=== PATIENT | female | born 1965 | race Caucasian/White ===

== ENCOUNTER 2021-09-28 08:48 | Outpatient (CLI) | payer OTHER, SELFPAY ==
[2021-09-28 10:28] LABS: Chloride* 104 mmol/L (96-114); Potassium* 4.6 mmol/L (3.6-5.1); Sodium* 140 mmol/L (135-149)
[2021-09-28 10:30] LABS: Alkaline Phosphatase* 70 U/L (40-150); Amylase* 58 U/L (18-89); Aspartate Amino Transferase* 24 U/L (12-35); Blood Urea Nitrogen* 14 mg/dL (7-30); Carbon Dioxide* 31 mmol/L (20-32); Creatinine* 0.7 mg/dL (0.5-1.5); Estimated Glomerular Filt Rate 102.71; Glucose* 90 mg/dL (60-115); Total Protein* 6.4 g/dL (6.0-8.3)
[2021-09-28 10:31] LABS: Alanine Aminotransferase* 19 U/L (4-35); Calcium* 8.7 mg/dL (8.4-10.6); Lipase* 67 U/L (23-300)
== END 2021-09-28 08:49 | disposition home or self-care (01) ==
PROVIDERS: PCP Family Medicine; Visit Provider Family Medicine
DX: R74.8 Abnormal levels of other serum enzymes; K80.20 Calculus of gallbladder without cholecystitis without obstruction
CPT/HCPCS: 80053; 82150; 83690

== ENCOUNTER 2021-10-04 07:10 | Outpatient (CLI) | payer OTHER, SELFPAY ==
--- NOTE | 2021-10-04 07:15 | CRLHL7_ITS ---
For Patients: As a result of the Cures Act, medical imaging exams and procedure reports are released immediately into your electronic medical record. You may view this report before your referring provider. If you have questions, please contact your health care provider. INDICATION: ABNORMAL LEVELS OF OTHER SERUM ENZYMES, KNOWN GALLSTONES COMPARISON: Ultrasound and CT 08/12/2021 TECHNIQUE: Real time layne scale imaging and color Doppler analysis was performed of the abdomen. FINDINGS: The patient`s liver is of normal size and has uniform echogenicity. There is a normal appearance of the hepatic IVC and proximal abdominal aorta. There is no evidence of ascites. Small layering gallstones are again noted within the gallbladder lumen. The gallbladder wall measures 2 mm in thickness. The common bile duct is of normal size and measures 4 mm in diameter at the level of the chelo hepatis. The pancreas appears normal. There is no evidence of a stone or hydronephrosis within the right and left kidney. The right kidney measures 11.8 cm in length. The left kidney measures 12.2 cm in length. Multiple splenic lesions again noted including a subtly hyperechoic mass measuring 2.4 x 2.4 cm. Incidental splenule noted measuring 1.1 cm. Mildly prominent right upper quadrant lymph node is present measuring 2 cm. IMPRESSION: Stable cholelithiasis with multiple small mobile layering gallstones. No evidence of cholecystitis. Similar appearance of the spleen with multiple indeterminate hypoechoic/hyperechoic lesions. No ascites. No splenomegaly. Dictated by Myron Shukla MD @ 10/04/2021 9:12:24 AM (Electronically Signed)
== END 2021-10-04 07:11 | disposition home or self-care (01) ==
PROVIDERS: PCP Family Medicine; Visit Provider Family Medicine
DX: R74.8 Abnormal levels of other serum enzymes (principal); K80.20 Calculus of gallbladder without cholecystitis without obstruction; R10.9 Unspecified abdominal pain
CPT/HCPCS: 76700

== ENCOUNTER 2021-12-12 06:14 | Day surgery (SDC) | payer OTHER, SELFPAY ==
[2021-12-12] VITALS (19 sets, daily range): BP systolic 98–137; BP diastolic 59–81; PULSE 46–89; RESP 15–18; TEMP 36.2–36.8; O2SAT 87–99; BMI 26.2
[2021-12-12] MEDS: LACTATED RINGERS 1000 ML 1,000 ML 100 ML IV ×2 (07:00→07:46)
[2021-12-12] MEDS: SODIUM CHLORIDE 0.9 % (FLUSH) 10 ML SYRINGE IVF (07:00)
[2021-12-12] MEDS: CEFAZOLIN 2 GM INJ IVP (07:45)
[2021-12-12] MEDS: BUPIVACAINE 0.25% 30 ML INJECTION (08:24)
--- NOTE | 2021-12-12 08:48 | W.ANESCHARGE ---
Anesthesia Charges Start Date/Time Anesthesia Start Date: 12/12/21 Anesthesia Start Time: 07:27 Stop Date/Time Anesthesia Stop Date: 12/12/21 Anesthesia Stop Time: 08:44 Summary Emergency: No
[2021-12-12] MEDS: fentaNYL 100 MCG/2 ML inj 50 MCG IVP ×2 (08:58→09:22)
--- NOTE | 2021-12-12 09:03 | W.ANESCHARGE ---
Anesthesia Charges Start Date/Time Anesthesia Start Date: 12/12/21 Anesthesia Start Time: 07:27 Stop Date/Time Anesthesia Stop Date: 12/12/21 Anesthesia Stop Time: 08:44 Summary Emergency: No
--- NOTE | 2021-12-12 09:03 | PC.NURSE ---
reinforced dressing on patient's left abdomen. Steri strips secure and placed 2x2.
[2021-12-12] MEDS: ONDANSETRON 2 MG/ML inj 4 MG IVP (09:09)
[2021-12-12] MEDS: METOCLOPRAMIDE HCL 5 MG/ML INJ 10 MG IVP (09:55)
--- NOTE | 2021-12-12 10:14 | P.GSOP_ITS ---
Operative Note Date of procedure: 12/12/21 Type of Procedure: 1. Laparoscopic cholecystectomy. Procedure Description: After discussing the risks and benefits of the procedure, the patient signed informed consent.? The operative site was marked and the patient was brought to the operating room and placed on the operating table in supine position.? Care was taken to pad the patient's pressure points.?? The patient was then intubated by anesthesia.?? The operative site was then prepped and draped in the usual sterile fashion.? A time-out was then performed. ? A 5-mm laparoscopy port was placed in the left upper quadrant guided by a 5-mm laparoscope placed into a translucent trochar.~ Passage through the layers of the abdominal wall was visualized with the laparoscope.~ A pneumoperitoneum was established. A 0-degree 5-mm laparoscope was advanced into the abdomen. The abdomen was briefly surveyed, and no adhesions were noted. A 10-mm port were placed infraumbilically and two more 5 mm ports were placed on the right under direct visualization by laparoscope. The camera was then changed to 10 mm 30- degree scope and placed into the abdomen through the 10 mm port. The left upper quadrant port entrance was examined and no injury to intra-abdominal organs was identified. The gallbladder was identified, the fundus grasped and retracted cephalad. Omentum was adherent to the anterior surface of the gallbladder, and those adhesions were taken down with hook cautery. The infundibulum was grasped and retracted laterally, exposing the peritoneum overlying the triangle of Calot. This was then divided and exposed in a blunt fashion and with hook cautery. Common bile duct was not identified but care was taken not to injure it. The cystic duct was clearly identified and bluntly dissected circumferentially. Cystic artery was identified and was was very small. The tissues around it were dissected off. The cystic artery and the cystic duct were clearly going into the gallbladder. The cystic artery was divided with hook cautery. The proximal end of the cystic artery was clipped with 5 mm clip. The cystic duct was then doubly ligated with surgical clips on the patient's side and singly clipped on the gallbladder side and divided. The gallbladder was dissected from the liver bed in retrograde fashion using hookcautery. The gallbladder was placed into an Endo-Catch bag and removed through the infraumbilical incision. Surgical site was examined for bleeding. Minimal bleeding was noted from the gallbladder fossa. This was controlled with a 5 mm clip and hook cautery. No further bleeding was seen in the surgical field. The fascia of the infraumbilical incision was then closed with 0-0 vicryl using Hamilton Karol needle under direct visualization. Pneumoperitoneum was completely reduced after viewing removal of the trocars under direct vision. The skin was then closed with 4-0 monocryl and steristrips were applied. Instrument, sponge, and needle counts were correct at closure and at the conclusion of the case. The patient was transferred to PACU in stable condition. Findings: Cholelithiasis. No evidence of enlarged lymph nodes near the gallbladder or visualized portion of the right upper quadrant. No acute inflammation. Anesthesia: GETA Surgeon: Suyapa Gandhi MD Estimated blood loss (mL): 5 Condition: stable Disposition: PACU
[2021-12-12] MEDS: HYDROCODONE-ACETAMIN 5-325 MG 1 TAB PO (10:38)
== END 2021-12-12 11:37 | disposition home or self-care (01) ==
PROVIDERS: PCP Family Medicine; Visit Provider Surgery
PROC: 0FT44ZZ Resection of Gallbladder, Percutaneous Endoscopic Approach (ICD-10-PCS; CPT 47562; principal; 2021-12-12 07:30)
DX: K80.10 Calculus of gallbladder with chronic cholecystitis without obstruction (principal)
CPT/HCPCS: 47562; 00790; 88304; A9270; J0330; J0690; J1100; J2250; J2405; J2704; J2710; J2765; J3010; J3490; J7120

== ENCOUNTER 2022-01-05 13:11 | Outpatient (CLI) | payer OTHER, SELFPAY ==
--- OUTSIDE RECORDS SUMMARY | 2022-01-05 13:29 | XMS_ITS | Clinical Summary ---
:1965 Author Organization [employer] [facility] [employer] [facility] [place] [address] Care Team Providers Name Role Phone Unavailable Primary Care Provider Unavailable Allergies No known active allergies Medications Medication Sig Dispensed Refills Start Date End Date Status multivitamin (MVI) Take 1 tablet by 0 05/14/2015 Active tablet mouth once daily. Calcium-Cholecalciferol Take 1 tablet by 0 6 Active , D3, (CALCIUM 500+D) mouth 2 times 500 mg(1,250mg) -400 daily. unit chewable tablet cetirizine (ZYRTEC) 10 Take 1 tablet by 30 tablet 6 05/14/2015 Active mg tabletIndications: mouth once daily. Persistent cough ferrous sulfate, 65 mg Take 1 tablet by 60 tablet 3 12/15/2016 Active elemental, (IRON, mouth 2 times FERROUS SULFATE,) daily with meals. tabletIndications: S/P gastric bypass, Low ferritin Hospital, Clinic, or Ordered Dose Route Frequency Start Date End D ate Status Other Facility Administered Medication cyanocobalamin 1,000 1000 mcg IM Q 4 WEEKS (28 12/16/2016 Active mcg injection (VITAMIN DAYS) B12)Indications: S/P gastric bypass, Vitamin B 12 deficiency Active Problems Problem Noted Date Presbyopia 02/22/2017 Alcohol addiction 12/11/2014 Iron deficiency anemia 06/17/2013 Leukopenia 06/17/2013 Rectal bleeding 06/17/2013 Gallstones 02/20/2013 Vitamin D deficiency 02/07/2013 S/P gastric bypass 07/07/2011 Other chronic allergic conjunctivitis 09/15/2008 Myopia 09/15/2008 Impaired fasting glucose 07/21/2008 Other and unspecified hyperlipidemia 04/19/2007 Adjustment disorder with depressed mood 07/13/2006 Undiagnosed cardiac murmurs 07/13/2006 Overview: Aortic sclerosis without stenosis echoca rdiogram 02/25/14. Closed fracture of triquetral (cuneiform) bone of wris t 05/22/2006 Overview: 2002 Resolved Problems Problem Noted Date Resolved Date Vitamin D deficiency 06/17/2013 05/14/2015 Elevated liver enzymes 02/06/2013 06/17/2013 Normocytic anemia 02/06/2013 05/14/2015 Morbid obesity 12/28/2008 02/07/2011 Regular astigmatism 09/15/2008 02/24/2011 Encounters Date Type Specialty Care Team Description 12/12/2021 Lab Requisition Suyapa Gandhi MD from Last 3 Months Immunizations Name Administration Dates Next Due Influenza, IIV3 (Age >=3 years) 01/05/2011 Influenza, IIV4 12/27/2015 MMR 06/30/2008 Td (Age >=7 Years) 03/31/2002, 01/14/1991 Tdap 06/16/2008 Varicella Vaccine 12/15/1999 Family History Medical History Relation Name Comments Unknown Brother 2 brothers Diabetes Father Heart Disease Father at 67 from heart disease Stroke Father Hypertension Mother Hypertension Sister 2 sisters douglas high BP,Lyssa Cancer-breast No Family History Relation Name Status Comments Brother Father Mother Sister Social History Tobacco Use Types Packs/Day Years Used Date Former Smoker 5 Quit: 09/05/19 07 Smokeless Tobacco: Never Used Tobacco Cessation: Counseling Given: Yes Alcohol Use Standard Drinks/Week Comments No 0 (1 standard drink = 0.6 oz pure heavy drinker in the past - quit alcohol) drinking 12/11/14 Alcohol Habits Answer Date Recorded How often do you have a drink Not asked containing alcohol? How many drinks containing alcohol do Not asked you have on a typical day when you are drinking? How often do you have six or more Not asked drinks on one occasion? Comment: heavy drinker in the past - quit 016 drinking 12/11/14 Sex Assigned at Date Recorded Not on file Obstetrics History Para Term AB IAB SAB Ectopic Multiple Living Live Births 5 4 3 0 1 1 0 0 0 3 Date Outcome GA Total Labor/2nd/3rd Weight Sex Delivery Anes PTL Romana A 1 A5 Name Clin Labor IAB Term Term Term Para Last Filed Vital Signs Vital Sign Reading Time Taken Comments Blood Pressure 115/75 02/22/2017 5:29 PM LICENSED SOCIAL WORKER Pulse 55 02/22/2017 5:29 PM LICENSED SOCIAL WORKER Temperature 36.3 ??C (97.4 ??F) 12/16/2014 8:20 AM CDT Respiratory Rate 16 12/16/2014 8:20 AM CDT Oxygen Saturation 100% 05/14/2015 7:06 AM LICENSED SOCIAL WORKER Inhaled Oxygen Concentration - - Weight 68.9 kg (151 lb 12.8 oz) 12/15/2016 7:07 AM CDT Height 162.6 cm (5' 4) 12/15/2016 7:07 AM CDT Body Mass Index 26.06 12/15/2016 7:07 AM CDT Plan of Treatment Health Maintenance Due Date Last Done Comments COVID-19 vaccine series (#1) 1965 Colonoscopy through age 75 2012 Zoster (shingles) series for age 0104/09/2017 50+ (1 of 2) BMI (ht and wt on same day) for 12/15/2017 12/15/2016, 01/17, age 18+ 05/14/2015 Depression screening for age 12+ 12/15/2017 12/15/2016, Mammogram for age 45-75 02/07/2018 02/07/2017, 01/30/2017, 01/06/2014, Additional history exists Tetanus booster 06/16/2018 06/16/2008, 03/31/2002, 01/14/1991 Influenza for age 50-64 11/17/2021 12/27/2015, 01/05/2011 Lipids for age 45-75 12/15/2021 12/15/2016, 06/16/2013, 07/07/2011, Additional history exists Pap test for age 21-65 12/17/2021 12/17/2018, 12/17/2018, 12/15/2016, Additional history exists Tdap Completed 06/16/2008 Hepatitis C screening for age Completed 06/16/2013 18-79 Medical Devices Implanted Type Area Gas Plant Operator Device Shelf Model / Identifier Expiration Serial / Date Lot Jayant Flores [id number] - [id number] N/A: Everardo Cuenca And 09/17/2011 [id number] / Implanted: Qty: 1 on 01/14/2009 at [facility] / [id number] Procedures Procedure Name Priority Date/Time Associated Diagnosis Comme nts LAB TRACKING EVENT Routine 12/12/2021 8:33 AM CDT PATH TISSUE EXAM Routine 12/12/2021 8:15 AM Resul ts for this CDT procedure are i n the results section. from Last 3 Months Results LAB TRACKING EVENT (12/12/2021 8:33 AM CDT) Specimen Anatomical Collection Method Collection Time Receive d Time (Source) Location / / Volume Laterality Other (Other) Client Collect / 12/12/2021 8:33 AM 11/18 5:46 Unknown CDT PM CDT Suyapa Gandhi MD LAB BILL ONLY Performing Organization Address City/State/ZIP Code Phon e Number [employer] [id number] [place] [address] LABORATORY-CENTRAL 2000 LABORATORY PATH TISSUE EXAM (12/12/2021 8:15 AM CDT) Component Value Ref Test Analysis Performed At [facility] gist Range Method Time Signature Case Report Pathology Report ?Case: [id number] ? 12/14/2021 [place] Authorizing Provider: ??Suyapa Shannon MD ?Collected: ? 12/12/2021 0815 ? 9:18 AM HEALTH Ordering Location: ? [facility] CENTRAL LAB ?Received: ?12/12/2021 1815 ? CDT ASHLEY BROOKEC Pathologist: ? Daisy, Mckinley Wander ? ENTRAL ? MD [facility] ? LABORATORY Specimen: ?Gallbladder ? Final A) GALLBLADDER, CHOLECYSTECTOMY: 022 [facility] Electronically Diagnosis 1. Chronic cholecystitis 9:18 AM HEALT H signed by 2. Cholelithiasis CDT LABORATORY-C Nicola, 3. Negative for dysplasia and malignancy ENTRAL Mckinley HIGH IV, MD on 12/14/2021 at 9:18 AM Clinical Ms. Kessler is 12/14/2021 [facility] Information a 56 y.o. who 9:18 AM HEALTH presents with CDT LABORATORY-C biliary colic and ENTRAL now undergoes LABORATORY cholecystectomy. Gross A) Received in formalin, lab eled with the patient's name and gallbladder, is a 8.6 x 3.6 x 2.8 cm intact gallbladder. ??There are multiple black gallstones identified. There are no mucosal lesions kelvin 12/14/2021 [facility] Description ntified. The average wall th ickness is 0.1 cm. There is no abnormal wall thickening identified. No cystic duct lymph node is identified. Coordinator Of Online Programs sections are submitted in one cassette. 9:18 AM HEALTH CDT LABORATORY-C SSS 12/12/2021 ENTRAL LABORATORY Microscopic The final 12/14/2021 [facility] Description diagnosis is 9:18 AM HEALTH based on CDT LABORATORY-C microscopic ENTRAL examination of LABORATORY appropriate sections of all specimens. Additional 12/14/2021 [place] Information Interpreted at [facility], Central Laboratory - [address], [place] [address] 9:18 AM HEALTH CDT LABORATORY-C ENTRAL LABORATORY Specimen Anatomical Location Collection Method Collection Time Received Time (Source) / Laterality / Volume Other SPECIMEN FROM 12/12/2021 8:15 12/12/2021 6:15 GALLBLADDER / AM CDT PM CDT Unknown Suyapa Gandhi MD PATHOLOGY/CYTOLOGY Performing Organization Address City/State/ZIP Code Phon e Number [employer] [id number] [place] [address] LABORATORY-CENTRAL 2000 LABORATORY from Last 3 Months Insurance Payer Benefit Plan / Subscriber ID Effective Dates Phone Addre ss Type Group PREFERRED ONE PREFERRED ONE [id number] 2016-Present [address] [place] [address] [facility] Contract 03/19/2006 [address] CONTRACT,[employer]IT[employer] (Work) [address] [place] [address] Advance Directives Latest Code Status on File Code Status Date Activated Date Inactivated Comments Full Code 12/11/2014 8:42 PM 12/16/2014 12:40 PM Code Status Discussion: Not Discussed Full Code 01/14/2009 10:14 AM 01/15/2009 6:19 PM Full Code 01/14/2009 5:39 AM 01/14/2009 10:14 AM
== END 2022-01-05 13:12 | disposition home or self-care (01) ==
LOC: NFLDREF 13:15
PROVIDERS: PCP Family Medicine; Visit Provider Family Medicine
DX: R30.9 Painful micturition, unspecified (principal); R30.0 Dysuria
CPT/HCPCS: 87086

== ENCOUNTER 2022-02-22 07:09 | Outpatient (CLI) | payer OTHER, SELFPAY ==
--- NOTE | 2022-02-22 07:15 | CRLHL7_ITS ---
For Patients: As a result of the Century Cures Act, medical imaging exams and procedure reports are released immediately into your electronic medical record. You may view this report before your referring provider. If you have questions, please contact your health care provider. INDICATION: Lymphadenopathy TECHNIQUE: Ultrasound abdomen complete. Sonographic images of the entire abdomen were obtained using layne-scale and color Doppler. COMPARISON: FINDINGS: Liver: Normal in size and echotexture. No masses. No intrahepatic biliary dilatation. Gallbladder: No stones or sludge. Normal wall thickness. No pericholecystic fluid. Common bile duct: 4 mm. Pancreas: Normal. Spleen: Normal in size and appearance. Right kidney: 10.1 cm. Normal echotexture and cortex. No masses, stones, or hydronephrosis. Left kidney: 10.3. Normal echotexture and cortex. No masses, stones, or hydronephrosis. Vasculature: Proximal abdominal aorta and IVC are normal in caliber. IMPRESSION: Unremarkable abdomen ultrasound. Previously noted splenic cyst and require lymph node not identified on current study. Dictated by Myron Salas MD @ 02/22/2022 9:14:03 AM (Electronically Signed)
== END 2022-02-22 07:10 | disposition home or self-care (01) ==
PROVIDERS: PCP Family Medicine; Visit Provider Surgery
DX: R59.1 Generalized enlarged lymph nodes (principal)
CPT/HCPCS: 76705

== ENCOUNTER 2022-02-22 14:47 | Outpatient (CLI) | payer OTHER, SELFPAY ==
--- OUTSIDE RECORDS SUMMARY | 2022-02-22 07:08 | XMS_ITS | Clinical Summary ---
:1965 Author Organization [employer] [facility] Address [place] [address] Care Team Providers Name Role Phone Unavailable [...] Comments Blood Pressure 115/75 02/22/2017 5:29 PM RESIDUE FURNACE OPERATOR Pulse 55 02/22/2017 5:29 PM RESIDUE FURNACE OPERATOR Temperature 36.3 ??C (97.4 ??F) 12/16/2014 8:20 AM CDT Respiratory Rate 16 12/16/2014 8:20 AM CDT Oxygen Saturation 100% 05/14/2015 7:06 AM RESIDUE FURNACE OPERATOR Inhaled Oxygen Concentration - - Weight 68.9 kg (151 lb 12.8 oz) 12/15/2016 7:07 AM CDT Height 162.6 cm (5' 4) 12/15/2016 7:07 AM CDT Body Mass Index 26.06 12/15/2016 7:07 AM CDT Plan of Treatment Upcoming Encounters Date Type Specialty Care Team Description 02/22/2022 Orders Only Health Maintenance Due Date Last Done Comments COVID-19 vaccine series (#1) 1965 HIV for age 15-65 1982 Colonoscopy through age 75 2012 Zoster (shingles) [...] 06/16/2013 18-79 Medical Devices Implanted Type Area Jointer Operator Device Shelf Model / Identifier Expiration Serial / Date Lot Jayant Flores [id number] - [id number] N/A: Everardo Cuenca And 09/17/2011 [id number] / Implanted: Qty: 1 on 01/14/2009 at [facility] / [id number] Procedures Procedure Name Priority Date/Time Associated Diagnosis [...] Organization Address City/State/ZIP Code Phon e Number [facility] [address] [place] [address] LABORATORY-CENTRAL 2000 LABORATORY PATH TISSUE EXAM (12/12/2021 8:15 AM CDT) Component Value Ref Test Analysis Performed At [facility] gist Range Method Time Signature Case Report Pathology Report ?Case: [id number] ? 12/14/2021 [place] Authorizing Provider: ??Suyapa Shannon MD ?Collected: ? 12/12/2021 0815 ? 9:18 AM HEALTH Ordering Location: ? [facility] CENTRAL LAB ?Received: ?12/12/2021 1815 ? CDT [facility]-C Pathologist: ? Mckinley Petersen ? ENTRAL ? MD [facility] ? LABORATORY Specimen: ?Gallbladder ? Final A) GALLBLADDER, CHOLECYSTECTOMY: 022 [facility] Electronically Diagnosis 1. Chronic cholecystitis 9:18 AM HEALT signed by 2. Cholelithiasis CDT LABORATORY-Viktor Petersen, 3. Negative for dysplasia and malignancy ENTRAL Mckinley HIGH IV, MD on 12/14/2021 at 9:18 AM Clinical Ms. Kessler is 12/14/2021 [facility] Information a 56 y.o. who 9:18 AM [facility] presents with CDT LABORATORY-C biliary colic and [...] No cystic duct lymph node is identified. Intelligence Officer sections are submitted in one cassette. 9:18 AM [facility] CDT LABORATORY-C SSS 12/12/2021 ENTRAL LABORATORY Microscopic The final 12/14/2021 [facility] Description diagnosis is 9:18 AM HEALTH based on CDT LABORATORY-C microscopic ENTRAL examination of LABORATORY appropriate sections of all specimens. Additional 12/14/2021 [place] Information Interpreted at [facility], Central Laboratory - [address], [place] [address] 9:18 AM HEALTH CDT LABORATORY-C ENTRAL LABORATORY Specimen Anatomical Location Collection Method Collection Time Received Time (Source) / Laterality / Volume Other SPECIMEN FROM 12/12/2021 8:15 12/12/2021 6:15 GALLBLADDER / AM CDT PM CDT Unknown Suyapa Gandhi MD PATHOLOGY/CYTOLOGY Performing Organization Address City/State/ZIP Code Phon e Number [facility] [address] [place] [address] LABORATORY-CENTRAL 2000 LABORATORY from Last 3 Months Insurance Payer Benefit Plan / Subscriber ID Effective Dates Phone Addre ss Type Group PREFERRED ONE PREFERRED ONE [id number] 2016-Present [address] [place] [address] [facility] Contract 03/19/2006 [facility] [address] CONTRACT,DIMITRIOS (Work) [address] [place] [address] Advance Directives Latest Code Status on File Code Status Date Activated Date Inactivated Comments Full Code 12/11/2014 8:42 PM 12/16/2014 12:40 PM Code Status Discussion: Not Discussed Full Code 01/14/2009 10:14 AM 01/15/2009 6:19 PM Full Code 01/14/2009 5:39 AM 01/14/2009 10:14 AM
--- OUTSIDE RECORDS SUMMARY | 2022-02-22 14:48 | XMS_ITS | Clinical Summary ---
:1965 Author Organization [employer] [facility] [place] [address] Care Team Providers Name Role Phone Unavailable [...] Comments Blood Pressure 115/75 02/22/2017 5:29 PM CABLE WORKER HELPER Pulse 55 02/22/2017 5:29 PM CABLE WORKER HELPER Temperature 36.3 ??C (97.4 ??F) 12/16/2014 8:20 AM CDT Respiratory Rate 16 12/16/2014 8:20 AM CDT Oxygen Saturation 100% 05/14/2015 7:06 AM CABLE WORKER HELPER Inhaled Oxygen Concentration - - Weight 68.9 [...] 06/16/2013 18-79 Medical Devices Implanted Type Area Pet Walker Device Shelf Model / Identifier Expiration Serial / Date Lot Jayant Flores [id number] - [id number] N/A: Everardo Cuenca And 09/17/2011 [id number] / Implanted: Qty: 1 on 01/14/2009 at [facility] / [id number] Procedures Procedure Name Priority Date/Time Associated Diagnosis [...] Organization Address City/State/ZIP Code Phon e Number [facility] [address] [place] [address] LABORATORY-CENTRAL 2000 LABORATORY PATH TISSUE EXAM (12/12/2021 8:15 AM CDT) Component Value Ref Test Analysis Performed At [facility] gist Range Method Time Signature Case Report Pathology Report ?Case: [id number] ? 12/14/2021 [place] Authorizing Provider: ??Suyapa Shannon MD ?Collected: ? 12/12/2021 0815 ? 9:18 AM HEALTH Ordering Location: ? [facility] CENTRAL LAB ?Received: ?12/12/2021 1815 ? [...] Information a 56 y.o. who 9:18 AM [facility] presents with CDT LABORATORY-C biliary colic [...] No cystic duct lymph node is identified. Quality Process Auditor sections are submitted in one cassette. 9:18 AM [facility] CDT LABORATORY-C SSS 12/12/2021 ENTRAL LABORATORY Microscopic The final 12/14/2021 [facility] Description diagnosis is 9:18 AM HEALTH based on CDT LABORATORY-C microscopic ENTRAL examination of LABORATORY appropriate sections of all specimens. Additional 12/14/2021 [place] Information Interpreted at [facility], Central Laboratory - [address], [place] [address] 9:18 AM HEALTH CDT LABORATORY-C ENTRAL LABORATORY Specimen Anatomical Location Collection Method Collection Time Received Time (Source) / Laterality / Volume Other SPECIMEN FROM 12/12/2021 8:15 12/12/2021 6:15 GALLBLADDER / AM CDT PM CDT Unknown Suyapa Gandhi MD PATHOLOGY/CYTOLOGY Performing Organization Address City/State/ZIP Code Phon e Number [facility] [address] [place] [address] LABORATORY-CENTRAL 2000 LABORATORY from Last 3 Months Insurance Payer Benefit Plan / Subscriber ID Effective Dates Phone Addre ss Type Group PREFERRED ONE PREFERRED ONE [id number] 2016-Present [address] [place] [address] [facility] Contract 03/19/2006 [facility] [address] CONTRACT,DIMITRIOS (Work) [address] [place] [address] Advance Directives Latest Code Status on File Code Status Date Activated Date Inactivated Comments Full Code 12/11/2014 8:42 PM 12/16/2014 12:40 PM Code Status Discussion: Not Discussed Full Code 01/14/2009 10:14 AM 01/15/2009 6:19 PM Full Code 01/14/2009 5:39 AM 01/14/2009 10:14 AM
== END 2022-02-22 14:48 | disposition home or self-care (01) ==
LOC: RAD 14:47
PROVIDERS: PCP Family Medicine; Visit Provider Family Medicine
DX: R01.1 Cardiac murmur, unspecified (principal)
CPT/HCPCS: 93306

== ENCOUNTER 2022-12-06 07:48 | Outpatient (CLI) | payer OTHER, SELFPAY | END 2022-12-06 07:49 | disposition home or self-care (01) | LOC: NFLDREF 12-08 09:05 | PROVIDERS: PCP Family Medicine; Referring Provider Family Medicine; Visit Provider Family Medicine | DX: Z00.00 Encounter for general adult medical examination without abnormal findings (principal); D50.9 Iron deficiency anemia, unspecified; E55.9 Vitamin D deficiency, unspecified; R74.8 Abnormal levels of other serum enzymes; R79.89 Other specified abnormal findings of blood chemistry | CPT/HCPCS: 80053; 80061; 82306; 82607; 82728; 83540; 83550 ==

== ENCOUNTER 2022-12-19 07:01 | Outpatient (CLI) | payer OTHER, SELFPAY ==
--- NOTE | 2022-12-19 07:15 | MR_ITS ---
[address] [address] Phone:?[phone] Fax:?[phone] Referring Physician Information: Rachelle Urbano [address] [facility] [address] Phone:?[phone] Fax:?[phone] Patient:Evy Kessler D.O.B:?1965 Sex:?Female Phone:?[phone] [facility] MRN:?[id number] Exam Date:?12/19/2022 EXAM: MRI of the LEFT SHOULDER, without contrast CLINICAL HISTORY: Adhesive capsulitis of left shoulder. Evaluate for internal derangement. COMPARISONS: None available. TECHNICAL: MRI sequences of the left shoulder: Axials: PD, T2 Coronals: PD, STIR, T2 Sagittals: PD, T2 SEDATION: None CONTRAST: None FINDINGS: Bones: No fracture or suspicious bone marrow signal abnormality. Coracoacromial arch: Acromion: No os acromiale. Type I-II acromion. Acromiohumeral space: The bony distance is unremarkable. Acromioclavicular joint: Mild degenerative changes. Coracoclavicular ligament: The coracoclavicular ligament is intact. Rotator cuff muscles/tendons: Supraspinatus: Slight tendinopathy. No muscular atrophy. Infraspinatus: The infraspinatus tendon and muscle are intact. Teres minor: The teres minor tendon and muscle are intact. Subscapularis: The subscapularis tendon and muscle are intact. Labrum and glenohumeral joint: There is a type II SLAP tear from the 12 o'clock position through 10 o'clock position posterosuperiorly best seen on coronal images 13 through 16. Physiologic amount of joint fluid. No discrete chondral defect or subchondral bone marrow edema/cystic change is seen. There is edema-like signal within and thickening of the inferior glenohumeral ligament. Proximal biceps tendon, long head and short heads: The long and short heads of the proximal biceps tendon are intact. Bursae: Subacromial/subdeltoid: Slight bursitis. Subcoracoid: No convincing subcoracoid bursal thickening/bursitis. IMPRESSION: 1. Findings associated with adhesive capsulitis. 2. Type II SLAP tear from the 12 o'clock position through 10 o'clock position posterosuperiorly. 3. Slight supraspinatus tendinopathy. 4. No rotator cuff tendon tear or rotator cuff muscular atrophy. 5. Slight subacromial/subdeltoid bursitis. 6. Intact biceps tendon. RCB Electronically signed on 12/20/2022 1:10:00 PM by Bismark Benitez M.D.
== END 2022-12-19 07:02 | disposition home or self-care (01) ==
LOC: MRI 07:02
PROVIDERS: PCP Family Medicine; Visit Provider Physician Assistant Surgical
DX: M25.512 Pain in left shoulder (principal); M75.02 Adhesive capsulitis of left shoulder; S43.432A Superior glenoid labrum lesion of left shoulder, initial encounter
CPT/HCPCS: 73221

== ENCOUNTER 2022-12-27 07:36 | Outpatient (CLI) | payer OTHER, SELFPAY ==
--- NOTE | 2022-12-27 07:45 | CRLHL7_ITS ---
For Patients: As a result of the Century Cures Act, medical imaging exams and procedure reports are released immediately into your electronic medical record. You may view this report before your referring provider. If you have questions, please contact your health care provider. BILATERAL SCREENING MAMMOGRAM WITH COMPUTER-AIDED DETECTION AND TOMOSYNTHESIS TECHNIQUE: CC and MLO views were obtained. These mammographic images have been obtained using full-field digital technique. These mammographic images were interpreted with the benefit of computer-aided detection. Breast tomosynthesis was used in this interpretation. COMPARISON FILM: 08/02/21, 01/30/19, 01/30/17. FINDINGS: There are scattered areas of fibroglandular density. IMPRESSION: There is no radiographic evidence for malignancy. ASSESSMENT: BI-RADS Category 1: Negative RECOMMENDATION: Routine screening mammogram in 1 year. A lay language report of this examination will be provided to the patient. MYRON PAT M.D. Diagnostic Radiologist [email or web address] [place]OL[place]/kee Transcribed: 12/28/2022, 6:[address]/Dictated by: Myron Pat MD @ 12/28/2022 1:26:00 PM (Electronically Signed)
== END 2022-12-27 07:37 | disposition home or self-care (01) ==
LOC: MAMMO 07:37
PROVIDERS: PCP Family Medicine; Visit Provider Family Medicine
DX: Z12.31 Encounter for screening mammogram for malignant neoplasm of breast (principal)
CPT/HCPCS: 77063; 77067

== ENCOUNTER 2023-02-05 08:30 | Outpatient (RCR) | payer OTHER, SELFPAY | END 2023-04-20 10:57 | disposition home or self-care (01) | PROVIDERS: PCP Family Medicine; Visit Provider Physician Assistant Surgical | DX: M75.02 Adhesive capsulitis of left shoulder (principal); M25.512 Pain in left shoulder; R29.898 Other symptoms and signs involving the musculoskeletal system; Z74.09 Other reduced mobility; G47.9 Sleep disorder, unspecified; Z51.89 Encounter for other specified aftercare | CPT/HCPCS: 97035; 97110; 97140; 97162 ==

== ENCOUNTER 2023-02-15 15:32 | Outpatient (CLI) | payer OTHER, SELFPAY ==
[2023-02-15 19:39] LABS: Chlamydia DNA Amplified* NOT DETECTED (No Detected); GC DNA Amplified* NOT DETECTED (No Detected)
== END 2023-02-15 15:33 | disposition home or self-care (01) ==
LOC: NFLDREF 15:34
PROVIDERS: PCP Family Medicine; Visit Provider Family Medicine
DX: N89.8 Other specified noninflammatory disorders of vagina (principal)
CPT/HCPCS: 87491; 87591

== ENCOUNTER 2023-03-30 13:45 | Outpatient (CLI) | payer OTHER, SELFPAY ==
--- OUTSIDE RECORDS SUMMARY | 2023-03-30 13:48 | XMS_ITS | Clinical Summary ---
Author Name Unknown Organization [facility] Address [place], [place] [address] Care Team Providers Care Reporter Name Role Phone Lucero Garibay MD Primary Care Provider + Allergies No known active allergies Medications Medication Sig Dispensed Refills Start Date End Date Status multivitamin (MVI) tablet Take 1 tablet by mouth once daily. 0 05/14/2015 Active Calcium-Cholecalcifer ol, D3, (CALCIUM 500+D) 500 mg(1,250mg) -400 unit chewable tablet Take 1 tablet by mouth 2 times daily. 0 05/14/2015 Active cetirizine (ZYRTEC) 10 mg tabletIndications:Per sistent cough Take 1 tablet by mouth once daily. 30 tablet 6 05/14/2015 Active ferrous sulfate, 65 mg elemental, (IRON, FERROUS SULFATE,) tabletIndications:S/P gastric bypass,Low ferritin Take 1 tablet by mouth 2 times daily with meals. 60 tablet 3 12/15/2016 Active Hospital, Clinic, or Other Facility Administered Medication Ordered Dose Route Frequency Start Date End Date Status cyanocobalamin 1,000 mcg injection (VITAMIN B12)Indications:S/P gastric bypass,Vitamin B 12 deficiency 1000 mcg IM Q 4 WEEKS (28 DAYS) 12/16/2016 Active Active Problems Problem Noted Date Diagnosed Date Presbyopia 02/22/2017 Alcohol addiction 12/11/2014 Iron deficiency anemia 06/17/2013 Leukopenia 06/17/2013 Rectal bleeding 06/17/2013 Gallstones 02/20/2013 Vitamin D deficiency 02/07/2013 S/P gastric bypass 07/07/2011 Other chronic allergic conjunctivitis 09/15/2008 Myopia 09/15/2008 Impaired fasting glucose 07/21/2008 Other and unspecified hyperlipidemia 04/19/2007 Adjustment disorder with depressed mood 07/14/19 07 Undiagnosed cardiac murmurs 07/13/2006 Overview: Aortic sclerosis without stenosis echocardiogram 02/25/14. Closed fracture of triquetral (cuneiform) bone o f wrist 05/22/2006 Overview: 2002 Resolved Problems Problem Noted Date Diagnosed Date Resolved Date Vitamin D deficiency 06/17/2013 016 Elevated liver enzymes 02/06/201306/17 Normocytic anemia 02/06/2013 05/14/2015 Morbid obesity 12/28/2008 02/07/2011 Regular astigmatism 09/15/2008 02/25/20 11 Encounters Date Type Department Care Team Description 02/16/2023 Lab Requisition [facility] [phone] Lucero Garibay MD from Last 3 Months Immunizations Name Administration Dates Next Due Influenza, IIV3 (Age >=3 years) 01/05/2011 Influenza, IIV4 12/27/2015 MMR 06/30/2008 Td (Age >=7 Years) 03/31/2002,01/14/1991 Tdap 06/16/2008 Varicella Vaccine 12/15/1999 Family History Medical History Relation Name Comments Unknown Brother 2 brothers Diabetes Father Heart Disease Father at 67 fro m heart disease Stroke Father Hypertension Mother Hypertension Sister 2 sisters douglas high BP,Lyssa Cancer-breast No Family History Relation Name Status Comments Brother Father Mother Sister Social History Tobacco Use Types Packs/Day Years Used Date Smoking Tobacco: Former Cigarettes 5 0 09/04/2001 - 09/04/2006 Smokeless Tobacco: Never Tobacco Cessation:Counseling Given: Yes Alcohol Use Standard Drinks/Week Comments No 0 (1 standard drink = 0.6 oz pure alcohol) heavy drinker in the past - quit drinking 12/11/14 Social Connections Answer Date Recorded Frequency of Communication with Friends and Fami ly Not on file 04/14/2022 Sex and Gender Information Value Date Recorded Sex Assigned at Not on file Gender Identity Not on file Sexual Orientation Not on file Obstetrics History Para Term AB IAB SAB Ectopic Multiple Livin g Live Births 5 4 3 0 1 1 0 0 0 3 Date Outcome GA Total Labor Labor/2nd/3rd Weight Sex Delivery Anes PTL Romana A1 A5 Name Cl in IAB Term Term Term Para Last Filed Vital Signs Vital Sign Reading Time Taken Comments Blood Pressure 115/75 02/22/2017 5:29 PM DIRECTOR OF EMPLOYER SERVICES Pulse 55 02/22/2017 5:29 PM DIRECTOR OF EMPLOYER SERVICES Temperature 36.3 ??C (97.4 ??F) 12/16/2014 8:20 AM CD T Respiratory Rate 16 12/16/2014 8:20 AM CDT Oxygen Saturation 100% 05/14/2015 7:06 AM DIRECTOR OF EMPLOYER SERVICES Inhaled Oxygen Concentration - - Weight 68.9 kg (151 lb 12.8 oz) 12/15/2016 7:07 AM CDT Height 162.6 cm (5' 4) 12/15/2016 7:07 AM CDT Body Mass Index 26.06 12/15/2016 7:07 AM CDT Plan of Treatment Upcoming Encounters Date Type Department Care Team (Late st Contact Info) Description 03/30/2023 2:00 PM DIRECTOR OF EMPLOYER SERVICES Orders Only [facility] [facility] [place] [facility] [address] [place] [address] Health Maintenance Due Date Last Done Comments Pneumococcal series for age 6-64 (1 of 2 - PCV) 1973 HIV for age 15-65 1982 Colonoscopy through age 75 2012 Zoster (shingles) series for age 50+ (1 of 2) 2017 BMI (ht and wt on same day) for age 18+ 12/15/2017 12/15/2016, 01/27/2016, 05/14/2015 Depression screening for age 12+ 12/15/2017 12/16/19 17, 05/14/2015 Mammogram for age 45-75 02/07/2018 02/08/20 17, 01/30/2017, 01/06/2014, Additional history exists Tetanus booster 06/16/2018 06/16/2008, 03/19, 01/14/1991 Lipids for age 45-75 12/15/2021 12/15/2016, 06/16/2013, 07/07/2011, Additional history exists COVID-19 vaccine series ( - 2022- season) 2022 03/01/2021 Influenza for age 50-64 11/17/2022 12/27/2015, 01/05 Pap test for age 21-65 02/15/2026 , 02/15/2023, 12/17/2018, Additional history exists Tdap Completed 06/16/2008 Hepatitis C screening for ag e 18-79 Completed 06/16/2013 Medical Devices Implanted Type Area Dowel Sticker Operator Device Identifier Shelf Expiration Date Model / Serial / Lot Seamguard Reinforcement [id number] - [id number] Implanted:Qty: 2 on 01/14/2009 at [facility] N/A: Abdomen [employer] 09/17/2011 [id number] # / / [id number] Seamguard Reinforcement [id number] - [id number] Implanted:Qty: 1 on 01/14/2009 at [facility] N/A: Abdomen [employer] 09/17/2011 [id number] # / / [id number] Procedures Procedure Name Priority Date/Time Associated Diagnosis Comments LAB TRACKING EVENT Routine 02/15/2023 3: 25 PM DIRECTOR OF EMPLOYER SERVICES MDS NURSE THIN PREP PAP SCREEN IMAGED Routine 02/15/2023 3:25 PM DIRECTOR OF EMPLOYER SERVICES HPV THIN PREP Routine 02/15/2023 3:25 PM DIRECTOR OF EMPLOYER SERVICES from Last 3 Months Results * LAB TRACKING EVENT (02/15/2023 3:25 PM DIRECTOR OF EMPLOYER SERVICES) Other (Other) Client Collect / Unknown 02/15/2023 3:25 PM DIRECTOR OF EMPLOYER SERVICES 02/16/2023 7:19 PM DIRECTOR OF EMPLOYER SERVICES Lucero Garibay MD LAB BILL ONLY [facility] LABORATORY [address] [place] [id number], * MDS NURSE THIN PREP PAP SCREEN IMAGED (02/15/2023 3:25 PM DIRECTOR OF EMPLOYER SERVICES) Case Report Gynecologic Cytology Report ? Case: [id number] ? Authorizing Provider: ??Lucero Garibay MD ??Collected: ? 02/15/2023 1525 ? Ordering Location: ? [facility] ?Received: ?02/19/2023 1205 ? First Screen: ?Abbie, Xon Cristian ? Rescreen: ?Rocio Ritter ? Specimen: ?MDS NURSE ThinPrep Vial Screening, Cervical/Vaginal ? 03/01/2023 6:22 AM [facility] [employer] LABORATORY-C ENTRAL LABORATORY INTERPRETATION/ RESULT NEGATIVE FOR INTRAEPITHELIAL LESION OR MALIGNANCY (NIL) (none) 03/01/2023 6:22 AM [facility] [employer] LABORATORY-C ENTRAL LABORATORY IMEN ADEQUACY Satisfactory for evaluation Endocervical cells cannot be evaluated due to severe atrophy 03/01/2023 6:22 AM [facility] [employer] LABORATORY-C ENTRAL LABORATORY HPV REQUEST HPV and PAP 03/01/2023 6:22 AM [facility] [employer] LABORATORY-C ENTRAL LABORATORY Date of LMP 03/01/2023 6:22 AM [facility] [employer] LABORATORY-C ENTRAL LABORATORY Comment:unknown Last Pap Date 12/17/2018 03/01/2023 6:22 AM DIRECTOR OF EMPLOYER SERVICES [facility] [employer] [facility] ENTRAK LABORATORY Last Pap Result NIL 6:22 AM DIRECTOR OF EMPLOYER SERVICES [facility] ENTRAK LABORATORY Abnormal Pap or Alba Bx in last 5 years No 03/01/2023 6:22 AM DIRECTOR OF EMPLOYER SERVICES [facility] LABORATORY Menstrual Status Postmenopausal 03/01/2023 6:22 AM DIRECTOR OF EMPLOYER SERVICES [facility] LAB[facility] Alba Bx Done Today No 03/01/2023 6:22 AM DIRECTOR OF EMPLOYER SERVICES [facility]AK LABORATORY Additional Information 03/01/2023 6:22 AM DIRECTOR OF EMPLOYER SERVICES [facility] LABORATORY Comment: Interpreted at [facility] - [address] [facility] [address], [place] [address] Automated Review Successful 03/01/2023 6:22 AM [facility] ENTRAK LABORATORY Comment:Specimen processed s uccessfully by automated reimbursement specialist device, ThinPrep Imaging System, [employer] ANCILLARY TESTING MDS NURSE HPV Ordered, Please see separate report 03/01/2023 6:22 AM [facility] Note The pap test is a screening technique, not a diagnostic procedure. It is used primarily to screen for squamous cancers and precursor lesions. Published studies have shown that it is subject to both false negative and false positive results. The pap test should not be used as the sole means to diagnose or exclude pre-malignant and malignant lesions. 03/01/2023 6:22 AM [facility] Other (Cervical/Vagina l) 02/15/2023 3:25 PM DIRECTOR OF EMPLOYER SERVICES 02/19/2023 12:05 PM DIRECTOR OF EMPLOYER SERVICES Lucero Garibay MD PATHOLOGY/CYTOLO GY [facility]ORY [address] [place] [address], * HPV HIGH RISK (02/15/2023 3:25 PM DIRECTOR OF EMPLOYER SERVICES) TYPE 16 Negative Negative 02/21/2023 3:22 PM DIRECTOR OF EMPLOYER SERVICES [facility] [employer] [facility] TRAL LABORATORY TYPE 18 Negative Negative 02/21/2023 3:22 PM DIRECTOR OF EMPLOYER SERVICES [facility] TRAL LABORATORY OTHER HIGH RISK TYPES Negative Negative 02/21/2023 3:22 PM DIRECTOR OF EMPLOYER SERVICES [facility] LAB[facility] Other (Cervical/Vagina l) 02/15/2023 3:25 PM DIRECTOR OF EMPLOYER SERVICES 02/19/2023 12:05 PM DIRECTOR OF EMPLOYER SERVICES Narrative [facility] - 02/21/2023 3:22 PM DIRECTOR OF EMPLOYER SERVICES HPV types 16, 18, 31, 33, 35, 39, 45, 51, 52, 56, 58, 59, 66 and 68 DNA were undetectable or below the pre-set threshold. Methodology: Jd Salima 4800 HPV Test Lucero Garibay MD MICROBIOLOGY [facility] [address] [place] [id number], from Last 3 Months Advance Directives Latest Code Status on File Code Status Date Activated Date Inactivated Comments Full Code 12/11/2014 8:42 PM 12/16/2014 12:40 PM Question Answer Comments Code Status Discussion: Not Discussed Code Status History Code Status Date Activated Date Inactivated Comments Full Code 01/14/2009 10:14 AM 01/15/2009 6:19 PM Full Code 01/14/2009 5:39 AM 01/14/2009 10:14 AM Care Teams Reporter Relationship Specialty Start Date End Date Lucero Garibay MD [address] [place] [id number] PCP - General Family Practice 02/22/22
== END 2023-03-30 13:46 | disposition home or self-care (01) ==
LOC: RAD 13:46
PROVIDERS: PCP Family Medicine; Visit Provider Internal Medicine
DX: I35.0 Nonrheumatic aortic (valve) stenosis (principal); I34.0 Nonrheumatic mitral (valve) insufficiency; I07.1 Rheumatic tricuspid insufficiency
CPT/HCPCS: 93306

== ENCOUNTER 2023-10-10 11:19 | Outpatient (CLI) | payer OTHER, SELFPAY ==
--- OUTSIDE RECORDS SUMMARY | 2023-10-11 11:08 | XMS_ITS | Clinical Summary ---
Author Organization [facility] Address [place], [place] [address] Care Team Providers Care Textile Knitter Name Role Phone Lucero Garibay MD Primary [...] 1000 mcg IM Q 4 WEEKS (28 days) 12/16/2016 Active Active Problems Problem Noted Date Diagnosed Date Moderate to severe aortic stenosis 05/03/2023 Bicuspid aortic valve 05/03/2023 Tricuspid valve insufficiency 05/03/2023 Presbyopia 02/22/2017 Alcohol addiction 12/11/2014 Iron deficiency [...] 12/28/2008 02/07/2011 Regular astigmatism 09/15/2008 02/25/20 11 Immunizations Name Administration Dates Next Due Influenza, [...] Years Used Date Smoking Tobacco: Former Cigarettes 0 09/04/2001 - 09/04/2006 Smokeless Tobacco: Never [...] Outcome GA Total Labor Labor/2nd/3rd Weight Sex Type Anes PTL Romana A1 A5 Name Clin IAB Term Term Term Para Last Filed Vital Signs Vital Sign Reading Time Taken Comments Blood Pressure 115/75 02/22/2017 5:29 PM PLANER OPERATOR / GRADER Pulse 55 02/22/2017 5:29 PM PLANER OPERATOR / GRADER Temperature 36.3 ??C (97.4 ??F) 12/16/2014 8:20 AM CD T Respiratory Rate 16 12/16/2014 8:20 AM CDT Oxygen Saturation 100% 05/14/2015 7:06 AM PLANER OPERATOR / GRADER Inhaled Oxygen Concentration - - Weight 68.9 [...] 07/07/2011, Additional history exists COVID-19 vaccine series (2022- season) 2022 03/01/2021 Influenza for age 50-64 11/18/2023 12/27/2015, 01/05 Pap test for age 21-65 02/15/2026 , 02/15/2023, 12/17/2018, Additional history exists Tdap Completed 06/16/2008 Hepatitis C screening for ag e 18-79 Completed 06/16/2013 Medical Devices Implanted Type Area Wash Oil Pump Operator Helper Device Identifier Shelf Expiration Date Model / Serial / Lot Seamguard Reinforcement [id number] - [id number] Implanted:Qty: 2 on 01/14/2009 at [facility] N/A: Abdomen [employer] 09/17/2011 [id number] # / / [id number] Seamguard Reinforcement [id number] - [id number] Implanted:Qty: 1 on 01/14/2009 at [facility] N/A: Abdomen [employer] 09/17/2011 [id number] # / / [id number] Procedures Procedure Name Priority Date/Time Associated Diagnosis Comments HPV THIN PREP Routine 02/15/2023 3:25 PM PLANER OPERATOR / GRADER XR MAMMO JASWANT UNI ADDL VIEWS RIGHT Routine 02/07/2017 2:44 PM PLANER OPERATOR / GRADER Abnormal mammogram LIPID PANEL W REFLEX MEASURED LDL Routine 12/15/2016 7:46 AM CDT Overweight ANTI HCV Routine 06/16/2013 8:33 AM CDT Elevated liver enzymes from Last 3 Months or Most Recently Relevant to Health Maintenance Results * HPV HIGH RISK (02/15/2023 3:25 PM PLANER OPERATOR / GRADER) TYPE 16 Negative Negative 02/21/2023 3:22 PM PLANER OPERATOR / GRADER [facility] TRAL LABORATORY TYPE 18 Negative Negative 02/21/2023 3:22 PM PLANER OPERATOR / GRADER [facility] TRAL LABORATORY OTHER HIGH RISK TYPES Negative Negative 02/21/2023 3:22 PM PLANER OPERATOR / GRADER [facility] TRAL LABORATORY Other (Cervical/Vagina l) 02/15/2023 3:25 PM PLANER OPERATOR / GRADER 02/19/2023 12:05 PM PLANER OPERATOR / GRADER [facility] LABORATORY-CENTRAL LABORATORY - 02/21/2023 3:22 PM PLANER OPERATOR / GRADER HPV types 16, 18, 31, 33, 35, 39, 45, 51, 52, 56, 58, 59, 66 and 68 DNA were undetectable or below the pre-set threshold. Methodology: Jd Salima 4800 HPV Test Lucero Garibay MD MICROBIOLOGY [facility] LABORATORY-CENTRAL LABORATORY [address] [place] [address], * XR MAMMO JASWANT UNI ADDL VIEWS RIGHT (02/07/2017 2:44 PM PLANER OPERATOR / GRADER) Anatomical Region Laterality Modality BREASTS, Breast Right Mammograph y 02/07/2017 2:44 PM PLANER OPERATOR / GRADER Narrative 02/07/2017 5:21 PM PLANER OPERATOR / GRADER XR MAMMO JASWANT UNI ADDL VIEWS RIGHT 02/07/2017 2:44 PM INDICATION: Abnormal mammogram. COMPARISON: 01/30/2017, 01/06/2014, 06/30/2008. MAMMOGRAPHIC FINDINGS: Right full-field digital diagnostic mammogram performed. The breast tissue is composed of scattered fibroglandular densities. The asymmetry in the superior right breast on the MLO view at the posterior depth decreases on the additional views compatible with superposition of breast tissue, summation artifact. There is no evidence of suspicious mass or microcalcifications. No mammographic evidence of malignancy. Breast tomosynthesis was used in interpretation. IMPRESSION: ACR BI-RADS Category 2: Benign. Results given to the patient who should resume annual screening mammography. ?? Procedure Note Renée Pavon MD - 02/07/2017 XR MAMMO JASWANT UNI ADDL VIEWS RIGHT 02/07/2017 2:44 PM INDICATION: Abnormal mammogram. COMPARISON: 01/30/2017, 01/06/2014, 06/30/2008. MAMMOGRAPHIC FINDINGS: Right full-field digital diagnostic mammogramperformed. The breast tissue is composed of scattered fibroglandulardensities. The asymmetry in the superior right breast on the MLO view atthe posterior depth decreases on the additional views compatible withsuperposition of breast tissue, summation artifact. There is no evidenceof suspicious mass or microcalcifications. No mammographic evidence ofmalignancy. Breast tomosynthesis was used in interpretation. IMPRESSION: ACR BI-RADS Category 2: Benign. Results given to the patient who should resume annual screeningmammography. Livier Melendez DO MAMMO * LIPID PANEL W REFLEX MEASURED LDL (12/15/2016 7:46 AM CDT) CHOLESTEROL,TOTAL 194 100 - 199 mg/dL 12/15/2016 7:01 PM CDT [facility] TRAL LABORATORY TRIGLYCERIDES 40 <150 mg/dL 12/15/2016 7:01 PM CDT [facility] TRAL LABORATORY HDL CHOLESTEROL 76 >40 mg/dL 7 7:01 PM CDT [facility] TRAL LABORATORY NON-HDL CHOLESTEROL 118 <145 mg/dl 12/15/2016 7:01 PM CDT [facility] TRAL LABORATORY CHOL/HDL RATIO 2.55 <4.50 12/15/2016 7:01 PM CDT [facility] TRAL LABORATORY LDL CHOLESTEROL 110 <=130 mg/dL 12/15/2016 7:01 PM CDT [facility] TRAL LABORATORY PROVIDER ORDERED STATUS RANDOM 12/15/2016 7:01 PM CDT [facility] TRAL LABORATORY Blood BLOOD SPECIMEN / Unknown Venipuncture / Unknown 12/15/2016 7:46 AM CDT 12/15/2016 7:46 AM CDT Livier Melendez DO [facility] [address] [place] [address], * ANTI HCV (06/16/2013 8:33 AM CDT) ANTI HCV Non-reacti ve [facility] Blood specimen (specimen) BLOOD SPECIMEN / Unknown 06/16/2013 8:33 AM CDT 06/16/2013 8:20 AM CDT Livier Melendez DO SEND OUTS [facility] LABORATORY INTERNAL ZIP [id number] [place], [place] [id number] from Last 3 Months or Most Recently Relevant to Health Maintenance Advance Directives * Full Code (Latest Code Status on File) Date Activated Date Inactivated Comments 12/11/2014 8:42 PM 12/16/2014 12:40 PM Question Answer Comments Code Status Discussion: Not Discussed * Full Code Date Activated Date Inactivated Comments 01/14/2009 10:14 AM 01/15/2009 6:19 PM * Full Code Date Activated Date Inactivated Comments 01/14/2009 5:39 AM 01/14/2009 10:14 AM Care Teams Textile Knitter Relationship Specialty Start Date End Date Lucero Garibay MD [address] [place] [address] PCP - General Family Practice 02/22/22
== END 2023-10-10 11:20 | disposition home or self-care (01) ==
LOC: NFLDREF 10-11 11:07
PROVIDERS: PCP Family Medicine; Referring Provider Family Medicine; Visit Provider Registered Nurse
DX: R30.0 Dysuria (principal); N39.0 Urinary tract infection, site not specified
CPT/HCPCS: 87086

== ENCOUNTER 2023-12-25 07:45 | Outpatient (CLI) | payer OTHER, SELFPAY ==
--- OUTSIDE RECORDS SUMMARY | 2023-12-25 20:41 | XMS_ITS | Clinical Summary ---
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 Closed fracture of triquetral (cuneiform) bone o f wrist 05/22/2006 Overview (05/22/2006): 2002 Resolved Problems Problem Noted Date Diagnosed [...] Comments Blood Pressure 115/75 02/22/2017 5:29 PM SKIDWAY MAN Pulse 55 02/22/2017 5:29 PM SKIDWAY MAN Temperature 36.3 ??C (97.4 ??F) 12/16/2014 8:20 AM CD T Respiratory Rate 16 12/16/2014 8:20 AM CDT Oxygen Saturation 100% 05/14/2015 7:06 AM SKIDWAY MAN Inhaled Oxygen Concentration - - Weight 68.9 [...] Additional history exists COVID-19 vaccine series ( season) 2023 03/01/2021 Influenza for age 50-64 11/18/2023 12/27/2015, 01/05 Pap test for age 21-65 02/15/2026 , 02/15/2023, 12/17/2018, Additional history exists Tdap Completed 06/16/2008 Hepatitis C screening for ag e 18-79 Completed 06/16/2013 Medical Devices Implanted Type Area Emergency Management Consultant Device Identifier Shelf Expiration Date Model / Serial / Lot Seamguard Reinforcement [id number] - [id number] Implanted:Qty: 2 on 01/14/2009 at [facility] N/A: Abdomen [employer] 09/17/2011 [id number] # / / [id number] Seamguard Reinforcement [id number] - [id number] Implanted:Qty: 1 on 01/14/2009 at [facility] N/A: Abdomen [employer] 09/17/2011 [id number] # / / [id number] Procedures Procedure Name Priority Date/Time Associated Diagnosis Comments HPV HIGH RISK Routine 02/15/2023 3:25 PM SKIDWAY MAN XR MAMMO JASWANT UNI ADDL VIEWS RIGHT Routine 02/07/2017 2:44 PM SKIDWAY MAN Abnormal mammogram LIPID PANEL W REFLEX MEASURED LDL Routine 12/15/2016 7:46 AM CDT Overweight ANTI HCV Routine 06/16/2013 8:33 AM CDT Elevated liver enzymes from Last 3 Months or Most Recently Relevant to Health Maintenance Results * HPV HIGH RISK (02/15/2023 3:25 PM SKIDWAY MAN) TYPE 16 Negative Negative 02/21/2023 3:22 PM SKIDWAY MAN [facility] TRAL LABORATORY TYPE 18 Negative Negative 02/21/2023 3:22 PM SKIDWAY MAN [facility] TRAL LABORATORY OTHER HIGH RISK TYPES Negative Negative 02/21/2023 3:22 PM SKIDWAY MAN [facility] TRAL LABORATORY Other (Cervical/Vagina l) 02/15/2023 3:25 PM SKIDWAY MAN 02/19/2023 12:05 PM SKIDWAY MAN [facility]-CENTRAL LABORATORY - 02/21/2023 3:22 PM SKIDWAY MAN HPV types 16, 18, 31, 33, 35, 39, 45, 51, 52, 56, 58, 59, 66 and 68 DNA were undetectable or below the pre-set threshold. Methodology: Jd Salima 4800 HPV Test Lucero Garibay MD MICROBIOLOGY [facility] LABORATORY-CENTRAL LABORATORY [address] [place] [address], [place] * XR MAMMO JASWANT UNI ADDL VIEWS RIGHT (02/07/2017 2:44 PM SKIDWAY MAN) Anatomical Region Laterality Modality BREASTS, Breast Right Mammograph y 02/07/2017 2:44 PM SKIDWAY MAN Narrative 02/07/2017 5:21 PM SKIDWAY MAN XR MAMMO JASWANT UNI ADDL VIEWS RIGHT [...] - 199 mg/dL 12/15/2016 7:01 PM CDT [facility] TRAL LABORATORY TRIGLYCERIDES 40 <150 mg/dL 12/15/2016 7:01 PM CDT [facility] TRAL LABORATORY HDL CHOLESTEROL 76 >40 mg/dL 7 7:01 PM CDT [facility] TRAL LABORATORY NON-HDL CHOLESTEROL 118 <145 mg/dl 12/15/2016 7:01 PM CDT [facility] TRAL LABORATORY CHOL/HDL RATIO 2.55 <4.50 12/15/2016 7:01 PM CDT [facility] TRAL LABORATORY LDL CHOLESTEROL 110 <=130 mg/dL 12/15/2016 7:01 PM CDT [facility] TRAL LABORATORY PROVIDER ORDERED STATUS RANDOM 12/15/2016 7:01 PM CDT [facility] TRAL LABORATORY Blood BLOOD SPECIMEN / Unknown Venipuncture / Unknown 12/15/2016 7:46 AM CDT 12/15/2016 7:46 AM CDT Livier Melendez DO [facility] [address] [place] [address], * ANTI HCV (06/16/2013 8:33 AM CDT) ANTI HCV Non-reacti ve [facility] Blood specimen (specimen) BLOOD SPECIMEN / Unknown 06/16/2013 8:33 AM CDT 06/16/2013 8:20 AM CDT Livier Melendez DO SEND OUTS [facility] LABOR[facility]ORY INTERNAL ZIP [phone] [place] [address] from Last 3 Months or Most Recently [...] 5:39 AM 01/14/2009 10:14 AM Care Teams Automatic Line Set Up Mechanic Relationship Specialty Start Date End Date Lucero Garibay MD [address] [place] [id number] PCP - General Family Practice 02/22/22
== END 2023-12-25 07:46 | disposition home or self-care (01) ==
LOC: NFLDREF 20:39
PROVIDERS: PCP Family Medicine; Referring Provider Family Medicine; Visit Provider Family Medicine
DX: D50.9 Iron deficiency anemia, unspecified (principal); R79.89 Other specified abnormal findings of blood chemistry; E78.5 Hyperlipidemia, unspecified; E55.9 Vitamin D deficiency, unspecified; Z98.84 Bariatric surgery status
CPT/HCPCS: 80053; 80061; 82306; 82607; 82728

== ENCOUNTER 2024-01-01 15:22 | Outpatient (CLI) | payer OTHER, SELFPAY ==
--- NOTE | 2024-01-01 15:40 | CRLHL7_ITS ---
For Patients: As a result of the Cures Act, medical imaging exams and procedure reports are released immediately into your electronic medical record. You may view this report before your referring provider. If you have questions, please contact your health care provider. BILATERAL SCREENING MAMMOGRAM WITH COMPUTER-AIDED DETECTION AND TOMOSYNTHESIS TECHNIQUE: CC and MLO views were obtained. These mammographic images have been obtained using full-field digital technique. These mammographic images were interpreted with the benefit of computer-aided detection. Breast Tomosynthesis was used in this interpretation. COMPARISON FILM: 12/27/22, 08/02/21, 01/30/19. FINDINGS: There are scattered areas of fibroglandular density IMPRESSION: There is no radiographic evidence for malignancy. ASSESSMENT: BI-RADS Category 1: Negative RECOMMENDATION: Routine screening mammogram in 1 year. A lay language report of this examination will be provided to the patient. Myron Shukla M.D. Diagnostic Radiologist [email or web address] BOLIVAR/marcy Transcribed: 2:58 p.mMary Ellen vidal/Dictated by: Myron Shukla MD @ 01/07/2024 11:43:00 AM (Electronically Signed)
== END 2024-01-01 15:23 | disposition home or self-care (01) ==
LOC: MAMMO 15:22
PROVIDERS: PCP Family Medicine; Visit Provider Family Medicine
DX: Z12.31 Encounter for screening mammogram for malignant neoplasm of breast (principal)
CPT/HCPCS: 77063; 77067

== ENCOUNTER 2024-01-23 07:57 | Outpatient (CLI) | payer OTHER, SELFPAY ==
--- OUTSIDE RECORDS SUMMARY | 2024-01-23 07:59 | XMS_ITS | Clinical Summary ---
Author Organization [employer] [facility] s & [facility] Aff[facility]ates Address [place], [place] [address] Care Team Providers Care Manager Of Tax Name Role Phone Lucero Garibay MD Primary [...] Comments Blood Pressure 115/75 02/22/2017 5:29 PM STUMMEL SELECTOR Pulse 55 02/22/2017 5:29 PM STUMMEL SELECTOR Temperature 36.3 ??C (97.4 ??F) 12/16/2014 8:20 AM CD T Respiratory Rate 16 12/16/2014 8:20 AM CDT Oxygen Saturation 100% 05/14/2015 7:06 AM STUMMEL SELECTOR Inhaled Oxygen Concentration - - Weight 68.9 kg (151 lb 12.8 oz) 12/15/2016 7:07 AM CDT Height 162.6 cm (5' 4) 12/15/2016 7:07 AM CDT Body Mass Index 26.06 12/15/2016 7:07 AM CDT Plan of Treatment Upcoming Encounters Date Type Department Care Team (Late st Contact Info) Description 01/23/2024 8:00 AM STUMMEL SELECTOR Ancillary Procedure [facility] [place] [facility] [address] [place] [address] Health Maintenance Due Date Last Done Comments [...] Completed 06/16/2013 Medical Devices Implanted Type Area Industrial Economics Teacher Device Identifier Shelf Expiration Date Model / Serial / Lot Seamguard Reinforcement [id number] - [id number] Implanted:Qty: 2 on 01/14/2009 at [facility] N/A: Abdomen [employer] 09/17/2011 [id number] # / / [id number] Seamguard Reinforcement [id number] - [id number] Implanted:Qty: 1 on 01/14/2009 at [facility] N/A: Abdomen [employer] 09/17/2011 [id number] # / / [id number] Procedures Procedure Name Priority Date/Time Associated Diagnosis Comments HPV HIGH RISK Routine 02/15/2023 3:25 PM STUMMEL SELECTOR XR MAMMO JASWANT UNI ADDL VIEWS RIGHT Routine 02/07/2017 2:44 PM STUMMEL SELECTOR Abnormal mammogram LIPID PANEL W REFLEX MEASURED LDL Routine 12/15/2016 7:46 AM CDT Overweight ANTI HCV Routine 06/16/2013 8:33 AM CDT Elevated liver enzymes from Last 3 Months or Most Recently Relevant to Health Maintenance Results * HPV HIGH RISK (02/15/2023 3:25 PM STUMMEL SELECTOR) TYPE 16 Negative Negative 02/21/2023 3:22 PM STUMMEL SELECTOR [facility] TR[facility] LAB[facility]ATORY TYPE 18 Negative Negative 02/21/2023 3:22 PM STUMMEL SELECTOR [facility] TR[facility] LAB[facility]ORY OTHER HIGH RISK TYPES Negative Negative 02/21/2023 3:22 PM STUMMEL SELECTOR [facility] TRAL LABORATORY Other (Cervical/Vagina l) 02/15/2023 3:25 PM STUMMEL SELECTOR 02/19/2023 12:05 PM STUMMEL SELECTOR Narrative [facility]-CENTRAL LABORATORY - 02/21/2023 3:22 PM STUMMEL SELECTOR HPV types 16, 18, 31, 33, 35, 39, 45, 51, 52, 56, 58, 59, 66 and 68 DNA were undetectable or below the pre-set threshold. Methodology: Jd Salima 4800 HPV Test Lucero Garibay MD [facility] [address] [place] [address], [place] * XR MAMMO JASWANT UNI ADDL VIEWS RIGHT (02/07/2017 2:44 PM STUMMEL SELECTOR) Anatomical Region Laterality Modality BREASTS, Breast Right Mammograph y 02/07/2017 2:44 PM STUMMEL SELECTOR Narrative 02/07/2017 5:21 PM STUMMEL SELECTOR XR MAMMO JASWANT UNI ADDL VIEWS RIGHT [...] 199 mg/dL 12/15/2016 7:01 PM CDT [facility] LABORATORY-[facility] TRAL LABORATORY TRIGLYCERIDES 40 <150 mg/dL 12/15/2016 7:01 PM CDT [facility] TRAL LABORATORY HDL CHOLESTEROL 76 >40 mg/dL 7 7:01 PM CDT [facility] TRAL LABORATORY NON-HDL CHOLESTEROL 118 <145 mg/dl 12/15/2016 7:01 PM CDT [facility] TRAL LABORATORY CHOL/HDL RATIO 2.55 <4.50 12/15/2016 7:01 PM CDT [facility] TRAL LABORATORY LDL CHOLESTEROL 110 <=130 mg/dL 12/15/2016 7:01 PM CDT [facility] TRAL LABORATORY PROVIDER ORDERED STATUS RANDOM 12/15/2016 7:01 PM CDT [facility] TRAL LABORATORY Blood BLOOD SPECIMEN / Unknown Venipuncture / Unknown 12/15/2016 7:46 AM CDT 12/15/2016 7:46 AM CDT Livier Melendez DO CHEMISTRY [facility]ORY[facility]AL LABORATORY [address] [place] [address], * ANTI HCV (06/16/2013 8:33 AM CDT) ANTI HCV Non-reacti ve [facility] Blood specimen (specimen) BLOOD SPECIMEN / Unknown 06/16/2013 8:33 AM CDT 06/16/2013 8:20 AM CDT Livier Melendez DO SEND OUTS [facility] LABORATORY INTERNAL ZIP [address] [place] [address] from Last 3 Months or Most Recently [...] 5:39 AM 01/14/2009 10:14 AM Care Teams Manager Of Tax Relationship Specialty Start Date End Date Lucero Garibay MD [address] [place] [address] PCP - General Family Practice 02/22/22
== END 2024-01-23 07:58 | disposition home or self-care (01) ==
LOC: RAD 07:58
PROVIDERS: PCP Family Medicine; Visit Provider Internal Medicine Cardiovascular Disease
DX: I35.0 Nonrheumatic aortic (valve) stenosis (principal); I35.1 Nonrheumatic aortic (valve) insufficiency
CPT/HCPCS: 93306

== ENCOUNTER 2024-02-12 07:18 | Outpatient (CLI) | payer OTHER, SELFPAY ==
--- OUTSIDE RECORDS SUMMARY | 2024-02-12 07:20 | XMS_ITS | Clinical Summary ---
Author Organization [facility] Address [place], [place] [address] Care Team Providers Care Chargeback Analyst Name Role Phone Lucero Garibay MD Primary [...] Encounters Date Type Department Care Team Description 01/23/2024 8:00 AM FISCAL ACCOUNTING CLERK Ancillary Procedure [facility] [place] [facility] [address] [place] [address] 01/23/2024 Telephone [id number] [address] [address] [place] [address] Gabi Santoyo MD Results (01/22 Echo) from Last 3 Months Immunizations Name Administration [...] Comments Blood Pressure 115/75 02/22/2017 5:29 PM FISCAL ACCOUNTING CLERK Pulse 55 02/22/2017 5:29 PM FISCAL ACCOUNTING CLERK Temperature 36.3 C (97.4 F) 12/16/2014 8:20 AM CDT Respiratory Rate 16 12/16/2014 8:20 AM CDT Oxygen Saturation 100% 05/14/2015 7:06 AM FISCAL ACCOUNTING CLERK Inhaled Oxygen Concentration - - Weight 68.9 [...] Completed 06/16/2013 Medical Devices Implanted Type Area Hose Cementer Device Identifier Shelf Expiration Date Model / Serial / Lot Seamguard Reinforcement [id number] - [id number] Implanted:Qty: 2 on 01/14/2009 at [facility] N/A: Abdomen [employer] 09/17/2011 [id number] # / / [id number] Seamguard Reinforcement [id number] - [id number] Implanted:Qty: 1 on 01/14/2009 at [facility] N/A: Abdomen [employer] 09/17/2011 [id number] # / / [id number] Procedures Procedure Name Priority Date/Time Associated Diagnosis Comments ECHO TTE COMPLETE WO CONTRAST Routine 01/23/2024 8:30 AM FISCAL ACCOUNTING CLERK Nonrheumatic aortic (valve) stenosis HPV HIGH RISK Routine 02/15/2023 3:25 PM FISCAL ACCOUNTING CLERK XR MAMMO JASWANT UNI ADDL VIEWS RIGHT Routine 02/07/2017 2:44 PM FISCAL ACCOUNTING CLERK Abnormal mammogram LIPID PANEL W REFLEX MEASURED LDL Routine 12/15/2016 7:46 AM CDT Overweight ANTI HCV Routine 06/16/2013 8:33 AM CDT Elevated liver enzymes from Last 3 Months or Most Recently Relevant to Health Maintenance Results * ECHO TTE COMPLETE WO CONTRAST (01/23/2024 8:30 AM FISCAL ACCOUNTING CLERK) AORTIC VALVE MEAN PG 30 mmHg EJECTION FRACTION 64 % PEAK TR VELOCITY 2.6 m/s LVEDD 4.0 cm Anatomical Region Laterality Modality Ultrasound 01/23/2024 8:15 AM FISCAL ACCOUNTING CLERK Narrative 01/23/2024 8:39 AM FISCAL ACCOUNTING CLERK ECHOCARDIOGRAM CAROLE KESSLER : 1965 58 years Study Date: 01/23/2024 8:15:20 AM Gender: F BP: 118/72 mmHg Height: 163.00 cm BSA: 1.74 m Weight: 69.00 kg Tech: NWA Referring MD: GABI SANTOYO Site: [facility] Reading Location: Mobile-OP Patient Location: Outpatient. Procedure: 2D, Color Doppler and Spectral Doppler. Indication for study: Ao Stenosis Cardiac Rhythm: Regular.Study quality: Good. Final Impressions: 1. Normal left ventricular size, mildly increased wall thickness, normal global systolic function, calculated EF of 64 %. 2. The aortic valve is calcified, probably bicuspid and sclerotic, moderate stenosis(mean gradient 30 mm Hg) and trivial regurgitation. 3. The ascending aorta is normal sized with a maximal diameter of 2.8 cm. 4. Compared to the prior study of 03/30/23, there may be a slight increase in the degree of aortic valve stenosis, but this is also within the margin of error for the test. Chamber Sizes and Function Normal left ventricular size, mildly increased wall thickness, normal global systolic function, calculated EF of 64 %. No resting regional wall motion abnormality visualized. Left atrial size is normal. Left atrial pressure is normal. Right ventricular cavity size is normal, global systolic RV function is normal. RV wall thickness is normal. The right atrium is normal. Right atrial volume index is 24 ml/m . Right atrial area is 15 cm . The pulmonary artery is of normal size and origin. The sinus of Valsalva is normal sized. The ascending aorta is normal sized. Valves, RV Pressures and Diastolic Function The aortic valve is calcified, probably bicuspid and sclerotic, moderate stenosis and trivial regurgitation. The mitral valve is normal in structure, trace mitral regurgitation. Normal diastolic function. The tricuspid valve is normal in structure. Tricuspid regurgitation is mild regurgitation. The tricuspid regurgitant velocity is 2.6 m/s, the estimated right ventricular systolic pressure is 27 mmHg plus right atrial pressure. There is normal estimated pulmonary pressure by tricuspid regurgitation velocity and right atrial pressure. The pulmonic valve is normal. No pulmonary regurgitation. Masses, Effusion, Shunts There is no pericardial effusion. The inferior vena cava is normal sized, respiratory size variation greater than 50%. No left to right shunting was detected by limited color flow Doppler interrogation of the interatrial septum. MEASUREMENTS AND CALCULATIONS 2-D Measurements and LV Function: LVID (d) 4.0 cm Planimetered EF 64 % LVID (s) 2.9 cm LV FS% (2D) 26 % IVS (d) 1.1 cm LVOT diameter 2.1 cm LVPW (d) 1.1 cm HR 59 bpm Ao Sinus 3.0 cm LA Vol index 26 ml/m2 Asc Ao 2.8 cm RA Vol index 24 ml/m2 LA 3.1 cm RA area 15 cm Diastology: Mitral Tissue Doppler Pulmonary veins E Peak 0.9 m/s e', Septum 0.09 m/s Pulm s 70.4 cm/s A Peak 0.9 m/s e', Lateral 0.10 m/s Pulm d 42.4 cm/s E/A 1.1 E/e' Average 9.73 Pulm s/d ratio 1.66 DT 274 msec Aortic Valve: Vmax 3.7 m/s SHANIA (V) 1.18 cm VTI 0.92 m SHANIA (I) 1.09 cm LVOT V max 1.3 m/s Max PG 54 mmHg LVOT VTI 0.30 m Mean PG 30 mmHg SV 100 ml Dim Index 0.32 SV index 58 ml/m CO 5.9 l/min CI 3.4 l/min/m Mitral Valve: MVA 2.8 cm MV P 1/2 79 msec Tricuspid Valve and estimated PA pressures: TR Vmax 2.6 m/s TAPSE 2.5 cm TR maxG 27 mmHg Pulmonic Valve: PV Vmax 1.1 m/s . This study was interpreted by an [facility] accredited facility. CC: [facility] ([facility]) [facility]. Final Procedure Note Myron Tirado MD - 01/23/2024 ECHOCARDIOGRAM CAROEL KESSLER : 1965 58 years Study Date: 01/23/2024 8:15:20 AM Gender: F BP: 118/72 mmHg Height: 163.00 cm BSA: 1.74 m Weight: 69.00 kg Tech: TREV Referring MD: GABI SANTOYO Site: [facility] Reading Location: Mobile-OP Patient Location: Outpatient. Procedure: 2D, Color Doppler and Spectral Doppler. Indication for study: Ao Stenosis Cardiac Rhythm: Regular.Study quality: Good. Final Impressions: 1. Normal left ventricular size, mildly increased wall thickness, normalglobal systolic function, calculated EF of 64 %. 2. The aortic valve is calcified, probably bicuspid and sclerotic,moderate stenosis(mean gradient 30 mm Hg) and trivial regurgitation. 3. The ascending aorta is normal sized with a maximal diameter of 2.8cm. 4. Compared to the prior study of 03/30/23, there may be a slight increasein the degree of aortic valve stenosis, but this is also within the marginof error for the test. Chamber Sizes and Function Normal left ventricular size, mildly increased wall thickness, normalglobal systolic function, calculated EF of 64 %. No resting regional wallmotion abnormality visualized. Left atrial size is normal. Left atrialpressure is normal. Right ventricular cavity size is normal, globalsystolic RV function is normal. RV wall thickness is normal. The rightatrium is normal. Right atrial volume index is 24 ml/m . Right atrialarea is 15 cm . The pulmonary artery is of normal size and origin. Thesinus of Valsalva is normal sized. The ascending aorta is normal sized. Valves, RV Pressures and Diastolic Function The aortic valve is calcified, probably bicuspid and sclerotic, moderatestenosis and trivial regurgitation. The mitral valve is normal instructure, trace mitral regurgitation. Normal diastolic function. Thetricuspid valve is normal in structure. Tricuspid regurgitation is mildregurgitation. The tricuspid regurgitant velocity is 2.6 m/s, theestimated right ventricular systolic pressure is 27 mmHg plus right atrialpressure. There is normal estimated pulmonary pressure by tricuspidregurgitation velocity and right atrial pressure. The pulmonic valve isnormal. No pulmonary regurgitation. Masses, Effusion, Shunts There is no pericardial effusion. The inferior vena cava is normal sized,respiratory size variation greater than 50%. No left to right shunting wasdetected by limited color flow Doppler interrogation of the interatrialseptum. MEASUREMENTS AND CALCULATIONS 2-D Measurements and LV Function: LVID (d) 4.0 cm Planimetered EF 64 % LVID (s) 2.9 cm LV FS% (2D) 26 % IVS (d) 1.1 cm LVOT diameter 2.1 cm LVPW (d) 1.1 cm HR 59 bpm Ao Sinus 3.0 cm LA Vol index 26 ml/m2 Asc Ao 2.8 cm RA Vol index 24 ml/m2 LA 3.1 cm RA area 15 cm Diastology: Mitral Tissue Doppler Pulmonary veins E Peak 0.9 m/s e', Septum 0.09 m/s Pulm s 70.4 cm/s A Peak 0.9 m/s e', Lateral 0.10 m/s Pulm d 42.4 cm/s E/A 1.1 E/e' Average 9.73 Pulm s/d ratio 1.66 DT 274 msec Aortic Valve: Vmax 3.7 m/s SHANIA (V) 1.18 cm VTI 0.92 m SHANIA (I) 1.09 cm LVOT V max 1.3 m/s Max PG 54 mmHg LVOT VTI 0.30 m Mean PG 30 mmHg SV 100 ml Dim Index 0.32 SV index 58 ml/m CO 5.9 l/min CI 3.4 l/min/m Mitral Valve: MVA 2.8 cm MV P 1/2 79 msec Tricuspid Valve and estimated PA pressures: TR Vmax 2.6 m/s TAPSE 2.5 cm TR maxG 27 mmHg Pulmonic Valve: PV Vmax 1.1 m/s . This study was interpreted by an [facility] accredited facility. CC: [facility] ([facility]) [facility]. Final Gabi Santoyo MD ECHO ORD * HPV HIGH RISK (02/15/2023 3:25 PM FISCAL ACCOUNTING CLERK) TYPE 16 Negative Negative 02/21/2023 3:22 PM FISCAL ACCOUNTING CLERK [facility] TRAL LABORATORY TYPE 18 Negative Negative 02/21/2023 3:22 PM FISCAL ACCOUNTING CLERK [facility] LABORAT[facility] TRAL LABORATORY OTHER HIGH RISK TYPES Negative Negative 02/21/2023 3:22 PM FISCAL ACCOUNTING CLERK [facility] LABORATORY-[facility] TRAL LABORATORY Other (Cervical/Vagina l) 02/15/2023 3:25 PM FISCAL ACCOUNTING CLERK 02/19/2023 12:05 PM FISCAL ACCOUNTING CLERK Narrative [facility]-CENTRAL LABORATORY - 02/21/2023 3:22 PM FISCAL ACCOUNTING CLERK HPV types 16, 18, 31, 33, 35, 39, 45, 51, 52, 56, 58, 59, 66 and 68 DNA were undetectable or below the pre-set threshold. Methodology: iSSimple Salima 4800 HPV Test Lucero Garibay MD MICROBIOLOGY [facility] LABORATORY [address] [place] [address], [place] * XR MAMMO JASWANT UNI ADDL VIEWS RIGHT (02/07/2017 2:44 PM FISCAL ACCOUNTING CLERK) Anatomical Region Laterality Modality BREASTS, Breast Right Mammograph y 02/07/2017 2:44 PM FISCAL ACCOUNTING CLERK Narrative 02/07/2017 5:21 PM FISCAL ACCOUNTING CLERK XR MAMMO JASWANT UNI ADDL VIEWS RIGHT [...] patient who should resume annual screening mammography. Procedure Note Renée Pavon MD - 02/07/2017 [...] - 199 mg/dL 12/15/2016 7:01 PM CDT [facility] LABORATORY-[facility] TRAL LABORATORY TRIGLYCERIDES 40 <150 mg/dL 12/15/2016 7:01 PM CDT [facility] TRAL LABORATORY HDL CHOLESTEROL 76 >40 mg/dL 7 7:01 PM CDT [facility] TRAL LABORATORY NON-HDL CHOLESTEROL 118 <145 mg/dl 12/15/2016 7:01 PM CDT [facility] TRAL LABORATORY CHOL/HDL RATIO 2.55 <4.50 12/15/2016 7:01 PM CDT [facility] TRAL LABORATORY LDL CHOLESTEROL 110 <=130 mg/dL 12/15/2016 7:01 PM CDT [facility] TRAL LABORATORY PROVIDER ORDERED STATUS RANDOM 12/15/2016 7:01 PM CDT [facility] TRAL LABORATORY Blood BLOOD SPECIMEN / Unknown Venipuncture / Unknown 12/15/2016 7:46 AM CDT 12/15/2016 7:46 AM CDT Livier Melendez DO CHEMISTRY [facility] LAB[facility]ORY[facility] LABORATORY [address] [place] [address], * ANTI HCV (06/16/2013 8:33 AM CDT) ANTI HCV Non-reacti ve [facility] Blood specimen (specimen) BLOOD SPECIMEN / Unknown 06/16/2013 8:33 AM CDT 06/16/2013 8:20 AM CDT Livier Green Al DO SEND OUTS [facility] LABORATORY INTERNAL ZIP [address] [place] [address] from Last 3 Months or Most Recently [...] 5:39 AM 01/14/2009 10:14 AM Care Teams Chargeback Analyst Relationship Specialty Start Date End Date Lucero Garibay MD [address] [place] [address] PCP - General Family Practice 02/22/22
--- NOTE | 2024-02-12 09:11 | W.ANESCHARGE ---
Anesthesia Charges Start Date/Time Anesthesia Start Date: 02/12/24 Anesthesia Start Time: 08:05 Stop Date/Time Anesthesia Stop Date: 02/12/24 Anesthesia Stop Time: 09:10
--- NOTE | 2024-02-12 09:20 | W.ANESCHARGE ---
Anesthesia Charges Start Date/Time Anesthesia Start Date: 02/12/24 Anesthesia Start Time: 08:05 Stop Date/Time Anesthesia Stop Date: 02/12/24 Anesthesia Stop Time: 09:10
== END 2024-02-12 07:19 | disposition home or self-care (01) ==
LOC: OP CLINIC 07:18
PROVIDERS: PCP Family Medicine; Visit Provider Surgery
DX: K63.5 Polyp of colon (principal); K62.89 Other specified diseases of anus and rectum; K63.89 Other specified diseases of intestine; D12.2 Benign neoplasm of ascending colon; D12.8 Benign neoplasm of rectum
CPT/HCPCS: 00811; 45380; 45385; 45388; 88305; 88341; 88342; J2704

== ENCOUNTER 2024-02-19 16:06 | Outpatient (CLI) | payer OTHER, SELFPAY ==
--- OUTSIDE RECORDS SUMMARY | 2024-02-22 13:30 | XMS_ITS | Clinical Summary ---
Author Organization [facility] [facility] [facility] Address [address] Care Team Providers Care Etl Database Developer Name Role Phone Lucero Garibay MD Primary [...] Encounters Date Type Department Care Team Description 02/21/2024 9:30 AM SMALL ELECTRIC ENGINE TECHNICIAN Office Visit [facility] [address] [place] [address] Priscila Schneider MD Arrived 02/12/2024 Lab Requisition [facility] [phone] Suyapa Gandhi MD 01/23/2024 8:00 AM SMALL ELECTRIC ENGINE TECHNICIAN Ancillary Procedure [facility] [address] [place] [address] 01/23/2024 [facility]phone [facility] [address] [facility] [address] [place] [address] Gabi Santoyo MD Results (01/22 [...] Comments Blood Pressure 115/75 02/22/2017 5:29 PM SMALL ELECTRIC ENGINE TECHNICIAN Pulse 55 02/22/2017 5:29 PM SMALL ELECTRIC ENGINE TECHNICIAN Temperature 36.3 C (97.4 F) 12/16/2014 8:20 AM CDT Respiratory Rate 16 12/16/2014 8:20 AM CDT Oxygen Saturation 100% 05/14/2015 7:06 AM SMALL ELECTRIC ENGINE TECHNICIAN Inhaled Oxygen Concentration - - Weight 68.9 [...] Completed 06/16/2013 Medical Devices Implanted Type Area Printer Technician Device Identifier Shelf Expiration Date Model / Serial / Lot Seamguard Reinforcement [id number] - [id number] Implanted:Qty: 2 on 01/14/2009 at [facility] N/A: Abdomen [employer] 09/17/2011 [id number] # / / [id number] Seamguard Reinforcement [id number] - [id number] Implanted:Qty: 1 on 01/14/2009 at [facility] N/A: Abdomen [employer] 09/17/2011 [id number] # / / [id number] Procedures Procedure Name Priority Date/Time Associated Diagnosis Comments LAB TRACKING EVENT Routine 02/12/2024 8: 45 AM SMALL ELECTRIC ENGINE TECHNICIAN PATH TISSUE EXAM Routine 02/12/2024 8:45 AM SMALL ELECTRIC ENGINE TECHNICIAN ECHO TTE COMPLETE WO CONTRAST Routine 01/23/2024 8:30 AM SMALL ELECTRIC ENGINE TECHNICIAN Nonrheumatic aortic (valve) stenosis HPV HIGH RISK Routine 02/15/2023 3:25 PM SMALL ELECTRIC ENGINE TECHNICIAN XR MAMMO JASWANT UNI ADDL VIEWS RIGHT Routine 02/07/2017 2:44 PM SMALL ELECTRIC ENGINE TECHNICIAN Abnormal mammogram LIPID PANEL W REFLEX MEASURED LDL Routine 12/15/2016 7:46 AM CDT Overweight ANTI HCV Routine 06/16/2013 8:33 AM CDT Elevated liver enzymes from Last 3 Months or Most Recently Relevant to Health Maintenance Results * LAB TRACKING EVENT (02/12/2024 8:45 AM SMALL ELECTRIC ENGINE TECHNICIAN) Other (Other) Client Collect / Unknown 02/12/2024 8:45 AM SMALL ELECTRIC ENGINE TECHNICIAN 02/12/2024 10:16 PM SMALL ELECTRIC ENGINE TECHNICIAN Suyapa Gandhi MD [facility] [address] [place] [address], * PATH TISSUE EXAM (02/12/2024 8:45 AM SMALL ELECTRIC ENGINE TECHNICIAN) Case Report Pathology Report Case: [id number] Authorizing Provider: Suyapa Gandhi MD Collected: 02/12/2024 0845 Ordering Location: [facility] Received: 02/13/2024 0018 Pathologist: Vivek Ly MD Specimens: A) - Ascending Colon Biopsy B) - Ascending Colon Polyp C) - Rectal Polyp 7:41 AM SMALL ELECTRIC ENGINE TECHNICIAN [facility] Amendment 02/20/2024 - DNA mismatch repair enzyme IHC added, see final diagnosis and synoptic sections. 7:41 AM SMALL ELECTRIC ENGINE TECHNICIAN [facility] Final Diagnosis A) COLON, ASCENDING, GRANULAR TISSUE, BIOPSY: 1. Normal colonic mucosa with lymphoid aggregates 2. Negative for microscopic, active, and chronic colitis B) COLON, ASCENDING, BIOPSY: 1. Normal colonic mucosa (clinically, 2 polyps) 2. Negative for serrated change, dysplasia, and malignancy C) RECTUM, POLYPOID MASS, 2 CM FROM THE ANAL VERGE, BIOPSY: 1. Adenocarcinoma, low grade (moderately differentiated) 2. Background adenoma is present 3. Please order CEA level and CT imaging (chest/abdomen/pelvis) prior to treatment 4. Ancillary studies: a. DNA mismatch repair enzymes intact by immunohistochemistry b. See comment and synoptic sections 7:41 AM SMALL ELECTRIC ENGINE TECHNICIAN [facility] Amendment electronically signed by Vivek Ly MD on 02/20/2024 at 7:41 AM Comment C) Dr. Ly discussed the case with Dr. Gandhi on 02/18/2024. This case was seen in consultation with Dr. Dudley. Please contact us with any questions ([facility] GI pathology service [phone]). Neoplastic tissue is available for ancillary studies, to request please contact the [facility] ([phone]). Neoplastic tissue available for ancillary studies: [facility] NGS testing: - FFPE tissue blocks: C1 - Cytology slides: No cytology slides prepared from this specimen Tests using immunostains and/or FISH (requiring 100 cells): C1 Send out (outside vendor) testing requiring 5 x 5 mm of tumor: C1 Ancillary Testing Comment Immunohistochemistry reveals intact nuclear staining for DNA mismatch repair enzymes MLH1, MSH2, MSH6 and PMS2. These results fail to show evidence for defective mismatch repair function or Arreola Syndrome and are approximately 85-90% sensitive for Arreola syndrome. Cancers with this profile are usually microsatellite stable (EMELIA). If Arreola syndrome is strongly suspected clinically please contact us ([facility] GI Pathology Service [phone]). Rarely there can be a functionally significant mutation that leaves the protein intact or other heritable reasons for this finding. 4 7:[address] [facility] Clinical Information Ms. Kessler is a 58 y.o. who presents for therapeutic procedure of known colon polyps. A rectal mass/polyp was identified 2 cm from the anal verge and was removed. Granularity is identified in the ascending colon. Additional polyps removed from the ascending colon. 4 7:[address] [facility] Gross Description A) Received in formalin are 2 painter mucosal fragments averaging 4 mm in greatest dimension, which are entirely submitted in one cassette. It is labeled with the patient's name and designated ascending colon, granular tissue. B) Received in formalin are 16 painter mucosal fragments ranging from 1 mm to 6 mm in greatest dimension, which are entirely submitted in two cassettes. It is labeled with the patient's name and designated multiple ascending colon polyps. C) Received in formalin are 16 painter mucosal fragments averaging 6 mm in greatest dimension. Also identified is a 16 x 7 x 2 mm aggregate of multiple painter mucosal fragments and 4 pink-painter soft to rubbery polyps ranging from 6 mm to 14 mm. Apparent bases are differentially inked and polyps are sectioned. Tissue is entirely submitted in 5 cassettes. It is labeled with the patient's name and designated rectum polyp. Elena Mcqueen 02/13/2024 3:42 PM 7:41 AM [facility] Microscopic Description The final diagnosis is based on microscopic examination of appropriate sections of all specimens. 7:41 AM [facility] SYNOPTIC REPORTING Colon and Rectum Biomarker Reporting Template COLON AND RECTUM: BIOMARKER REPORTING TEMPLATE - All Specimens Protocol posted: 09/15/2020 RESULTS Mismatch Repair: Immunohistochemistry (IHC) Testing for Mismatch Repair (MMR) Proteins: MLH1 Result: Intact nuclear expression Immunohistochemistry (IHC) Testing for Mismatch Repair (MMR) Proteins: MSH2 Result: Intact nuclear expression Immunohistochemistry (IHC) Testing for Mismatch Repair (MMR) Proteins: MSH6 Result: Intact nuclear expression Immunohistochemistry (IHC) Testing for Mismatch Repair (MMR) Proteins: PMS2 Result: Intact nuclear expression Immunohistochemistry (IHC) Testing for Mismatch Repair (MMR) Proteins: Background nonneoplastic tissue / internal control with intact nuclear expression IHC Interpretation: No loss of nuclear expression of MMR proteins: low probability of MSI-H 7:41 AM [facility] Additional Information Interpreted at [facility], Central Laboratory - [address], [place] [address] Immunohistochemistry controls were reviewed and approved by the pathologist during this examination. 7:41 AM [facility] Other (Ascending Colon Biopsy) 02/12/2024 8:45 AM SMALL ELECTRIC ENGINE TECHNICIAN 02/13/2024 12:18 AM SMALL ELECTRIC ENGINE TECHNICIAN Specimen (specimen) (Ascending Colon Polyp) 02/12/2024 8:45 AM SMALL ELECTRIC ENGINE TECHNICIAN 02/13/2024 12:18 AM SMALL ELECTRIC ENGINE TECHNICIAN Specimen (specimen) (Rectal Polyp ) 02/12/2024 8:45 AM SMALL ELECTRIC ENGINE TECHNICIAN 02/13/2024 12:18 AM SMALL ELECTRIC ENGINE TECHNICIAN Suyapa Gandhi MD PATHOLOGY/CYTOLOGY [facility] LAB[facility] [address] [place] [address], [place] * ECHO TTE COMPLETE WO CONTRAST (01/23/2024 8:30 AM SMALL ELECTRIC ENGINE TECHNICIAN) AORTIC VALVE MEAN PG 30 mmHg EJECTION FRACTION 64 % PEAK TR VELOCITY 2.6 m/s LVEDD 4.0 cm Anatomical Region Laterality Modality Ultrasound 01/23/2024 8:15 AM SMALL ELECTRIC ENGINE TECHNICIAN Narrative 01/23/2024 8:39 AM SMALL ELECTRIC ENGINE TECHNICIAN ECHOCARDIOGRAM CAROLE KESSLER : 1965 58 years Study Date: 01/23/2024 8:15:20 AM Gender: F BP: 118/72 mmHg Height: 163.00 cm BSA: 1.74 m Weight: 69.00 kg Tech: TREV Referring MD: GABI SANTOYO Site: [facility] Reading Location: Mobile-OP Patient [...] . This study was interpreted by an [facility] accredited facility. CC: [facility] (med records) [facility]. Final Procedure Note Myron Tirado MD - 01/23/2024 ECHOCARDIOGRAM CAROLE KESSLER : 1965 58 years Study Date: 01/23/2024 8:15:20 AM Gender: F BP: 118/72 mmHg Height: 163.00 cm BSA: 1.74 m Weight: 69.00 kg Tech: NWA Referring MD: GABI SANTOYO Site: [facility] Reading Location: Mobile-OP Patient [...] . This study was interpreted by an [facility] accredited facility. CC: [facility] ([facility]) [facility]. Final Gabi Santoyo MD ECHO ORD * HPV HIGH RISK (02/15/2023 3:25 PM SMALL ELECTRIC ENGINE TECHNICIAN) TYPE 16 Negative Negative 02/21/2023 3:22 PM SMALL ELECTRIC ENGINE TECHNICIAN [facility] TR[facility] LABORATORY TYPE 18 Negative Negative 02/21/2023 3:22 PM SMALL ELECTRIC ENGINE TECHNICIAN [facility] TR[facility] LAB[facility] OTHER HIGH RISK TYPES Negative Negative 02/21/2023 3:22 PM SMALL ELECTRIC ENGINE TECHNICIAN [facility] Other (Cervical/Vagina l) 02/15/2023 3:25 PM SMALL ELECTRIC ENGINE TECHNICIAN 02/19/2023 12:05 PM SMALL ELECTRIC ENGINE TECHNICIAN Narrative [facility] - 02/21/2023 3:22 PM SMALL ELECTRIC ENGINE TECHNICIAN HPV types 16, 18, 31, 33, 35, 39, 45, 51, 52, 56, 58, 59, 66 and 68 DNA were undetectable or below the pre-set threshold. Methodology: Jd Salima 4800 HPV Test Lucero Garibay MD MICROBIOLOGY [facility] [address] [place] [id number], * XR MAMMO JASWANT UNI ADDL VIEWS RIGHT (02/07/2017 2:44 PM SMALL ELECTRIC ENGINE TECHNICIAN) Anatomical Region Laterality Modality BREASTS, Breast Right Mammograph y 02/07/2017 2:44 PM SMALL ELECTRIC ENGINE TECHNICIAN Narrative 02/07/2017 5:21 PM SMALL ELECTRIC ENGINE TECHNICIAN XR MAMMO JASWANT UNI ADDL VIEWS RIGHT [...] - 199 mg/dL 12/15/2016 7:[address] [facility] LABORATORY-[facility] TR[facility] LAB[facility] TRIGLYCERIDES 40 <150 mg/dL 12/15/2016 7:01 PM CDT [facility] LAB[facility] HDL CHOLESTEROL 76 >40 mg/dL 7 7:01 PM CDT [facility] NON-HDL CHOLESTEROL 118 <145 mg/dl 12/15/2016 7:01 PM CDT [facility] CHOL/HDL RATIO 2.55 <4.50 12/15/2016 7:01 PM CDT [facility] LDL CHOLESTEROL 110 <=130 mg/dL 12/15/2016 7:01 PM CDT [facility] TR[facility] LABORAT[facility] PROVIDER ORDERED STATUS RANDOM 12/15/2016 7:01 PM CDT [facility] Blood BLOOD SPECIMEN / Unknown Venipuncture / Unknown 12/15/2016 7:46 AM CDT 12/15/2016 7:46 AM CDT Livier Melendez DO CHEMISTRY [facility] LAB[facility]AT[facility] [address] [place] [address], * ANTI HCV (06/16/2013 8:33 AM CDT) ANTI HCV Non-reacti ve [facility] Blood specimen (specimen) BLOOD SPECIMEN / Unknown 06/16/2013 8:33 AM CDT 06/16/2013 8:20 AM CDT Livier Melendez DO SEND OUTS [facility] INTERNAL ZIP [address] [address] [place] [address] from Last 3 Months or Most Recently [...] 5:39 AM 01/14/2009 10:14 AM Care Teams Etl Database Developer Relationship Specialty Start Date End Date Lucero Garibay MD [address] [place] [address] PCP - General Family Practice 02/22/22
== END 2024-02-19 16:07 | disposition home or self-care (01) ==
LOC: NFLDREF 02-22 13:29
PROVIDERS: PCP Family Medicine; Referring Provider Family Medicine; Visit Provider Surgery
DX: C18.9 Malignant neoplasm of colon, unspecified (principal)
CPT/HCPCS: 82378

== ENCOUNTER 2024-02-22 14:15 | Outpatient (CLI) | payer OTHER, SELFPAY ==
--- OUTSIDE RECORDS SUMMARY | 2024-02-22 14:16 | XMS_ITS | Clinical Summary ---
Author Organization [employer] [facility] Address [place], [place] [address] Care Team Providers Care Med Aide Name Role Phone Lucero Garibay MD Primary [...] Department Care Team Description 02/21/2024 9:30 AM ACCESS SERVICE REPRESENTATIVE Office Visit [facility] [address] [place] [address] Priscila Schneider MD Arrived 02/12/2024 Lab Requisition [facility] [phone] Suyapa Gandhi MD 01/23/2024 8:00 AM ACCESS SERVICE REPRESENTATIVE Ancillary Procedure [facility] [address] [place] [address] 01/23/2024 [facility]phone [facility] [address] [facility] [address] [place] [address] Gabi Santoyo MD Results (01/22 [...] Comments Blood Pressure 115/75 02/22/2017 5:29 PM ACCESS SERVICE REPRESENTATIVE Pulse 55 02/22/2017 5:29 PM ACCESS SERVICE REPRESENTATIVE Temperature 36.3 C (97.4 F) 12/16/2014 8:20 AM CDT Respiratory Rate 16 12/16/2014 8:20 AM CDT Oxygen Saturation 100% 05/14/2015 7:06 AM ACCESS SERVICE REPRESENTATIVE Inhaled Oxygen Concentration - - Weight 68.9 [...] Completed 06/16/2013 Medical Devices Implanted Type Area Airplane And Engine Inspector Device Identifier Shelf Expiration Date Model / Serial / Lot Seamguard Reinforcement [id number] - [id number] Implanted:Qty: 2 on 01/14/2009 at [facility] N/A: Abdomen [employer] 09/17/2011 [id number] # / / [id number] Seamguard Reinforcement [id number] - [id number] Implanted:Qty: 1 on 01/14/2009 at [facility] N/A: Abdomen [employer] 09/17/2011 [id number] # / / [id number] Procedures Procedure Name Priority Date/Time Associated Diagnosis Comments LAB TRACKING EVENT Routine 02/12/2024 8: 45 AM ACCESS SERVICE REPRESENTATIVE PATH TISSUE EXAM Routine 02/12/2024 8:45 AM ACCESS SERVICE REPRESENTATIVE ECHO TTE COMPLETE WO CONTRAST Routine 01/23/2024 8:30 AM ACCESS SERVICE REPRESENTATIVE Nonrheumatic aortic (valve) stenosis HPV HIGH RISK Routine 02/15/2023 3:25 PM ACCESS SERVICE REPRESENTATIVE XR MAMMO JASWANT UNI ADDL VIEWS RIGHT Routine 02/07/2017 2:44 PM ACCESS SERVICE REPRESENTATIVE Abnormal mammogram LIPID PANEL W REFLEX MEASURED LDL Routine 12/15/2016 7:46 AM CDT Overweight ANTI HCV Routine 06/16/2013 8:33 AM CDT Elevated liver enzymes from Last 3 Months or Most Recently Relevant to Health Maintenance Results * LAB TRACKING EVENT (02/12/2024 8:45 AM ACCESS SERVICE REPRESENTATIVE) Other (Other) Client Collect / Unknown 02/12/2024 8:45 AM ACCESS SERVICE REPRESENTATIVE 02/12/2024 10:16 PM ACCESS SERVICE REPRESENTATIVE Suyapa Gandhi MD LAB BILL ONLY [facility] [address] [place] [address], * PATH TISSUE EXAM (02/12/2024 8:45 AM ACCESS SERVICE REPRESENTATIVE) Case Report Pathology Report Case: [id number] Authorizing Provider: Suyapa Gandhi MD Collected: 02/12/2024 0845 Ordering Location: [facility] Received: 02/13/2024 0018 Pathologist: Vivek Ly MD Specimens: A) - Ascending Colon Biopsy B) - Ascending Colon Polyp C) - Rectal Polyp 7:41 AM ACCESS SERVICE REPRESENTATIVE [facility] Amendment 02/20/2024 - DNA mismatch repair enzyme IHC added, see final diagnosis and synoptic sections. 7:41 AM ACCESS SERVICE REPRESENTATIVE [facility] Final Diagnosis A) COLON, ASCENDING, GRANULAR [...] See comment and synoptic sections 7:41 AM ACCESS SERVICE REPRESENTATIVE [facility]- CENTRAL LABORATORY Amendment electronically signed by Vivek Ly MD on 02/20/2024 at 7:41 AM Comment C) Dr. Ly discussed the case with Dr. Gandhi on 02/18/2024. This case was seen in consultation with Dr. Dudley. Please contact us with any questions ([facility] GI pathology service [phone]). Neoplastic tissue is available for ancillary studies, to request please contact the [facility] Pathology Consult Center ([phone]). Neoplastic tissue available for ancillary studies: [facility] NGS testing: - FFPE tissue blocks: [...] is strongly suspected clinically please contact us ([facility] GI Pathology Service [phone]). Rarely there can be a functionally significant mutation that leaves the protein intact or other heritable reasons for this finding. 4 7:41 AM [facility] Clinical Information Ms. Kessler is a 58 y.o. who presents for therapeutic procedure of known colon polyps. A rectal mass/polyp was identified 2 cm from the anal verge and was removed. Granularity is identified in the ascending colon. Additional polyps removed from the ascending colon. 4 7:41 AM [facility] Gross Description A) Received in [...] Elena Mcqueen 02/13/2024 3:42 PM 7:41 AM [facility] LABOR[facility]ORY Microscopic Description The final diagnosis is based on microscopic examination of appropriate sections of all specimens. 7:41 AM [facility] SYNOPTIC REPORTING Colon and Rectum [...] proteins: low probability of MSI-H 7:41 AM [facility] Additional Information Interpreted at [facility], Central Laboratory - [address], [place] [address] Immunohistochemistry controls were reviewed and approved by the pathologist during this examination. 7:41 AM [facility] LABORAT[facility] Other (Ascending Colon Biopsy) 02/12/2024 8:45 AM ACCESS SERVICE REPRESENTATIVE 02/13/2024 12:18 AM ACCESS SERVICE REPRESENTATIVE Specimen (specimen) (Ascending Colon Polyp) 02/12/2024 8:45 AM ACCESS SERVICE REPRESENTATIVE 02/13/2024 12:18 AM ACCESS SERVICE REPRESENTATIVE Specimen (specimen) (Rectal Polyp ) 02/12/2024 8:45 AM ACCESS SERVICE REPRESENTATIVE 02/13/2024 12:18 AM ACCESS SERVICE REPRESENTATIVE Suyapa Gandhi MD PATHOLOGY/CYTOLOGY [facility]-CEN[facility]AL LABORATORY [address] [place] [address], [place] * ECHO TTE COMPLETE WO CONTRAST (01/23/2024 8:30 AM ACCESS SERVICE REPRESENTATIVE) AORTIC VALVE MEAN PG 30 mmHg EJECTION FRACTION 64 % PEAK TR VELOCITY 2.6 m/s LVEDD 4.0 cm Anatomical Region Laterality Modality Ultrasound 01/23/2024 8:15 AM ACCESS SERVICE REPRESENTATIVE Narrative 01/23/2024 8:39 AM ACCESS SERVICE REPRESENTATIVE ECHOCARDIOGRAM CAROLE KESSLER : 1965 58 years Study Date: 01/23/2024 8:15:20 AM Gender: F BP: 118/72 mmHg Height: 163.00 cm BSA: 1.74 m Weight: 69.00 kg Tech: TREV Referring MD: GABI SANTOYO Site: [facility] Reading Location: Mobile-OP Patient Location: [...] . This study was interpreted by an [facility] accredited facility. CC: [facility] (med records) [facility]. Final Procedure Note Myron Tirado MD - 01/23/2024 ECHOCARDIOGRAM CAROLE KESSLER : 1965 58 years Study Date: 01/23/2024 8:15:20 AM Gender: F BP: 118/72 mmHg Height: 163.00 cm BSA: 1.74 m Weight: 69.00 kg Tech: NWA Referring MD: GABI SANTOYO Site: [facility] Reading Location: Mobile-OP Patient Location: [...] . This study was interpreted by an [facility] accredited facility. CC: [facility] ([facility]) [facility]. Final Gabi Santoyo MD ECHO ORD * HPV HIGH RISK (02/15/2023 3:25 PM ACCESS SERVICE REPRESENTATIVE) TYPE 16 Negative Negative 02/21/2023 3:22 PM ACCESS SERVICE REPRESENTATIVE [facility] TRAL LABORATORY TYPE 18 Negative Negative 02/21/2023 3:22 PM ACCESS SERVICE REPRESENTATIVE [facility] LAB[facility] OTHER HIGH RISK TYPES Negative Negative 02/21/2023 3:22 PM ACCESS SERVICE REPRESENTATIVE [facility] Other (Cervical/Vagina l) 02/15/2023 3:25 PM ACCESS SERVICE REPRESENTATIVE 02/19/2023 12:05 PM ACCESS SERVICE REPRESENTATIVE Narrative [facility] - 02/21/2023 3:22 PM ACCESS SERVICE REPRESENTATIVE HPV types 16, 18, 31, 33, 35, 39, 45, 51, 52, 56, 58, 59, 66 and 68 DNA were undetectable or below the pre-set threshold. Methodology: Jd Salima 4800 HPV Test Lucero Garibay MD MICROBIOLOGY [facility] [address] [place] [address], * XR MAMMO JASWANT UNI ADDL VIEWS RIGHT (02/07/2017 2:44 PM ACCESS SERVICE REPRESENTATIVE) Anatomical Region Laterality Modality BREASTS, Breast Right Mammograph y 02/07/2017 2:44 PM ACCESS SERVICE REPRESENTATIVE Narrative 02/07/2017 5:21 PM ACCESS SERVICE REPRESENTATIVE XR MAMMO JASWANT UNI ADDL VIEWS RIGHT [...] - 199 mg/dL 12/15/2016 7:01 PM CDT [facility] LABORATORY-[facility] TRAL LABORATORY TRIGLYCERIDES 40 <150 mg/dL 12/15/2016 7:01 PM CDT [facility] TRAL LABORATORY HDL CHOLESTEROL 76 >40 mg/dL 7 7:01 PM CDT [facility] TRAL LABORATORY NON-HDL CHOLESTEROL 118 <145 mg/dl 12/15/2016 7:01 PM CDT [facility] TRAL LABORATORY CHOL/HDL RATIO 2.55 <4.50 12/15/2016 7:01 PM CDT [facility] TRAL LABORATORY LDL CHOLESTEROL 110 <=130 mg/dL 12/15/2016 7:01 PM CDT [facility] TR[facility] LABORATORY PROVIDER ORDERED STATUS RANDOM 12/15/2016 7:01 PM CDT [facility] Blood BLOOD SPECIMEN / Unknown Venipuncture / Unknown 12/15/2016 7:46 AM CDT 12/15/2016 7:46 AM CDT Livier Melendez DO CHEMISTRY [facility]AL LABORATORY [address] [place] [address], * ANTI HCV (06/16/2013 8:33 AM CDT) ANTI HCV Non-reacti ve [facility] Blood specimen (specimen) BLOOD SPECIMEN / Unknown 06/16/2013 8:33 AM CDT 06/16/2013 8:20 AM CDT Livier Melendez DO SEND OUTS [facility] LABORATORY [place] ZIP [address] [address] [place] [address] from Last 3 Months or Most Recently [...] 5:39 AM 01/14/2009 10:14 AM Care Teams Med Aide Relationship Specialty Start Date End Date Lucero Garibay MD [address] [place] [address] PCP - General Family Practice 02/22/22
--- NOTE | 2024-02-22 14:30 | CRLHL7_ITS ---
For Patients: As a result of the Century Cures Act, medical imaging exams and procedure reports are released immediately into your electronic medical record. You may view this report before your referring provider. If you have questions, please contact your health care provider. INDICATION: Rectal cancer, initial staging. 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 15 mL Dotarem administered COMPARISON: Same day CT chest abdomen pelvis FINDINGS: RECTUM: At approximately 2 cm above the anal verge, there is an ill-defined region of enhancement along the left lateral and posterior rectum at the junction of the anal sphincter without measurable mass component (15/60), which may represent the site of biopsied rectal polyp. There is no evidence of extension beyond the rectal mucosa. At approximately 9 cm above the anal verge, there is a collapsed short-segment of rectum with mild upstream dilation and possible abnormal enhancement, although again without definable mass component and no evidence of extension beyond the mucosa. Lymph nodes/tumor deposits: At least 3 enlarged perirectal/left pelvic sidewall lymph nodes measure up to 8 mm (15/33 and 35) REMAINING PELVIS: Bladder: Normal. Pelvic organs: Retroflexed uterus which is otherwise unremarkable. The bilateral ovaries are not well seen. Vasculature: Visualized iliac vessels are normal in caliber and patent. Peritoneal space: No free fluid within the pelvis. Musculoskeletal: Bone marrow signal is within normal limits. IMPRESSION: 1. Ill-defined region of enhancement without measurable mass component in the area of previously biopsied rectal polyp. No evidence of extramural extension. An additional region of possible abnormal enhancement approximately 9 cm above the anal verge, although also without definable mass component is indeterminate for secondary lesion or collapsed bowel. Please correlate with colonoscopy. At least 3 adjacent enlarged perirectal lymph nodes to this region raise suspicion that this may represent malignancy. Consider including diffusion-weighted and axial T2 small field of view imaging on follow-up studies that may be helpful. Stage T2N1. 2. Please see same-day CT chest abdomen pelvis for additional findings. Dictated by Ruthann Leo MD @ 02/25/2024 1:00:49 PM (Electronically Signed)
--- NOTE | 2024-02-22 15:30 | CRLHL7_ITS ---
For Patients: As a result of the Century Cures Act, medical imaging exams and procedure reports are released immediately into your electronic medical record. You may view this report before your referring provider. If you have questions, please contact your health care provider. INDICATION: Adenocarcinoma of colon/rectum TECHNIQUE: CT chest, abdomen and pelvis acquired with 90 mL Isovue 370 COMPARISON: CT abdomen pelvis 08/12/2021 FINDINGS: CHEST: Cardiovascular structures: Heart size is normal. Thoracic aorta and main pulmonary artery are normal in caliber. Mediastinum and julissa: No mass or adenopathy. Lungs and pleura: 5 millimeter right perifissural nodule /54. Chest wall and axilla: No mass or adenopathy. ABDOMEN AND PELVIS: Liver: Unremarkable. Gallbladder and bile ducts: Cholecystectomy Pancreas: Unremarkable. Spleen: Tiny hypodensity inferior spleen unchanged Adrenal glands: Unremarkable. Kidneys: Unremarkable. GI tract: status post gastric bypass changes. Bowel anastomosis left abdomen bowel appears unremarkable Vascular structures: Abdominal aorta is normal in caliber. Lymph nodes: Unremarkable. Miscellaneous: Unremarkable. No free air or significant free fluid. Pelvic Organs: Unremarkable. Bones: No suspicious bone lesions. IMPRESSION: No findings for metastatic disease in the chest abdomen or pelvis. Please note that all CT scans at this facility use dose modulation, iterative reconstruction, and/or weight-based dosing when appropriate to reduce radiation dose to as low as reasonably achievable. Dictated by Jessica Elizabeth MD @ 02/25/2024 7:48:20 AM (Electronically Signed)
== END 2024-02-22 14:16 | disposition home or self-care (01) ==
LOC: MRI 14:15
PROVIDERS: PCP Family Medicine; Visit Provider Surgery
DX: C18.9 Malignant neoplasm of colon, unspecified (principal)
CPT/HCPCS: 71260; 72197; 74177; A9575; Q9967

== ENCOUNTER 2024-03-31 07:22 | Day surgery (SDC) | payer OTHER, SELFPAY ==
--- OUTSIDE RECORDS SUMMARY | 2024-03-31 07:25 | XMS_ITS | Clinical Summary ---
Author Organization [facility] Address [place], [place] [address] Care Team Providers Care Cage Fighter Name Role Phone Lucero Garibay MD Primary Care Provider + Allergies No known active allergies Medications * This document contains information received from the source organization and may not represent a complete record from that organization. multivitamin (MVI) tablet Take 1 tablet by mouth once daily. 0 05/14/2015 Active Calcium-Cholecal ciferol, D3, (CALCIUM 500+D) 500 mg(1,250mg) -400 unit chewable tablet Take 1 tablet by mouth 2 times daily. 0 05/14/2015 Active cetirizine (ZYRTEC) 10 mg tabletIndication s:Persistent cough Take 1 tablet by mouth once daily. 30 tablet 6 05/14/2015 Active ferrous sulfate, 65 mg elemental, (IRON, FERROUS SULFATE,) tabletIndication s:S/P gastric bypass,Low ferritin Take 1 tablet by [...] Department Care Team Description 02/21/2024 9:30 AM HAZMAT CDL A DRIVER Office Visit [facility] [address] [place] [address] Priscila Schneider MD 02/12/2024 Lab Requisition [facility] [phone] Suyapa Gandhi MD 01/23/2024 8:00 AM HAZMAT CDL A DRIVER Ancillary Procedure [facility] [address] [place] [address] 01/23/2024 Telephone [facility] [address] [facility] [address] [place] [phone] Gabi Santoyo MD Results (01/22 Echo) from [...] and Fami ly Not on file 04/14/2022 Comments No Sex and Gender Information Value Date Recorded Sex Assigned at Not on file Legal Sex Female 7:18 AM HAZMAT CDL A DRIVER Gender Identity Not on file Sexual Orientation [...] Comments Blood Pressure 115/75 02/22/2017 5:29 PM HAZMAT CDL A DRIVER Pulse 55 02/22/2017 5:29 PM HAZMAT CDL A DRIVER Temperature 36.3 C (97.4 F) 12/16/2014 8:20 AM CDT Respiratory Rate 16 12/16/2014 8:20 AM CDT Oxygen Saturation 100% 05/14/2015 7:06 AM HAZMAT CDL A DRIVER Inhaled Oxygen Concentration - - Weight 68.9 kg (151 lb 12.8 oz) 12/15/2016 7:07 AM CDT Height 162.6 cm (5' 4) 12/15/2016 7:07 AM CDT Body Mass Index 26.06 12/15/2016 7:07 AM CDT Plan of Treatment Health Maintenance Due Date Last Done Comments HIV for age 15-65 1982 Pneumococcal series for age 50+ (1 of 2 - PCV) 1986 Colonoscopy through age 75 2012 Zoster (shingles) [...] Completed 06/16/2013 Medical Devices Implanted Type Area Instructional Materials Director Device Identifier Shelf Expiration Date Model / Serial / Lot Seamguard Reinforcement [id number] - [id number] Implanted:Qty: 2 on 01/14/2009 at [facility] N/A: Abdomen [employer] 09/17/2011 [id number] # / / [id number] Seamguard Reinforcement Gec60 - [id number] Implanted:Qty: 1 on 01/14/2009 at [facility] N/A: Abdomen [employer] 09/17/2011 [id number] # / / [id number] Procedures Procedure Name Priority Date/Time Associated Diagnosis Comments LAB TRACKING EVENT Routine 02/12/2024 8: 45 AM HAZMAT CDL A DRIVER PATH TISSUE EXAM Routine 02/12/2024 8:45 AM HAZMAT CDL A DRIVER ECHO TTE COMPLETE WO CONTRAST Routine 01/23/2024 8:30 AM HAZMAT CDL A DRIVER Nonrheumatic aortic (valve) stenosis HPV HIGH RISK Routine 02/15/2023 3:25 PM HAZMAT CDL A DRIVER XR MAMMO JASWANT UNI ADDL VIEWS RIGHT Routine 02/07/2017 2:44 PM HAZMAT CDL A DRIVER Abnormal mammogram LIPID PANEL W REFLEX MEASURED LDL Routine 12/15/2016 7:46 AM CDT Overweight ANTI HCV Routine 06/16/2013 8:33 AM CDT Elevated liver enzymes from Last 3 Months or Most Recently Relevant to Health Maintenance Results * LAB TRACKING EVENT (02/12/2024 8:45 AM HAZMAT CDL A DRIVER) Other (Other) Client Collect / Unknown 02/12/2024 8:45 AM HAZMAT CDL A DRIVER 02/12/2024 10:16 PM HAZMAT CDL A DRIVER us Suyapa Gandhi MD LAB BILL ONLY [facility] [address] [place] [address], [place] * PATH TISSUE EXAM (02/12/2024 8:45 AM HAZMAT CDL A DRIVER) Case Report Pathology Report Case: [id number] Authorizing Provider: Suyapa Gandhi MD Collected: 02/12/2024 0845 Ordering Location: [facility] Received: 02/13/2024 0018 Pathologist: Vivek Ly MD Specimens: A) - Ascending Colon Biopsy B) - Ascending Colon Polyp C) - Rectal Polyp 4 7:41 AM HAZMAT CDL A DRIVER [facility] Amendment 02/20/2024 - DNA mismatch repair enzyme IHC added, see final diagnosis and synoptic sections. 4 7:41 AM HAZMAT CDL A DRIVER [facility] Final Diagnosis A) COLON, ASCENDING, GRANULAR [...] See comment and synoptic sections 7:41 AM [facility] Amendment electronically signed by Vivek Ly MD on 02/20/2024 at 7:41 AM Comment C) Dr. Ly discussed the case with Dr. Gandhi on 02/18/2024. This case was seen in consultation with Dr. Dudley. Please contact us with any questions ([facility] GI pathology service [phone]). Neoplastic tissue is available for ancillary studies, to request please contact the [facility] ([phone]). Neoplastic tissue available for ancillary studies: [facility] NGS testing: - FFPE tissue blocks: C1 [...] is strongly suspected clinically please contact us ([facility] [phone]). Rarely there can be a functionally significant mutation that leaves the protein intact or other heritable reasons for this finding. 7:41 AM [facility] Clinical Information Ms. Kessler is a 58 y.o. who presents for therapeutic procedure of known colon polyps. A rectal mass/polyp was identified 2 cm from the anal verge and was removed. Granularity is identified in the ascending colon. Additional polyps removed from the ascending colon. 7:41 AM [facility] Gross Description A) Received in formalin [...] Elena Mcqueen 02/13/2024 3:42 PM 7:41 AM [facility] Microscopic Description The final diagnosis is based on microscopic examination of appropriate sections of all specimens. 7:41 AM [facility] SYNOPTIC REPORTING Colon and [...] proteins: low probability of MSI-H 7:41 AM [facility] Additional Information Interpreted at [facility] Central Laboratory - [address], [place] [address] Immunohistochemistry controls were reviewed and approved by the pathologist during this examination. 7:41 AM [facility] Other (Ascending Colon Biopsy) 02/12/2024 8:45 AM HAZMAT CDL A DRIVER 02/13/2024 12:18 AM HAZMAT CDL A DRIVER Specimen (specimen) (Ascending Colon Polyp) 02/12/2024 8:45 AM HAZMAT CDL A DRIVER 02/13/2024 12:18 AM HAZMAT CDL A DRIVER Specimen (specimen) (Rectal Polyp ) 02/12/2024 8:45 AM HAZMAT CDL A DRIVER 02/13/2024 12:18 AM HAZMAT CDL A DRIVER us Suyapa Gandhi MD PATHOLOGY/CYTOLOGY Edited Result - Final [facility] [address] [place] [address], [place] * ECHO TTE COMPLETE WO CONTRAST (01/23/2024 8:30 AM HAZMAT CDL A DRIVER) AORTIC VALVE MEAN PG 30 mmHg EJECTION FRACTION 64 % PEAK TR VELOCITY 2.6 m/s LVEDD 4.0 cm Anatomical Region Laterality Modality Ultrasound 01/23/2024 8:15 AM HAZMAT CDL A DRIVER Narrative 01/23/2024 8:39 AM HAZMAT CDL A DRIVER ECHOCARDIOGRAM CAROLE KESSLER : 1965 58 years Study Date: 01/23/2024 8:15:20 AM Gender: F BP: 118/72 mmHg Height: 163.00 cm BSA: 1.74 m Weight: 69.00 kg Tech: TREV Referring MD: GABI SANTOYO Site: [facility] Reading Location: [place] Patient [...] . This study was interpreted by an [facility] accredited facility. CC: [facility] ([facility]) [facility]. Final Procedure Note Myron Tirado MD - 01/23/2024 ECHOCARDIOGRAM CAROLE KESSLER : 1965 58 years Study Date: 01/23/2024 8:15:20 AM Gender: F BP: 118/72 mmHg Height: 163.00 cm BSA: 1.74 m Weight: 69.00 kg Tech: NWA Referring MD: GABI SANTOYO Site: [facility] Reading Location: [place] Patient [...] interpreted by an [facility] accredited facility. CC: [facility] ([facility]) [facility]. Final us Gabi Santoyo MD ECHO ORD Final Result * HPV HIGH RISK (02/15/2023 3:25 PM HAZMAT CDL A DRIVER) TYPE 16 Negative Negative 02/21/2023 3:22 PM HAZMAT CDL A DRIVER [facility] TYPE 18 Negative Negative 02/21/2023 3:22 PM HAZMAT CDL A DRIVER [facility] OTHER HIGH RISK TYPES Negative Negative 02/21/2023 3:22 PM HAZMAT CDL A DRIVER [facility] Other (Cervical/Vagina l) 02/15/2023 3:25 PM HAZMAT CDL A DRIVER 02/19/2023 12:05 PM HAZMAT CDL A DRIVER Narrative [facility] - 02/21/2023 3:22 PM HAZMAT CDL A DRIVER HPV types 16, 18, 31, 33, 35, 39, 45, 51, 52, 56, 58, 59, 66 and 68 DNA were undetectable or below the pre-set threshold. Methodology: Jd Salima 4800 HPV Test us Lucero Garibay MD MICROBIOLOGY Final Re sult [facility] [address] [place] [address], [place] * XR MAMMO JASWANT UNI ADDL VIEWS RIGHT (02/07/2017 2:44 PM HAZMAT CDL A DRIVER) Anatomical Region Laterality Modality BREASTS, Breast Right Mammograph y 02/07/2017 2:44 PM HAZMAT CDL A DRIVER Narrative 02/07/2017 5:21 PM HAZMAT CDL A DRIVER XR MAMMO JASWANT UNI ADDL VIEWS RIGHT [...] the patient who should resume annual screeningmammography. us Livier Melendez DO MAMMO Final Resul t * LIPID PANEL W REFLEX MEASURED LDL (12/15/2016 7:46 AM CDT) CHOLESTEROL,TOTAL 194 100 - 199 mg/dL 12/15/2016 7:01 PM CDT [facility] TRIGLYCERIDES 40 <150 mg/dL 12/15/2016 7:01 PM CDT [facility] HDL CHOLESTEROL 76 >40 mg/dL 7 7:01 PM CDT [facility] NON-HDL CHOLESTEROL 118 <145 mg/dl 12/15/2016 7:01 PM CDT [facility] CHOL/HDL RATIO 2.55 <4.50 12/15/2016 7:01 PM CDT [facility] LDL CHOLESTEROL 110 <=130 mg/dL 12/15/2016 7:01 PM CDT [facility] PROVIDER ORDERED STATUS RANDOM 12/15/2016 7:01 PM CDT [facility] Blood BLOOD SPECIMEN / Unknown Venipuncture / Unknown 12/15/2016 7:46 AM CDT 12/15/2016 7:46 AM CDT Livier Melendez DO CHEMISTRY Final Resul t [facility] [address] [place] [address], * ANTI HCV (06/16/2013 8:33 AM CDT) ANTI HCV Non-reacti ve [facility] Blood specimen (specimen) BLOOD SPECIMEN / Unknown 06/16/2013 8:33 AM CDT 06/16/2013 8:20 AM CDT Livier Melendez DO SEND OUTS Final Resul t [facility] [place]NAL ZIP [phone] [place] [address] from Last 3 Months or Most Recently Relevant to Health Maintenance Insurance [facility] [employer] LOUIE [id number] [id number] * Guarantor: [facility] [employer] Account Type Relation to Patient Date of Phone Billing Address Contract 2004 [address] [place] [id number] Advance Directives * Full Code (Latest Code Status on File) Date Activated Date Inactivated Comments 12/11/2014 8:42 PM 12/16/2014 12:40 PM Question Answer Comments Code Status Discussion: Not Discussed * Full Code Date Activated Date Inactivated Comments 01/14/2009 10:14 AM 01/15/2009 6:19 PM * Full Code Date Activated Date Inactivated Comments 01/14/2009 5:39 AM 01/14/2009 10:14 AM Care Teams Cage Fighter Relationship Specialty Start Date End Date Lucero Garibay MD [address] [place] [address] PCP - General Family Practice 02/22/22
--- OUTSIDE RECORDS SUMMARY | 2024-03-31 07:25 | XMS_ITS | Continuity of Care Document ---
Author Name [facility]IN User [email or web address] llowed Address Unknown Organization Unknown Address Unknown Procedures FILTER APPLIED:Only known Procedures with Onset Date within the last 5 years Procedure Date Procedure Provider Additiona l Information Status TTE W/DOPPLER COMPLETE (33045) Completed N.GONORRHOEAE DNA AMP PROB (81896) Completed CHLMYD TRACH DNA AMP PROBE (54676) Completed BREAST TOMOSYNTHESIS BI (94842) Completed SCR MAMMO BI INCL CAD (08629) Completed MRI JOINT UPR EXTREM W/O DYE (86955) Completed IRON BINDING TEST (15298) Completed VITAMIN D 25 HYDROXY (33889) Completed LIPID PANEL (80789) Comp leted VITAMIN B-12 (00372) Com pleted ASSAY OF IRON (88125) Co mpleted ASSAY OF FERRITIN (80044) Completed COMPREHEN METABOLIC PANEL (49438) Completed THERAPEUTIC EXERCISES (12221) Completed COLT MDLTY 1+ULTRASOUND EA 15 (69927) Completed PT EVAL MOD COMPLEX 30 MIN (79739) Completed MANUAL THERAPY 1/> REGIONS (06644) Completed Encounters FILTER APPLIED:Only known Encounters with Admission Date within the last 5 years Encounter Location Admission Discharge Billing Code [employer] [facility] Outpatient Radha Garibay Outpatient Radha Garibay Outpatient Derick Khanna Outpatient Radha Garibay Outpatient Derick Khanna Outpatient Radha Garibay Outpatient Chucho Spence
[2024-03-31] MEDS: 0.9 % SODIUM CHLORIDE 500 ML 500 ML 100 ML IV (07:30)
[2024-03-31 07:50] VITALS: BMI 29.0
[2024-03-31 07:58] VITALS: BP 129/96; PULSE 64; RESP 16; TEMP 36.8; O2SAT 100
[2024-03-31 08:01] LABS: Basophils Percent Auto 0.5 % (0.0-3.0); Eosinophils Percent Auto 1.6 % (0.0-7.0); Hematocrit* 38.1 % (33.0-51.0); Hemoglobin* 12.8 gm/dL (12.0-16.0); Lymphocytes Percent Auto 34.6 % (20-44); Mean Corpuscular HGB Conc 34 gm/dL (32-36); Mean Corpuscular Hemoglobin 30 pg (26-34); Mean Corpuscular Volume 91 fL (80-100); Monocytes Percent Auto 6.3 % (0.0-11.0); Platelet Count* 212 K/uL (140-440); RDW Coefficient of Variation % 12.6 % (11.5-15.5); Red Blood Count* 4.21 m/uL (4.00-5.20); White Blood Count* 4.31 K/uL (4.50-11.00)
[2024-03-31] MEDS: SODIUM CHLORIDE 0.9 % (FLUSH) 10 ML SYRINGE IVF (08:03)
[2024-03-31 08:16] LABS: Slide Review Reflex No
[2024-03-31 08:18] LABS: Albumin* 4.1 g/dL (3.3-5.0); Chloride* 107 mmol/L (96-114); Potassium* 3.8 mmol/L (3.6-5.1); Sodium* 139 mmol/L (135-149)
[2024-03-31 08:20] LABS: Anion Gap 4 mEq/L (7-15); Bilirubin Total* 1.1 mg/dL (0.1-1.5); Carbon Dioxide* 28 mmol/L (20-32); Creatinine* 0.7 mg/dL (0.5-1.5); Est. Creatinine Clearance* 74.23; Estimated Glomerular Filt Rate 101 ml/min
[2024-03-31 08:21] LABS: Alanine Aminotransferase* 17 U/L (4-35); Alkaline Phosphatase* 66 U/L (40-150); Aspartate Amino Transferase* 21 U/L (12-35); Blood Urea Nitrogen* 12 mg/dL (7-30); Calcium* 8.7 mg/dL (8.4-10.6); Cholesterol* 215 mg/dL (90-199); Glucose* 100 mg/dL (60-115); Total Protein* 6.7 g/dL (6.0-8.3)
[2024-03-31 08:22] LABS: HDL Cholesterol* 84 mg/dL (>=50); LDL Cholesterol Calculated 117 mg/dL (<100); Triglycerides* 68 mg/dL (40-149)
--- NOTE | 2024-03-31 08:45 | CRLHL7_ITS ---
For Patients: As a result of the Century Cures Act, medical imaging exams and procedure reports are released immediately into your electronic medical record. You may view this report before your referring provider. If you have questions, please contact your health care provider. Indication: Portacath PLACEMENT, POST OP Technique: Chest one view IMPRESSION: Right IJ approach Port-A-Cath is present with the tip in the distal SVC. No pneumothorax. No pleural effusion. Dictated by Myron Shukla MD @ 03/31/2024 10:43:13 AM (Electronically Signed)
--- NOTE | 2024-03-31 08:45 | CRLHL7_ITS ---
For Patients: As a result of the Century Cures Act, medical imaging exams and procedure reports are released immediately into your electronic medical record. You may view this report before your referring provider. If you have questions, please contact your health care provider. Indication: Port-A-Cath placement Technique: Two fluoroscopic images of the chest. Fluoroscopic time 48.0 seconds. IMPRESSION: Fluoroscopic guidance for Port-A-Cath placement. Dictated by Myron Shukla MD @ 03/31/2024 10:44:41 AM (Electronically Signed)
[2024-03-31] MEDS: CEFAZOLIN 1 GM inj IVP (08:59)
[2024-03-31 09:22] LABS: HCG Quantitative* 4.13 mIU/mL
[2024-03-31] MEDS: 0.9% SODIUM CHL 50 ML VIAL INJECTION (09:24)
[2024-03-31] MEDS: LIDOCAINE 1%-EPI 1:100,000 20 ML INFILTRATI (09:24)
[2024-03-31] MEDS: BUPIVACAINE 0.25% 30 ML INJECTION (09:24)
[2024-03-31] MEDS: HEPARIN 500 UNIT/5 ML SYRINGE IVF (09:24)
[2024-03-31 09:46] VITALS: BP 95/60; PULSE 69; RESP 16; TEMP 36.4; O2SAT 98
--- NOTE | 2024-03-31 09:49 | P.ANES_ITS ---
Anesthesia Charges Start Date/Time Anesthesia Start Date: 03/31/24 Anesthesia Start Time: 08:50 Stop Date/Time Anesthesia Stop Date: 03/31/24 Anesthesia Stop Time: 09:49 Coding CPT Codes CPT Codes: ANESTH VASCULAR ACCESS - 77531 ([id number]) P3 - PATIENT W/SEVERE SYS DISEASE, QZ - CURTAINS AND DRAPERIES SALESPERSON SVC W/O OTHER SPORTS COACH OR INSTRUCTOR BY
--- NOTE | 2024-03-31 09:49 | W.ANESCHARGE ---
Anesthesia Charges Start Date/Time Anesthesia Start Date: 03/31/24 Anesthesia Start Time: 08:50 Stop Date/Time Anesthesia Stop Date: 03/31/24 Anesthesia Stop Time: 09:49 Coding CPT Codes CPT Codes: ANESTH VASCULAR ACCESS - 88517 ([id number]) P3 - PATIENT W/SEVERE SYS DISEASE, QZ - MINE INSPECTOR SVC W/O ANTISQUEAK FILLER BY
--- NOTE | 2024-03-31 09:53 | P.GSCN_ITS ---
History of Present Illness Consult details Date Seen: 03/31/24 Consult date: 03/31/24 Narrative: 58-year-old female previously seen in my clinic presents today for Port-A-Cath placement. Patient was recently diagnosed with stage IIIA rectal adenocarcinoma. She was seen by Colorectal surgery and oncology and neoadjuvant chemotherapy was recommended. Patient presents today for Port-A-Cath placement. Patient denies any colds, open sores, procedures on her neck. Review of Systems Narrative: General: no fevers HENT: no problems swallowing CV: no shortness of breath Resp: no cough GI: No nausea, vomiting, abdominal pain : no dysuria, no increased urinary frequency, no hematuria Skin: no new rashes Musculoskeletal: no back pain Neuro: no muscle weakness Psyche: no depression, no anxiety PFSH PFSH Medical History Health care directive on file ?Z78.9 - Other specified health status (ICD-10) Post-menopausal atrophic vaginitis ?N95.2 - Postmenopausal atrophic vaginitis (ICD-10) Family hx of melanoma ?Z80.8 - Family history of malignant neoplasm of other organs or systems (ICD-10) Adhesive capsulitis of left shoulder (07/2022) ?M75.02 - Adhesive capsulitis of left shoulder (ICD-10) Vaginal discharge (~12/2021) ?N89.8 - Other specified noninflammatory disorders of vagina (ICD-10) Elevated LFTs ?R79.89 - Other specified abnormal findings of blood chemistry (ICD-10) Iron deficiency anemia (11/2018) ?D50.9 - Iron deficiency anemia, unspecified (ICD-10) Heart murmur ?R01.1 - Cardiac murmur, unspecified (ICD-10) Moderate aortic stenosis ?I35.0 - Nonrheumatic aortic (valve) stenosis (ICD-10) Biliary colic ?K80.50 - Calculus of bile duct without cholangitis or cholecystitis without obstruction (ICD-10) History of vitamin D deficiency ?Z86.39 - Personal history of other endocrine, nutritional and metabolic disease (ICD-10) History of iron deficiency ?Z86.39 - Personal history of other endocrine, nutritional and metabolic disease (ICD-10) History of alcohol dependence (11/2014) ?F10.21 - Alcohol dependence, in remission (ICD-10) History of acute alcoholic hepatitis (2014) ?Z87.19 - Personal history of other diseases of the digestive system (ICD-10) Depression ?F32.A - Depression, unspecified (ICD-10) Anxiety (2009) ?F41.9 - Anxiety disorder, unspecified (ICD-10) Allergic rhinitis ?J30.9 - Allergic rhinitis, unspecified (ICD-10) Surgical History Hx laparoscopic cholecystectomy (11/2021) ?Z90.49 - Acquired absence of other specified parts of digestive tract (ICD- 10) History of Omayra-en-Y gastric bypass (01/14/09) ?Z98.84 - Bariatric surgery status (ICD-10) History of endometrial ablation (01/2019) ?Z98.890 - Other specified postprocedural states (ICD-10) Family History Father Stroke Diabetes Myocardial infarction, Onset Age: 49 Valvular heart disease Mother Stroke, Onset Age: 90 Melanoma Brother Blood disorder Myocardial infarction, Onset Age: 58 Social History Narrative: , [facility], 3 kids does not drink alcohol(sober since 2014) non-smoker. 7 pack years, quit age 40 walks daily 1-2M/ day What is your current living situation?: I presently have a place to live Problems where you live: no known problems In the past 12 months, utilities in danger of being shut off: no In past 12 months, lack of transportation kept you from medical appts, meetings, work, or getting things needed for daily living: no In the past 12 mos, have been you worried that your food would run out before you had money to buy more?: never true In the past 12 mos, the food you bought just didn't last and you didn't have money to buy more?: never true Smoking Status: Former smoker Do you use any of these nicotine containing products: None How often do you have a drink containing alcohol: never How often do you have six or more drinks on one occasion: Never AUDIT-C Alcohol total score: 0 Non-prescribed substance use: denies use Caffeine: Yes (3-4c/day) How often does anyone, including family, friends and others, physically hurt you : never How often does anyone, including family, friends and others, insult or talk down to you: never How often does anyone, including family, friends and others, threaten you with harm: never How often does anyone, including family, friends and others, scream or curse at you: never Are you using contraception or practicing any form of control: No Meds Home Medications and Allergies Home Medications ?Medication ?Instructions ?Recorded ?Confirmed ?Type cholecalciferol (vitamin D3) 50 2,000 unit PO DAILY 09/28/21 03/26/24 History mcg (2,000 unit) tablet magnesium citrate 100 mg capsule 100 mg PO QDAY 09/28/21 03/26/24 History multivitamin 1 tab PO QAM 09/28/21 03/26/24 History zinc sulfate 50 mg zinc (220 mg) mg PO DAILY 09/28/21 03/26/24 History capsule cetirizine 10 mg tablet 10 mg PO QDAY 03/25/24 03/26/24 History cyanocobalamin (vitamin B-12) 1,000 mcg PO .QOD 03/25/24 03/26/24 History 1,000 mcg tablet,extended release ferrous sulfate 325 mg (65 mg mg PO QDAY 03/25/24 03/26/24 History iron) tablet krill oil 500 mg capsule mg PO DAILY 03/25/24 03/26/24 History Allergies Allergy/AdvReac Type Severity Reaction Status Date / Time No Known Allergies Allergy Verified 03/31/24 07:29 Exam Narrative: Exam Narrative: General appearance: Alert, cooperative, and in no distress Neck: No scars or sores on patient's neck. Pulmonary: Chest symmetric, lungs clear bilaterally, Cardiovascular Heart: Regular rate and rhythm, S1, S2, no murmurs/rubs/gallops Skin: Normal skin color, texture, and turgor. Psychiatric: Alert, cooperative, normal affect. Const: Vital Signs, click to edit/add: Vital Signs - 24 hr 03/31/24 07:58 Temperature 98.2 F Pulse Rate 64 Respiratory Rate 16 Blood Pressure 129/96 H Pulse Oximetry 100 Oxygen Delivery Me thod Room Air Results Labs Labs: Abnormal lab results 03/31/24 Range/Units 07:50 WBC 4.31 L (4.50-11.00) K/uL Anion Gap 4 L (7-15) mEq/L Cholesterol 215 H (90-199) mg/dL LDL Cholesterol, Calc 117 H (<100) mg/dL Diabetes panel 03/31/24 Range/Units 07:50 Sodium 139 (135-149) mmol/L Potassium 3.8 (3.6-5.1) mmol/L Chloride 107 (96-114) mmol/L Carbon Dioxide 28 (20-32) mmol/L BUN 12 (7-30) mg/dL Creatinine 0.7 (0.5-1.5) mg/dL Glucose 100 (60-115) mg/dL Calcium 8.7 (8.4-10.6) mg/dL AST 21 (12-35) U/L ALT 17 (4-35) U/L Alkaline Phosphatase 66 (40-150) U/L Total Protein 6.7 (6.0-8.3) g/dL Albumin 4.1 (3.3-5.0) g/dL Triglycerides 68 (40-149) mg/dL HDL Cholesterol 84 (>=50) mg/dL Calcium panel 03/31/24 Range/Units 07:50 Calcium 8.7 (8.4-10.6) mg/dL Albumin 4.1 (3.3-5.0) g/dL Pituitary panel 03/31/24 Range/Units 07:50 Sodium 139 (135-149) mmol/L Potassium 3.8 (3.6-5.1) mmol/L Chloride 107 (96-114) mmol/L Carbon Dioxide 28 (20-32) mmol/L BUN 12 (7-30) mg/dL Creatinine 0.7 (0.5-1.5) mg/dL Glucose 100 (60-115) mg/dL Calcium 8.7 (8.4-10.6) mg/dL Adrenal panel 03/31/24 Range/Units 07:50 Sodium 139 (135-149) mmol/L Potassium 3.8 (3.6-5.1) mmol/L Chloride 107 (96-114) mmol/L Carbon Dioxide 28 (20-32) mmol/L BUN 12 (7-30) mg/dL Creatinine 0.7 (0.5-1.5) mg/dL Glucose 100 (60-115) mg/dL Calcium 8.7 (8.4-10.6) mg/dL Total Bilirubin 1.1 (0.1-1.5) mg/dL AST 21 (12-35) U/L ALT 17 (4-35) U/L Alkaline Phosphatase 66 (40-150) U/L Total Protein 6.7 (6.0-8.3) g/dL Albumin 4.1 (3.3-5.0) g/dL All other labs normal. Progress Note:A&P Assessment and plan (1) Rectal cancer: Status: Acute Assessment and Plan: 58-year-old female with newly diagnosed rectal adenocarcinoma stage IIIA presents for Port-A-Cath placement. I discussed with the patient the procedure of Port-A-Cath placement and the risks associated procedure including infection, bleeding, pneumothorax, and the need for additional procedures. Patient agreed to proceed.
--- NOTE | 2024-03-31 09:59 | PM.GSPRC ---
Operative Note Date of procedure: 03/31/24 Pre-op diagnosis: 1. Rectal adenocarcinoma stage IIIA. 2. Desire to start neoadjuvant chemotherapy. Post-op diagnosis: Same Type of Procedure: 1. Right internal jugular Port-A-Cath placement under ultrasound and fluoroscopy guidance. Indications: 58-year-old female was recently seen in clinic and diagnosed with rectal adenocarcinoma. She was seen by Colorectal surgery and oncology and neoadjuvant chemotherapy was recommended. Patient was then referred to our surgery service for Port-A-Cath placement. The procedure was discussed in detail. The risks associated procedure including infection, bleeding, pneumothorax, and the need for additional procedures were all discussed with the patient, and she agreed to proceed. Procedure Description: After discussing the risks and benefits of the procedure, the patient signed informed consent.? The operative site was marked and the patient was brought to the operating room and placed on the operating table in supine position.? Care was taken to pad the patient's pressure points.?? The patient was then sedated by anesthesia.?? The operative site was then prepped and draped in the usual sterile fashion.? A time-out was then performed. Ultrasound was brought on to the field and the right internal jugular vein was assessed. This was found to be large and easily compressible. The base of the neck directly overlying the internal jugular vein was then anesthetized with 1% lidocaine and 0.25% Marcaine mixture, and an introducer needle was inserted into the internal jugular vein using ultrasound guidance. Entry into the vein was confirmed by the presence of dark, nonpulsatile blood. A guide wire was advanced through the needle. The introducer needle was removed, leaving the wire in place. Fluoroscopy was brought onto the field and used to confirm the passage of the wire through the superior vena cava and into the inferior vena cava. Lidocaine was then used to infiltrate the port skin site, along with the proposed tunneling tract. A 3 cm incision was made at the site of the port pocket and subcutaneous tissue was dissected down using electrocautery. Subcutaneous pocket was created with blunt dissection and electrocautery. The catheter was advanced through the subcutaneous tissue using a tunneling trocar, exiting the incision at the base of the neck. The trocar was then disconnected. Fluoroscopy was again brought on to the field and the internal jugular vein and adjacent subcutaneous tissue was dilated with a pre-split introducer sheath in place. The wire was removed and the catheter was inserted into the introducer sheath. As the catheter was advanced, the sheath was split and divided, removing the sheath as the catheter was advanced into place. Fluoroscopy was again brought on to the field and the catheter position was examined. The entire course of the catheter was then viewed, and catheter was pulled back under direct visualization to ensure that the tip is in the SVC. The port was connected to the catheter tip and placed into previously created pocket. Prolene was used to place anchoring port sutures and the port was then secured in the pocket. The flow through the catheter was checked with a syringe, and found to be excellent. The incision at the base of the neck was then closed with a single interrupted 4-0 monocryl stitch and dressed with a Steri-Strip and a sterile bandage. Subdermal layer was re-approximated with interrupted 3-0 vicryl stitches and skin over the port was closed with 4-0 monocryl using subcuticular stitch. Marquez needle was inserted through the skin into the port and the port was flushed with heparinized saline. The port was left accessed. Steri strips, sterile 2x2 and 4 x 4 and Tegaderm was applied over the incision. The patient was then roused and brought to same day surgery in satisfactory condition. All counts were correct at the end of the procedure. Post procedure CXR was ordered to be done in same day surgery. ? The patient tolerated the procedure well. Findings: Right internal jugular Port-A-Cath placed with no difficulties. Anesthesia: MAC and local Surgeon: Suyapa Gandhi MD Estimated blood loss (mL): 5 Condition: stable Disposition: same day
[2024-03-31 10:00] VITALS: BP 105/73; PULSE 56; RESP 16; O2SAT 99
[2024-03-31 10:15] VITALS: BP 114/79; PULSE 56; RESP 16; O2SAT 100
[2024-03-31 10:30] VITALS: PULSE 60; RESP 16; O2SAT 99
[2024-03-31 10:40] VITALS: BP 117/71; PULSE 60; RESP 16; O2SAT 99
[2024-04-01 18:29] LABS: Carcinoembryonic Antigen 3.6 ng/mL (<=3.8)
== END 2024-03-31 10:48 | disposition home or self-care (01) ==
PROVIDERS: Internal Medicine Hematology & Oncology; PCP Family Medicine; Visit Provider Surgery
PROC: (CPT 36561; principal; 2024-03-31 08:45)
DX: Z45.2 Encounter for adjustment and management of vascular access device (principal); C20 Malignant neoplasm of rectum
CPT/HCPCS: 36561; 00532; 36415; 71045; 76000; 76998; 80053; 80061; 82378; 84702; 85025; C1788; J0665; J0690; J1100; J1642; J1885; J2250; J2405; J2704; J3010; J7030; J7120

== ENCOUNTER 2024-07-07 14:18 | Outpatient (CLI) | payer OTHER, SELFPAY ==
[2024-07-10 19:07] LABS: HSV 1 Subtype by PCR Not Detected; HSV 2 Subtype by PCR Not Detected; Herpes Simplex Subtype Source Vesicle
== END 2024-07-07 14:19 | disposition home or self-care (01) ==
PROVIDERS: PCP Family Medicine; Visit Provider Physician Assistant
DX: N76.5 Ulceration of vagina (principal)
CPT/HCPCS: 87529

== ENCOUNTER 2024-07-21 13:32 | Outpatient (CLI) | payer OTHER, SELFPAY ==
--- NOTE | 2024-07-21 14:00 | CRLHL7_ITS ---
For Patients: As a result of the Century Cures Act, medical imaging exams and procedure reports are released immediately into your electronic medical record. You may view this report before your referring provider. If you have questions, please contact your health care provider. INDICATION: Follow-up rectal cancer TECHNIQUE: CT chest, abdomen and pelvis acquired with 78 mL Isovue 370 IV contrast. COMPARISON: 02/22/[address], 08/12/[address] FINDINGS: CHEST: Cardiovascular structures: Heart size is normal. Thoracic aorta and main pulmonary artery are normal in caliber. Right-sided Port-A-Cath. Mediastinum and julissa: No mass or adenopathy. Lungs and pleura: Stable Cynthia fissural nodule or intrapulmonary lymph node along the right minor fissure on image 59 series 4. Stable 3 mm nodule left lower lobe image 68. Additional unchanged micro nodules scattered in both lungs on the MIP images. Chest wall and axilla: No mass or adenopathy. Bones: No suspicious bone lesions. Unremarkable for age. ABDOMEN AND PELVIS: Liver: Unremarkable. Gallbladder and bile ducts: Cholecystectomy. Pancreas: Unremarkable. Spleen: Small cyst in the inferior spleen, unchanged. Adrenal glands: Unremarkable. Kidneys: Unremarkable. GI tract: Gastric bypass. Vascular structures: Unremarkable. Lymph nodes: Unremarkable. Miscellaneous: Unremarkable. No free air or significant free fluid. Pelvic Organs: Unremarkable. Bones: No suspicious bone lesions. Unremarkable for age. IMPRESSION: No evidence for metastatic disease. No change. Please note that all CT scans at this facility use dose modulation, iterative reconstruction, and/or weight-based dosing when appropriate to reduce radiation dose to as low as reasonably achievable. Dictated by Conor Pederson MD @ 07/22/2024 4:01:10 PM (Electronically Signed)
== END 2024-07-21 13:33 | disposition home or self-care (01) ==
LOC: CT 13:34
PROVIDERS: PCP Family Medicine; Visit Provider Internal Medicine Hematology & Oncology
DX: C20 Malignant neoplasm of rectum (principal)
CPT/HCPCS: 71260; 74177; Q9967

== ENCOUNTER 2024-07-24 18:05 | Outpatient (CLI) | payer OTHER, SELFPAY ==
--- NOTE | 2024-07-24 18:15 | CRLHL7_ITS ---
For Patients: As a result of the Century Cures Act, medical imaging exams and procedure reports are released immediately into your electronic medical record. You may view this report before your referring provider. If you have questions, please contact your health care provider. INDICATION: Rectal cancer. COMPARISON: Pelvic MRIs dated [address] scan of the chest, abdomen, and pelvis dated 21 Jul 2024. TECHNIQUE: Rectal MRI with T1, T2, and postcontrast images. Intravenous gadolinium administered. FINDINGS: No rectal mass identified. Two small left posterior mesorectal lymph nodes measuring up to 3 mm in short axis, previously 7 mm in short axis. No other mesorectal lymph nodes identified. No pelvic sidewall adenopathy. No other bony or soft tissue abnormalities identified. Impression : 1. No rectal mass identified. 2. Small mesorectal lymph nodes are decreased in size and number. Adan stage: N0. Dictated by Guicho Elizabeth MD @ 07/27/2024 8:34:42 AM (Electronically Signed)
== END 2024-07-24 18:06 | disposition home or self-care (01) ==
LOC: MRI 18:05
PROVIDERS: PCP Family Medicine; Visit Provider Internal Medicine Hematology & Oncology
DX: C20 Malignant neoplasm of rectum (principal)
CPT/HCPCS: 72197; A9575

== ENCOUNTER 2024-09-15 13:30 | Outpatient (RCR) | payer OTHER, SELFPAY ==
--- NOTE | 2024-03-27 15:43 | ONC.NURNOTE ---
Teaching yesterday with and patient on FOLFOX reviewed treatment schedule, self care at home, after hours medical care, possible side effects, management of side effects, body fluid mangement at home, reviewed contents of the chemotherapy binder of information many questions addressed consents NKECHI reviewed and signed Port placement 03/31 chemo start 04/01 accompanied patient daughter will be coming to her first chemo- lay is a nurse
--- NOTE | 2024-03-28 13:28 | URNOTE ---
Request received for authorization for Fluorouracil (5FU) (J9190), Oxaliplatin (J9263), Leucovorin (J0640), Palonosetron (Aloxi) (J2469). Prior authorization is approved per [facility] Ref#[id number], date range:04/01/2024 to 09/28/2024.
--- NOTE | 2024-03-28 13:34 | URNOTE ---
Request received for authorization for Fluorouracil (5FU) (J9190), Oxaliplatin (J9263), Leucovorin (J0640), Ref#[id number], date range:04/01/2024 to 09/28/2024. Palonosetron (Aloxi) (J2469) date range: 04/01/2024 to 06/29/2024, same ref#. Prior authorization is approved per R.
[2024-04-01 08:05] VITALS: BP 108/75; PULSE 63; RESP 16; TEMP 37.1; O2SAT 100
[2024-04-01] MEDS: SODIUM CHLORIDE 0.9 % (FLUSH) 10 ML SYRINGE IVF (08:55)
[2024-04-01] MEDS: dexAMETHasone 20 MG in 0.9 % SODIUM CHLORIDE 100 ml 100 ML 408 MG IVPB (09:02)
[2024-04-01] MEDS: DEXTROSE 5% IV (09:37)
[2024-04-01] MEDS: TUBING PRIMARY IV (09:37)
[2024-04-01] MEDS: OXALIPLATIN IV (09:37)
[2024-04-01] MEDS: LEUCOVORIN CALCIUM 100 MG, TUBING SECONDARY 1 EACH in 5 % DEXTROSE 250 ML 250 ML 128 MG IV (09:37)
[2024-04-01] MEDS: CADD MED CASSETTE RESERVOIR IV (12:03)
[2024-04-01] MEDS: FLUOROURACIL IV (12:03)
--- NOTE | 2024-04-02 15:21 | ONC.NURNOTE ---
Left message- follow up of first chemo yesterday
[2024-04-03 09:46] VITALS: BP 105/70; PULSE 57; RESP 16; TEMP 35.8; O2SAT 100
[2024-04-03] MEDS: HEPARIN 500 UNIT/5 ML SYRINGE IVF (09:55)
[2024-04-03] MEDS: SODIUM CHLORIDE 0.9 % (FLUSH) 10 ML SYRINGE IVF (09:56)
[2024-04-15 14:24] LABS: Hematocrit 35.8 % (33.0-51.0); Hemoglobin* 11.9 gm/dL (12.0-16.0); Immature Granulocytes Abs Auto 0.00 K/uL (0.00-0.30); Immature Granulocytes Pct Auto 0.0 %; Lymphocytes Absolute Auto 2.32 K/uL (0.90-2.90); Mean Corpuscular HGB Conc 33 gm/dL (32-36); Mean Corpuscular Hemoglobin 31 pg (26-34); Mean Corpuscular Volume 93 fL (80-100); RDW Coefficient of Variation % 13.1 % (11.5-15.5); Red Blood Count 3.86 m/uL (4.00-5.20); White Blood Count* 5.74 K/uL (4.50-11.00)
[2024-04-15 14:34] LABS: Slide Review Reflex No
[2024-04-15 14:37] LABS: Albumin* 4.1 g/dL (3.3-5.0)
[2024-04-15 14:38] LABS: Chloride* 106 mmol/L (96-114); Potassium* 4.3 mmol/L (3.6-5.1); Sodium* 139 mmol/L (135-149)
[2024-04-15 14:40] LABS: Anion Gap 5 mEq/L (7-15); Aspartate Amino Transferase* 21 U/L (12-35); Bilirubin Total* 0.9 mg/dL (0.1-1.5); Carbon Dioxide* 28 mmol/L (20-32); Creatinine* 0.8 mg/dL (0.5-1.5); Est. Creatinine Clearance* 64.18; Estimated Glomerular Filt Rate 86 ml/min
[2024-04-15 14:41] LABS: Alanine Aminotransferase* 17 U/L (4-35); Alkaline Phosphatase* 57 U/L (40-150); Blood Urea Nitrogen* 12 mg/dL (7-30); Calcium* 8.6 mg/dL (8.4-10.6); Glucose* 139 mg/dL (60-115); Total Protein* 6.6 g/dL (6.0-8.3)
[2024-04-15 14:58] LABS: HCG Quantitative* 3.89 mIU/mL
[2024-04-16 08:08] VITALS: BP 115/79; PULSE 63; RESP 16; TEMP 35.8; O2SAT 99
[2024-04-16] MEDS: dexAMETHasone 20 MG in 0.9 % SODIUM CHLORIDE 100 ml 100 ML 408 MG IVPB (08:35)
[2024-04-16] MEDS: 5 % DEXTROSE 250 ML IV (08:37)
[2024-04-16] MEDS: LEUCOVORIN CALCIUM 100 MG, TUBING SECONDARY 1 EACH in 5 % DEXTROSE 250 ML 250 ML 128 MG IV (09:20)
[2024-04-16] MEDS: OXALIPLATIN IV (09:20)
[2024-04-16] MEDS: DEXTROSE 5% IV (09:20)
[2024-04-16] MEDS: TUBING PRIMARY IV (09:20)
--- NOTE | 2024-04-16 10:51 | PC.SOCIAL ---
Social work: Met with pt and dtr during [facility] treatment. Introduced social media community manager and shared information on the physical and mental health resources that have been helpful to others. Pt states she works at the [employer] [employer] in [place] and has had a lot of support and offers for help if needed from her co-workers. She shared she currently does not have any un-met needs but is aware of how to contact social work services if needed. Pt was appreciative of visit.
[2024-04-16] MEDS: FLUOROURACIL IV (11:57)
[2024-04-16] MEDS: SODIUM CHLORIDE 0.9 % (FLUSH) 10 ML SYRINGE IVF (11:57)
[2024-04-16] MEDS: CADD MED CASSETTE RESERVOIR IV (11:57)
[2024-04-18 09:33] VITALS: BP 117/75; PULSE 60; RESP 18; TEMP 35.9; O2SAT 99
[2024-04-18] MEDS: SODIUM CHLORIDE 0.9 % (FLUSH) 10 ML SYRINGE IVF (09:48)
[2024-04-18] MEDS: HEPARIN 500 UNIT/5 ML SYRINGE IVF (09:48)
[2024-04-30 08:33] LABS: Hematocrit 35.8 % (33.0-51.0); Hemoglobin* 12.4 gm/dL (12.0-16.0); Immature Granulocytes Abs Auto 0.00 K/uL (0.00-0.30); Immature Granulocytes Pct Auto 0.0 %; Lymphocytes Absolute Auto 1.83 K/uL (0.90-2.90); Mean Corpuscular HGB Conc 35 gm/dL (32-36); Mean Corpuscular Hemoglobin 31 pg (26-34); Mean Corpuscular Volume 90 fL (80-100); RDW Coefficient of Variation % 13.6 % (11.5-15.5); Red Blood Count 3.96 m/uL (4.00-5.20); White Blood Count* 5.33 K/uL (4.50-11.00)
[2024-04-30 08:36] LABS: Slide Review Reflex No
[2024-04-30 08:50] LABS: Albumin* 4.2 g/dL (3.3-5.0); Chloride* 106 mmol/L (96-114); Potassium* 4.1 mmol/L (3.6-5.1); Sodium* 139 mmol/L (135-149)
[2024-04-30 08:53] LABS: Alanine Aminotransferase* 20 U/L (4-35); Alkaline Phosphatase* 67 U/L (40-150); Anion Gap 6 mEq/L (7-15); Aspartate Amino Transferase* 29 U/L (12-35); Bilirubin Total* 1.1 mg/dL (0.1-1.5); Blood Urea Nitrogen* 12 mg/dL (7-30); Carbon Dioxide* 27 mmol/L (20-32); Creatinine* 0.6 mg/dL (0.5-1.5); Est. Creatinine Clearance* 85.57; Estimated Glomerular Filt Rate 105 ml/min; Total Protein* 7.0 g/dL (6.0-8.3)
[2024-04-30 08:54] LABS: Calcium* 9.1 mg/dL (8.4-10.6); Glucose* 83 mg/dL (60-115)
--- NOTE | 2024-04-30 08:55 | ONC.NURNOTE ---
Received fax from KP Diop with [employer]: P: [phone] ext [phone] F: [phone] Fax offering complex care management and requesting records. Reviewed form with pt; she deferred these services at this time as she does not have need of complex care mgt. Fax in paper chart in case pt opts in at a future time. LM for Chik[facility] updating that fax received and pt deferring services at this time.
[2024-04-30 09:10] LABS: HCG Quantitative* 4.37 mIU/mL
[2024-04-30] MEDS: 5 % DEXTROSE 250 ML IV (09:18)
[2024-04-30] MEDS: SODIUM CHLORIDE 0.9 % (FLUSH) 10 ML SYRINGE IVF ×2 (09:19→11:50)
[2024-04-30] MEDS: dexAMETHasone 20 MG in 0.9 % SODIUM CHLORIDE 100 ml 100 ML 408 MG IVPB (09:25)
[2024-04-30] MEDS: OXALIPLATIN IV (09:52)
[2024-04-30] MEDS: DEXTROSE 5% IV (09:52)
[2024-04-30] MEDS: TUBING PRIMARY IV (09:52)
[2024-04-30] MEDS: LEUCOVORIN CALCIUM 100 MG, TUBING SECONDARY 1 EACH in 5 % DEXTROSE 250 ML 250 ML 128 MG IV (09:53)
[2024-04-30] MEDS: FLUOROURACIL IV (12:06)
[2024-04-30] MEDS: CADD MED CASSETTE RESERVOIR IV (12:06)
[2024-05-02 09:52] VITALS: BP 109/75; PULSE 64; RESP 16; TEMP 36.4; O2SAT 100
[2024-05-02] MEDS: HEPARIN 500 UNIT/5 ML SYRINGE IVF (10:00)
[2024-05-02] MEDS: SODIUM CHLORIDE 0.9 % (FLUSH) 10 ML SYRINGE IVF (10:00)
[2024-05-14] MEDS: SODIUM CHLORIDE 0.9 % (FLUSH) 10 ML SYRINGE IVF ×2 (08:55→14:16)
[2024-05-14 09:11] LABS: Hematocrit 35.4 % (33.0-51.0); Hemoglobin* 11.9 gm/dL (12.0-16.0); Immature Granulocytes Abs Auto 0.01 K/uL (0.00-0.30); Immature Granulocytes Pct Auto 0.2 %; Lymphocytes Absolute Auto 1.81 K/uL (0.90-2.90); Mean Corpuscular HGB Conc 34 gm/dL (32-36); Mean Corpuscular Hemoglobin 31 pg (26-34); Mean Corpuscular Volume 91 fL (80-100); RDW Coefficient of Variation % 14.0 % (11.5-15.5); Red Blood Count 3.90 m/uL (4.00-5.20); White Blood Count* 5.15 K/uL (4.50-11.00)
[2024-05-14 09:17] LABS: Slide Review Reflex No
[2024-05-14 09:25] LABS: Albumin* 4.0 g/dL (3.3-5.0); Chloride* 105 mmol/L (96-114); Potassium* 3.9 mmol/L (3.6-5.1); Sodium* 139 mmol/L (135-149)
[2024-05-14 09:27] LABS: Blood Urea Nitrogen* 13 mg/dL (7-30); Creatinine* 0.7 mg/dL (0.5-1.5); Est. Creatinine Clearance* 73.35; Estimated Glomerular Filt Rate 101 ml/min
[2024-05-14 09:28] LABS: Alanine Aminotransferase* 16 U/L (4-35); Alkaline Phosphatase* 58 U/L (40-150); Anion Gap 8 mEq/L (7-15); Aspartate Amino Transferase* 19 U/L (12-35); Bilirubin Total* 1.1 mg/dL (0.1-1.5); Calcium* 8.4 mg/dL (8.4-10.6); Carbon Dioxide* 26 mmol/L (20-32); Glucose* 74 mg/dL (60-115); Total Protein* 6.2 g/dL (6.0-8.3)
[2024-05-14 10:21] LABS: HCG Quantitative* 4.44 mIU/mL
[2024-05-14] MEDS: 5 % DEXTROSE 250 ML IV (10:56)
[2024-05-14] MEDS: dexAMETHasone 20 MG in 0.9 % SODIUM CHLORIDE 100 ml 100 ML 408 MG IVPB (10:58)
[2024-05-14] MEDS: LEUCOVORIN CALCIUM 100 MG, TUBING SECONDARY 1 EACH in 5 % DEXTROSE 250 ML 250 ML 128 MG IV (11:28)
[2024-05-14] MEDS: OXALIPLATIN 5 MG/ML INJ 110 MG, TUBING PRIMARY 1 EACH in 5 % DEXTROSE 250 ML 250 ML 136 MG IV (11:28)
[2024-05-14] MEDS: CADD MED CASSETTE RESERVOIR IV (14:17)
[2024-05-14] MEDS: FLUOROURACIL IV (14:17)
[2024-05-16 12:56] VITALS: BP 111/73; PULSE 59; RESP 14; TEMP 36.3; O2SAT 99
[2024-05-28 08:24] VITALS: BP 113/78; PULSE 58; RESP 14; TEMP 35.7; O2SAT 97
[2024-05-28 08:25] LABS: Hematocrit 36.9 % (33.0-51.0); Hemoglobin* 12.6 gm/dL (12.0-16.0); Immature Granulocytes Pct Auto 0.2 %; Mean Corpuscular HGB Conc 34 gm/dL (32-36); Mean Corpuscular Hemoglobin 31 pg (26-34); Mean Corpuscular Volume 92 fL (80-100); RDW Coefficient of Variation % 14.5 % (11.5-15.5); Red Blood Count 4.03 m/uL (4.00-5.20); White Blood Count* 4.43 K/uL (4.50-11.00)
[2024-05-28 08:34] LABS: Immature Granulocytes Abs Auto 0.00 K/uL (0.00-0.30); Lymphocytes Absolute Auto 1.60 K/uL (0.90-2.90); Slide Review Reflex No
[2024-05-28 08:46] LABS: Albumin* 4.0 g/dL (3.3-5.0); Chloride* 106 mmol/L (96-114)
[2024-05-28 08:47] LABS: Potassium* 4.0 mmol/L (3.6-5.1); Sodium* 138 mmol/L (135-149)
[2024-05-28 08:49] LABS: Anion Gap 5 mEq/L (7-15); Aspartate Amino Transferase* 34 U/L (12-35); Bilirubin Total* 1.0 mg/dL (0.1-1.5); Blood Urea Nitrogen* 12 mg/dL (7-30); Carbon Dioxide* 27 mmol/L (20-32); Creatinine* 0.6 mg/dL (0.5-1.5); Est. Creatinine Clearance* 85.57; Estimated Glomerular Filt Rate 105 ml/min
[2024-05-28 08:50] LABS: Alanine Aminotransferase* 35 U/L (4-35); Alkaline Phosphatase* 66 U/L (40-150); Calcium* 8.8 mg/dL (8.4-10.6); Glucose* 82 mg/dL (60-115); Total Protein* 6.9 g/dL (6.0-8.3)
[2024-05-28] MEDS: dexAMETHasone 20 MG in 0.9 % SODIUM CHLORIDE 100 ml 100 ML 408 MG IVPB (09:20)
[2024-05-28] MEDS: LEUCOVORIN CALCIUM 100 MG, TUBING SECONDARY 1 EACH in 5 % DEXTROSE 250 ML 250 ML 127.5 MG IV (10:01)
[2024-05-28] MEDS: OXALIPLATIN 5 MG/ML INJ 110 MG, TUBING PRIMARY 1 EACH in 5 % DEXTROSE 250 ML 250 ML 136 MG IV (10:01)
[2024-05-28] MEDS: 5 % DEXTROSE 250 ML IV (10:32)
[2024-05-28] MEDS: SODIUM CHLORIDE 0.9 % (FLUSH) 10 ML SYRINGE IVF (10:32)
[2024-05-28] MEDS: FLUOROURACIL IV (12:11)
[2024-05-28] MEDS: CADD MED CASSETTE RESERVOIR IV (12:11)
[2024-05-30 11:04] VITALS: BP 108/64; PULSE 57; RESP 16; TEMP 36.7; O2SAT 98
[2024-05-30] MEDS: SODIUM CHLORIDE 0.9 % (FLUSH) 10 ML SYRINGE IVF (11:05)
[2024-05-30] MEDS: HEPARIN 500 UNIT/5 ML SYRINGE IVF (11:06)
[2024-06-11 08:02] LABS: Hematocrit 35.2 % (33.0-51.0); Hemoglobin* 12.0 gm/dL (12.0-16.0); Immature Granulocytes Abs Auto 0.00 K/uL (0.00-0.30); Immature Granulocytes Pct Auto 0.0 %; Mean Corpuscular HGB Conc 34 gm/dL (32-36); Mean Corpuscular Hemoglobin 32 pg (26-34); Mean Corpuscular Volume 93 fL (80-100); RDW Coefficient of Variation % 14.7 % (11.5-15.5); Red Blood Count 3.78 m/uL (4.00-5.20); White Blood Count* 4.04 K/uL (4.50-11.00)
[2024-06-11 08:05] LABS: Lymphocytes Absolute Auto 1.40 K/uL (0.90-2.90); Slide Review Reflex No
[2024-06-11 08:19] LABS: Chloride* 107 mmol/L (96-114)
[2024-06-11 08:20] LABS: Albumin* 4.1 g/dL (3.3-5.0); Potassium* 4.1 mmol/L (3.6-5.1); Sodium* 141 mmol/L (135-149)
[2024-06-11 08:22] LABS: Blood Urea Nitrogen* 14 mg/dL (7-30); Creatinine* 0.6 mg/dL (0.5-1.5); Est. Creatinine Clearance* 85.57; Estimated Glomerular Filt Rate 105 ml/min
[2024-06-11 08:23] LABS: Alanine Aminotransferase* 44 U/L (4-35); Alkaline Phosphatase* 67 U/L (40-150); Anion Gap 6 mEq/L (7-15); Aspartate Amino Transferase* 47 U/L (12-35); Bilirubin Total* 1.1 mg/dL (0.1-1.5); Calcium* 9.0 mg/dL (8.4-10.6); Carbon Dioxide* 28 mmol/L (20-32); Glucose* 67 mg/dL (60-115); Total Protein* 6.7 g/dL (6.0-8.3)
[2024-06-11] MEDS: 5 % DEXTROSE 250 ML IV (09:06)
[2024-06-11] MEDS: SODIUM CHLORIDE 0.9 % (FLUSH) 10 ML SYRINGE IVF (09:06)
[2024-06-11] MEDS: dexAMETHasone 20 MG in 0.9 % SODIUM CHLORIDE 100 ml 100 ML 408 MG IVPB (09:18)
[2024-06-11] MEDS: OXALIPLATIN 5 MG/ML INJ 110 MG, TUBING PRIMARY 1 EACH in 5 % DEXTROSE 250 ML 250 ML 136 MG IV (09:40)
[2024-06-11] MEDS: LEUCOVORIN CALCIUM 100 MG, TUBING SECONDARY 1 EACH in 5 % DEXTROSE 250 ML 250 ML 128 MG IV (09:40)
[2024-06-11] MEDS: CADD MED CASSETTE RESERVOIR IV (11:43)
[2024-06-11] MEDS: FLUOROURACIL IV (11:43)
[2024-06-13 10:25] VITALS: BP 111/71; PULSE 81; RESP 14; TEMP 35.8; O2SAT 96
[2024-06-13] MEDS: SODIUM CHLORIDE 0.9 % (FLUSH) 10 ML SYRINGE IVF (10:35)
[2024-06-13] MEDS: HEPARIN 500 UNIT/5 ML SYRINGE IVF (10:35)
[2024-06-25 08:48] VITALS: BP 119/81; PULSE 67; RESP 20; TEMP 36; O2SAT 98
[2024-06-25 09:12] LABS: Hematocrit 35.0 % (33.0-51.0); Hemoglobin* 12.0 gm/dL (12.0-16.0); Immature Granulocytes Abs Auto 0.01 K/uL (0.00-0.30); Immature Granulocytes Pct Auto 0.2 %; Lymphocytes Absolute Auto 1.55 K/uL (0.90-2.90); Mean Corpuscular HGB Conc 34 gm/dL (32-36); Mean Corpuscular Hemoglobin 32 pg (26-34); Mean Corpuscular Volume 93 fL (80-100); RDW Coefficient of Variation % 14.6 % (11.5-15.5); Red Blood Count 3.77 m/uL (4.00-5.20); White Blood Count* 4.84 K/uL (4.50-11.00)
[2024-06-25 09:17] LABS: Slide Review Reflex No
[2024-06-25 09:29] LABS: Albumin* 4.1 g/dL (3.3-5.0); Chloride* 108 mmol/L (96-114); Potassium* 3.7 mmol/L (3.6-5.1); Sodium* 141 mmol/L (135-149)
[2024-06-25 09:31] LABS: Blood Urea Nitrogen* 9 mg/dL (7-30); Creatinine* 0.6 mg/dL (0.5-1.5); Est. Creatinine Clearance* 85.57; Estimated Glomerular Filt Rate 105 ml/min
[2024-06-25 09:32] LABS: Alanine Aminotransferase* 30 U/L (4-35); Alkaline Phosphatase* 63 U/L (40-150); Anion Gap 6 mEq/L (7-15); Aspartate Amino Transferase* 34 U/L (12-35); Bilirubin Total* 1.4 mg/dL (0.1-1.5); Calcium* 8.8 mg/dL (8.4-10.6); Carbon Dioxide* 27 mmol/L (20-32); Glucose* 54 mg/dL (60-115); Total Protein* 6.6 g/dL (6.0-8.3)
[2024-06-25] MEDS: 5 % DEXTROSE 250 ML IV (09:57)
[2024-06-25] MEDS: SODIUM CHLORIDE 0.9 % (FLUSH) 10 ML SYRINGE IVF ×2 (09:57→12:37)
[2024-06-25] MEDS: dexAMETHasone 20 MG in 0.9 % SODIUM CHLORIDE 100 ml 100 ML 408 MG IVPB (10:01)
[2024-06-25] MEDS: OXALIPLATIN 5 MG/ML INJ 110 MG, TUBING PRIMARY 1 EACH in 5 % DEXTROSE 250 ML 250 ML 136 MG IV (10:26)
[2024-06-25] MEDS: LEUCOVORIN CALCIUM 100 MG, TUBING SECONDARY 1 EACH in 5 % DEXTROSE 250 ML 250 ML 128 MG IV (10:26)
[2024-06-25] MEDS: FLUOROURACIL IV (12:36)
[2024-06-25] MEDS: CADD MED CASSETTE RESERVOIR IV (12:36)
[2024-06-27] MEDS: SODIUM CHLORIDE 0.9 % (FLUSH) 10 ML SYRINGE IVF (11:45)
[2024-06-27] MEDS: HEPARIN 500 UNIT/5 ML SYRINGE IVF (11:45)
--- NOTE | 2024-07-11 13:04 | URNOTE ---
Prior auth is not required for Palonosetron ([id number]) Per R.07/11/2024-10/10/2024 Ref #[id number]
[2024-07-16 08:31] VITALS: BP 116/80; PULSE 54; RESP 18; TEMP 35.6; O2SAT 96
[2024-07-16 08:50] LABS: Hematocrit 35.2 % (33.0-51.0); Hemoglobin* 12.0 gm/dL (12.0-16.0); Immature Granulocytes Pct Auto 0.2 %; Mean Corpuscular HGB Conc 34 gm/dL (32-36); Mean Corpuscular Hemoglobin 32 pg (26-34); Mean Corpuscular Volume 95 fL (80-100); RDW Coefficient of Variation % 14.4 % (11.5-15.5); Red Blood Count 3.72 m/uL (4.00-5.20); White Blood Count* 4.06 K/uL (4.50-11.00)
[2024-07-16 09:01] LABS: Immature Granulocytes Abs Auto 0.00 K/uL (0.00-0.30); Lymphocytes Absolute Auto 1.70 K/uL (0.90-2.90); Slide Review Reflex No
[2024-07-16 09:06] LABS: Albumin* 4.0 g/dL (3.3-5.0); Chloride* 107 mmol/L (96-114)
[2024-07-16 09:07] LABS: Potassium* 4.2 mmol/L (3.6-5.1); Sodium* 140 mmol/L (135-149)
[2024-07-16 09:09] LABS: Alanine Aminotransferase* 19 U/L (4-35); Anion Gap 5 mEq/L (7-15); Aspartate Amino Transferase* 32 U/L (12-35); Bilirubin Total* 1.0 mg/dL (0.1-1.5); Blood Urea Nitrogen* 16 mg/dL (7-30); Carbon Dioxide* 28 mmol/L (20-32); Creatinine* 0.7 mg/dL (0.5-1.5); Est. Creatinine Clearance* 73.35; Estimated Glomerular Filt Rate 101 ml/min
[2024-07-16 09:10] LABS: Alkaline Phosphatase* 75 U/L (40-150); Calcium* 8.8 mg/dL (8.4-10.6); Glucose* 88 mg/dL (60-115); Total Protein* 6.8 g/dL (6.0-8.3)
[2024-07-16] MEDS: SODIUM CHLORIDE 0.9 % (FLUSH) 10 ML SYRINGE IVF ×2 (09:39→12:55)
[2024-07-16] MEDS: 5 % DEXTROSE 250 ML IV (09:39)
[2024-07-16] MEDS: dexAMETHasone 20 MG in 0.9 % SODIUM CHLORIDE 100 ml 100 ML 408 MG IVPB (10:08)
[2024-07-16] MEDS: OXALIPLATIN 5 MG/ML INJ 110 MG, TUBING PRIMARY 1 EACH in 5 % DEXTROSE 250 ML 250 ML 136 MG IV (10:49)
[2024-07-16] MEDS: LEUCOVORIN CALCIUM 100 MG, TUBING SECONDARY 1 EACH in 5 % DEXTROSE 250 ML 250 ML 128 MG IV (10:49)
[2024-07-16] MEDS: FLUOROURACIL IV (12:56)
[2024-07-16] MEDS: CADD MED CASSETTE RESERVOIR IV (12:56)
[2024-07-18 11:40] VITALS: PULSE 62; RESP 16; TEMP 36.4; O2SAT 99
[2024-07-18] MEDS: SODIUM CHLORIDE 0.9 % (FLUSH) 10 ML SYRINGE IVF (14:09)
[2024-07-18] MEDS: HEPARIN 500 UNIT/5 ML SYRINGE IVF (14:09)
[2024-07-21] MEDS: SODIUM CHLORIDE 0.9 % (FLUSH) 10 ML SYRINGE IVF (13:30)
[2024-07-21] MEDS: HEPARIN 500 UNIT/5 ML SYRINGE IVF (13:30)
[2024-08-06 10:00] LABS: Hematocrit 37.0 % (33.0-51.0); Hemoglobin* 12.5 gm/dL (12.0-16.0); Immature Granulocytes Abs Auto 0.00 K/uL (0.00-0.30); Immature Granulocytes Pct Auto 0.0 %; Mean Corpuscular HGB Conc 34 gm/dL (32-36); Mean Corpuscular Hemoglobin 32 pg (26-34); Mean Corpuscular Volume 96 fL (80-100); RDW Coefficient of Variation % 13.8 % (11.5-15.5); Red Blood Count 3.87 m/uL (4.00-5.20); White Blood Count* 3.74 K/uL (4.50-11.00)
[2024-08-06 10:03] LABS: Lymphocytes Absolute Auto 1.70 K/uL (0.90-2.90); Slide Review Reflex No
[2024-08-06 10:14] LABS: Albumin* 4.3 g/dL (3.3-5.0); Chloride* 103 mmol/L (96-114); Sodium* 137 mmol/L (135-149)
[2024-08-06 10:15] LABS: Potassium* 4.3 mmol/L (3.6-5.1)
[2024-08-06 10:17] LABS: Alanine Aminotransferase* 29 U/L (4-35); Anion Gap 7 mEq/L (7-15); Aspartate Amino Transferase* 40 U/L (12-35); Blood Urea Nitrogen* 12 mg/dL (7-30); Carbon Dioxide* 27 mmol/L (20-32); Creatinine* 0.7 mg/dL (0.5-1.5); Est. Creatinine Clearance* 73.35; Estimated Glomerular Filt Rate 101 ml/min
[2024-08-06 10:18] LABS: Alkaline Phosphatase* 84 U/L (40-150); Bilirubin Total* 1.1 mg/dL (0.1-1.5); Calcium* 8.9 mg/dL (8.4-10.6); Glucose* 92 mg/dL (60-115); Total Protein* 7.2 g/dL (6.0-8.3)
[2024-08-07 12:47] LABS: Carcinoembryonic Antigen 2.6 ng/mL (<=3.8)
--- NOTE | 2024-08-12 11:14 | ONC.NURNOTE ---
Capecitabine: expected to be delivered today- with planned start date of cape and XRT on 08/18/24 coming in for lab and teaching on Sunday medication was ordered from [facility]
[2024-08-15 12:10] LABS: Hematocrit 35.9 % (33.0-51.0); Hemoglobin* 12.1 gm/dL (12.0-16.0); Immature Granulocytes Abs Auto 0.00 K/uL (0.00-0.30); Immature Granulocytes Pct Auto 0.0 %; Lymphocytes Absolute Auto 1.73 K/uL (0.90-2.90); Mean Corpuscular HGB Conc 34 gm/dL (32-36); Mean Corpuscular Hemoglobin 32 pg (26-34); Mean Corpuscular Volume 96 fL (80-100); RDW Coefficient of Variation % 12.9 % (11.5-15.5); Red Blood Count 3.76 m/uL (4.00-5.20); White Blood Count* 4.58 K/uL (4.50-11.00)
[2024-08-15 12:19] LABS: Slide Review Reflex No
[2024-08-15 12:32] LABS: Albumin* 4.1 g/dL (3.3-5.0); Chloride* 105 mmol/L (96-114); Potassium* 4.0 mmol/L (3.6-5.1); Sodium* 139 mmol/L (135-149)
[2024-08-15 12:35] LABS: Alanine Aminotransferase* 20 U/L (4-35); Alkaline Phosphatase* 77 U/L (40-150); Anion Gap 6 mEq/L (7-15); Aspartate Amino Transferase* 31 U/L (12-35); Bilirubin Total* 1.0 mg/dL (0.1-1.5); Blood Urea Nitrogen* 13 mg/dL (7-30); Calcium* 8.8 mg/dL (8.4-10.6); Carbon Dioxide* 28 mmol/L (20-32); Creatinine* 0.7 mg/dL (0.5-1.5); Est. Creatinine Clearance* 73.35; Estimated Glomerular Filt Rate 101 ml/min; Glucose* 83 mg/dL (60-115); Total Protein* 6.9 g/dL (6.0-8.3)
--- NOTE | 2024-08-19 12:22 | ONC.NURNOTE ---
late Entry: from 08/15/24 capecitabine teaching reviewed handout, discussed safe handling and appropriate medical waste disposal, reviewed administration schedule, refills, calling with side effects (hand foot, diarrhea, mouth sores) questions addressed patient has the first 20 day supply and will need a refill to complete the course of treatment appts reviewed- lab and MD lab results called to [facility] on 08/15/24
--- NOTE | 2024-08-20 12:53 | ONC.NURNOTE ---
Capecitabine follow up: reports no concerns with first days of treatment no noticeable side effects reviewed dosing
--- NOTE | 2024-08-26 09:48 | ONC.NURNOTE ---
Capecitabine follow up: Patient has not concerns with changes in bowel habits, hand/foot discomfort or mouth sores She reports that radiation anticipates week 3 to be the turning poing Denies any other questions or concerns
[2024-09-01 13:51] LABS: Hematocrit 34.6 % (33.0-51.0); Hemoglobin* 11.9 gm/dL (12.0-16.0); Immature Granulocytes Pct Auto 0.3 %; Mean Corpuscular HGB Conc 34 gm/dL (32-36); Mean Corpuscular Hemoglobin 32 pg (26-34); Mean Corpuscular Volume 94 fL (80-100); RDW Coefficient of Variation % 13.0 % (11.5-15.5); Red Blood Count 3.69 m/uL (4.00-5.20); White Blood Count* 2.88 K/uL (4.50-11.00)
[2024-09-01] MEDS: SODIUM CHLORIDE 0.9 % (FLUSH) 10 ML SYRINGE IVF (13:51)
[2024-09-01 13:55] LABS: Immature Granulocytes Abs Auto 0.00 K/uL (0.00-0.30); Lymphocytes Absolute Auto 0.60 K/uL (0.90-2.90); Slide Review Reflex No
[2024-09-01 14:09] LABS: Albumin* 4.1 g/dL (3.3-5.0); Chloride* 103 mmol/L (96-114); Potassium* 3.2 mmol/L (3.6-5.1); Sodium* 134 mmol/L (135-149)
[2024-09-01 14:12] LABS: Alanine Aminotransferase* 18 U/L (4-35); Alkaline Phosphatase* 63 U/L (40-150); Anion Gap 6 mEq/L (7-15); Aspartate Amino Transferase* 30 U/L (12-35); Bilirubin Total* 1.1 mg/dL (0.1-1.5); Blood Urea Nitrogen* 11 mg/dL (7-30); Calcium* 8.8 mg/dL (8.4-10.6); Carbon Dioxide* 25 mmol/L (20-32); Creatinine* 0.7 mg/dL (0.5-1.5); Est. Creatinine Clearance* 73.35; Estimated Glomerular Filt Rate 101 ml/min; Glucose* 134 mg/dL (60-115); Total Protein* 6.9 g/dL (6.0-8.3)
[2024-09-08 16:46] LABS: Chloride* 104 mmol/L (96-114)
[2024-09-08 16:47] LABS: Potassium* 3.7 mmol/L (3.6-5.1); Sodium* 134 mmol/L (135-149)
[2024-09-08 16:49] LABS: Blood Urea Nitrogen* 10 mg/dL (7-30); Creatinine* 0.6 mg/dL (0.5-1.5); Est. Creatinine Clearance* 85.57; Estimated Glomerular Filt Rate 105 ml/min
[2024-09-08 16:50] LABS: Anion Gap 6 mEq/L (7-15); Calcium* 8.8 mg/dL (8.4-10.6); Carbon Dioxide* 24 mmol/L (20-32); Glucose* 90 mg/dL (60-115)
--- NOTE | 2024-09-09 13:59 | ONC.NURNOTE ---
K in normal range called to [facility]- message left on VM- encouraged continued K rich diet
--- NOTE | 2024-09-15 11:53 | ONC.NURNOTE ---
Addendum entered by Renée Estrada RN 09/15/24 12:34: [facility] called back and instructed that pt have radiation today as scheduled. will update pt when she arrives for her appointment at [facility]. Original Note: Pt called this morning to report that her Capecitabine delivery will not come until of this week. Pt is due to start her cycle today with radiation. RN called [facility] and it was confirmed that pt ordered drug on 09/08/2024 and it was shipped out on Sunday09/12/2024. The drug is with the [facility] en route to [place]. Nothing can be changed with that order. RN spoke with Bianca Dumont PA-C and a 3 day supply was ordered to supplement the delayed shipment. Pt was contacted and instructed to call [facility] and get the order expedited air overnight so she can take a dose tomorrow. Pt then asked if she should continue with radiation later today. RN called [facility] and asked the question of that team. Will await their call back and will update Candida when she is here for her appointment.
[2024-09-15 13:46] LABS: Hematocrit 32.0 % (33.0-51.0); Hemoglobin* 11.1 gm/dL (12.0-16.0); Mean Corpuscular HGB Conc 35 gm/dL (32-36); Mean Corpuscular Hemoglobin 33 pg (26-34); Mean Corpuscular Volume 95 fL (80-100); RDW Coefficient of Variation % 14.4 % (11.5-15.5); Red Blood Count 3.38 m/uL (4.00-5.20); White Blood Count* 3.74 K/uL (4.50-11.00)
[2024-09-15 13:47] LABS: Immature Granulocytes Abs Auto 0.00 K/uL (0.00-0.30); Immature Granulocytes Pct Auto 0.0 %
[2024-09-15 13:57] LABS: Lymphocytes Absolute Auto 0.40 K/uL (0.90-2.90); Slide Review Reflex No
[2024-09-15 14:01] LABS: Albumin* 4.0 g/dL (3.3-5.0); Chloride* 105 mmol/L (96-114); Potassium* 3.3 mmol/L (3.6-5.1); Sodium* 138 mmol/L (135-149)
[2024-09-15 14:04] LABS: Alkaline Phosphatase* 81 U/L (40-150); Anion Gap 8 mEq/L (7-15); Bilirubin Total* 1.4 mg/dL (0.1-1.5); Blood Urea Nitrogen* 8 mg/dL (7-30); Calcium* 9.0 mg/dL (8.4-10.6); Carbon Dioxide* 25 mmol/L (20-32); Creatinine* 0.6 mg/dL (0.5-1.5); Est. Creatinine Clearance* 85.57; Estimated Glomerular Filt Rate 105 ml/min; Glucose* 97 mg/dL (60-115); Total Protein* 6.4 g/dL (6.0-8.3)
[2024-09-15 14:05] LABS: Alanine Aminotransferase* 30 U/L (4-35); Aspartate Amino Transferase* 34 U/L (12-35)
[2024-09-15] MEDS: HEPARIN 500 UNIT/5 ML SYRINGE IVF (14:30)
[2024-09-15] MEDS: SODIUM CHLORIDE 0.9 % (FLUSH) 10 ML SYRINGE IVF (14:30)
== END 2024-09-21 23:59 | disposition home or self-care (01) ==
LOC: CCIC 13:30
PROVIDERS: Clinical Nurse Specialist; Physician Assistant; PCP Family Medicine; Referring Provider Family Medicine; Visit Provider Internal Medicine Hematology & Oncology
DX: C20 Malignant neoplasm of rectum (principal); E87.6 Hypokalemia
CPT/HCPCS: 36415; 36591; 80048; 80053; 82378; 83735; 84702; 85025; 96367; 96368; 96375; 96413; 96415; 96416; 96417; 99202; 99205; 99211; 99214; 99215; G0463; J0640; J1100; J1642; J2469; J7050; J9190; J9263

== ENCOUNTER 2024-10-27 08:02 | Outpatient (CLI) | payer OTHER, SELFPAY ==
--- NOTE | 2024-10-27 08:15 | CRLHL7_ITS ---
For Patients: As a result of the Century Cures Act, medical imaging exams and procedure reports are released immediately into your electronic medical record. You may view this report before your referring provider. If you have questions, please contact your health care provider. INDICATION: Rectal cancer, response to treatment TECHNIQUE: 1.5 T MRI performed with pre and postcontrast T1 weighted imaging; T2 weighted imaging. 13 cc Dotarem IV. COMPARISON: Pelvic MRI 07/24/2024 FINDINGS: RECTUM: No evidence of recurrence or new rectal mass identified. No lymphadenopathy. Resolved prior small mesorectal lymph nodes. REMAINING PELVIS: Bladder: Normal. Pelvic organs: Retroverted uterus. Vasculature: Visualized iliac vessels are normal in caliber and patent. Peritoneal space: Small amount free fluid within the pelvis. Musculoskeletal: Bone marrow signal is within normal limits. IMPRESSION: 1. No rectal mass identified. 2. No lymphadenopathy. Resolved prior small mesorectal lymph nodes. Adan stage: N0 3. Small amount of free fluid within the pelvis is nonspecific. Dictated by Ruthann Leo MD @ 10/29/2024 9:54:37 AM (Electronically Signed)
--- NOTE | 2024-10-27 09:00 | CRLHL7_ITS ---
For Patients: As a result of the Century Cures Act, medical imaging exams and procedure reports are released immediately into your electronic medical record. You may view this report before your referring provider. If you have questions, please contact your health care provider. Indication: malignant neoplasm of rectum. Assess treatment response Technique: CT Chest/Abd/Pelvis W/ 70CC ISOVUE-370 intravenous contrast Please note that all CT scans at this facility use dose modulation, iterative reconstruction, and/or weight-based dosing when appropriate to reduce radiation dose to as low as reasonably achievable. Comparison: 07/21/2024 Findings: In the chest, the visualized thyroid gland is within normal limits. No mediastinal, hilar or axillary adenopathy. No pleural or pericardial effusion. Stable 4.7 millimeter nodule left lower lobe, . 2 millimeter nodule left upper lobe, 06/14. 3 millimeter nodule right lower lobe is unchanged, . Additional smaller nodules are present elsewhere bilaterally. Stable perifissural nodule on the right, . Also stable tiny perifissural nodule along the right major fissure, . No fracture. No intrinsic osseous lesion. Mild dependent atelectasis. No pleural effusion. No infiltrate or edema. In the abdomen, there is no intrahepatic mass. Incidental focal fat deposition within the liver adjacent to the falciform ligament. The gallbladder is absent. Spleen is normal. Incidental splenule. Stable low-density right adrenal nodule. Left adrenal gland is normal. The kidneys are within normal limits. The pancreas is normal. No retroperitoneal or mesenteric adenopathy. Postop changes of gastric bypass. In the pelvis, the bladder is normal. Uterus unremarkable. Unremarkable ovaries. Mild pelvic free fluid. No bowel obstruction. No pelvic or inguinal adenopathy. No fracture. No intrinsic osseous lesion. Impression: Similar appearance of the rectum without enlarged perirectal lymph nodes. Mild pelvic free fluid. Stable small bilateral pulmonary nodules measuring up to 4.7 millimeters. Stable right adrenal nodule. No hepatic mass. Please note that all CT scans at this facility use dose modulation, iterative reconstruction, and/or weight-based dosing when appropriate to reduce radiation dose to as low as reasonably achievable. Dictated by Myron Shukla MD @ 10/27/2024 10:28:46 AM (Electronically Signed)
== END 2024-10-27 08:03 | disposition home or self-care (01) ==
LOC: MRI 08:03
PROVIDERS: PCP Family Medicine; Visit Provider Physician Assistant
DX: C20 Malignant neoplasm of rectum (principal); R91.8 Other nonspecific abnormal finding of lung field; E27.9 Disorder of adrenal gland, unspecified; C77.9 Secondary and unspecified malignant neoplasm of lymph node, unspecified
CPT/HCPCS: 71260; 72197; 74177; A9575; Q9967

== ENCOUNTER 2024-11-27 08:33 | Outpatient (CLI) | payer OTHER, SELFPAY ==
[2024-11-27 16:12] LABS: Chlamydia DNA Amplified* NOT DETECTED (No Detected); GC DNA Amplified* NOT DETECTED (No Detected)
[2024-11-27 16:22] LABS: Bacterial Vaginosis* Negative (Negative); Candida glab/krus NOT DETECTED (No Detected)
== END 2024-11-27 08:34 | disposition home or self-care (01) ==
PROVIDERS: PCP Family Medicine; Visit Provider Physician Assistant
DX: N89.8 Other specified noninflammatory disorders of vagina (principal)
CPT/HCPCS: 81513; 87481; 87491; 87591; 87661

== ENCOUNTER 2024-12-22 14:46 | Outpatient (CLI) | payer OTHER, SELFPAY | END 2024-12-22 14:47 | disposition home or self-care (01) | LOC: RAD 14:47 | PROVIDERS: PCP Family Medicine; Visit Provider Internal Medicine | DX: I35.0 Nonrheumatic aortic (valve) stenosis (principal) | CPT/HCPCS: 93306 ==

== ENCOUNTER 2025-01-26 15:15 | Outpatient (CLI) | payer OTHER, SELFPAY ==
--- NOTE | 2025-01-26 15:20 | CRLHL7_ITS ---
For Patients: As a result of the Century Cures Act, medical imaging exams and procedure reports are released immediately into your electronic medical record. You may view this report before your referring provider. If you have questions, please contact your health care provider. INDICATION: BILATERAL SCREENING MAMMOGRAM, ASYMPTOMATIC 59 Y/O FEMALE COMPARISON: 01/01/2024, 12/27/2022, 08/02/2021 TECHNIQUE: Digital mammogram in CC and MLO projections including computer-aided detection (CAD) and tomosynthesis. BREAST COMPOSITION: There are scattered areas of fibroglandular density. FINDINGS: No suspicious findings. ASSESSMENT: BI-RADS 1 Negative RECOMMENDATION: Annual screening mammogram. A lay language report of this examination will be provided to the patient. Dictated by: Myron Shukla MD @ 01/27/2025 10:30:49 (Electronically Signed)
== END 2025-01-26 15:16 | disposition home or self-care (01) ==
LOC: MAMMO 15:16
PROVIDERS: PCP Family Medicine; Visit Provider Family Medicine
DX: Z12.31 Encounter for screening mammogram for malignant neoplasm of breast (principal)
CPT/HCPCS: 77063; 77067

== ENCOUNTER 2025-01-27 07:01 | Outpatient (CLI) | payer OTHER, SELFPAY ==
--- NOTE | 2025-01-27 07:15 | CRLHL7_ITS ---
For Patients: As a result of the Century Cures Act, medical imaging exams and procedure reports are released immediately into your electronic medical record. You may view this report before your referring provider. If you have questions, please contact your health care provider. CLINICAL INFORMATION: Rectal cancer. TECHNIQUE: Rectal MRI with T1, T2, diffusion weighted, and postcontrast images. Intravenous gadolinium administered. COMPARISON: Rectal MRIs dated 27 October 2024 and 24 Jul 2024. FINDINGS: Tumor Location and Morphology: No rectal mass identified. Suspicious Mesorectal Lymph Nodes and/or Tumor Deposits: No mesorectal adenopathy. Extra-mesorectal Lymph Nodes: No pelvic sidewall adenopathy. Linear area of edema in the right sacral ala is new. No other bony or soft tissue abnormalities identified. IMPRESSION: 1. No rectal mass identified. 2. No mesorectal adenopathy. 3. New probable right sacral insufficiency fracture. Dictated by Guicho Elizabeth MD @ 01/27/2025 11:56:26 AM (Electronically Signed)
--- NOTE | 2025-01-27 09:00 | CRLHL7_ITS ---
For Patients: As a result of the Century Cures Act, medical imaging exams and procedure reports are released immediately into your electronic medical record. You may view this report before your referring provider. If you have questions, please contact your health care provider. INDICATION: MALIGNANT NEOPLASM OF RECTUM TECHNIQUE: CT chest, abdomen and pelvis acquired 64 milliliters Isovue 370 intravenous contrast. COMPARISON: October 2024 anterior 2021 FINDINGS: CHEST: Lungs and Airways: No mass or consolidation. No endoluminal lesion. Stable scattered sub 6 millimeter indeterminate pulmonary nodules, for example 5 millimeter left lower lobe indeterminate pulmonary nodule. Axial image 64. No new suspicious pulmonary nodules. Heart and Mediastinum: The visualized portions of the thyroid are normal. No axillary or supraclavicular lymphadenopathy. No mediastinal, hilar or retrocrural lymphadenopathy. Normal heart size. Normal caliber aorta. Aortic annular calcifications Pleura: The pleural spaces are normal. ABDOMEN: Liver: Normal enhancement. No focal suspicious hepatic lesions. Gallbladder and biliary: Cholecystectomy. Normal caliber bile ducts. Spleen: Normal size and enhancement. Pancreas: Normal enhancement without peripancreatic inflammatory changes or ductal dilatation. Adrenal glands: Normal adrenal glands. Kidneys and ureters: Normal enhancement. No radio-opaque calculi. No hydroureteronephrosis. GI tract: Omayra-en-Y gastric bypass. Normal caliber small and large bowel loops. Appendix not definitively visualized. Refer to pelvic MRI same day for assessment local regional disease. Vascular structures: Normal caliber abdominal aorta. Lymph nodes: No lymphadenopathy in the abdomen or pelvis by size criteria. Peritoneum: No free air free fluid or focal drainable collection. PELVIS: Genitourinary system: Urinary bladder is partially distended. Hypoattenuating area within the uterine fundus. Incompletely characterized by CT. Consider further assessment on subsequent pelvic MRI. SKELETAL STRUCTURES AND SOFT TISSUES: Lumbar spondylosis. IMPRESSION: 1. No discrete worsening disease in the chest, abdomen, or pelvis. 2. Stable scattered sub 6 millimeter indeterminate pulmonary nodules. 3. Refer to pelvic MRI of same day for assessment of local regional disease. Please note that all CT scans at this facility use dose modulation, iterative reconstruction, and/or weight-based dosing when appropriate to reduce radiation dose to as low as reasonably achievable. Dictated by Myron Huang MD @ 01/27/2025 10:29:47 AM (Electronically Signed)
== END 2025-01-27 07:02 | disposition home or self-care (01) ==
LOC: MRI 07:02
PROVIDERS: PCP Family Medicine; Visit Provider Internal Medicine Hematology & Oncology
DX: C20 Malignant neoplasm of rectum (principal); R91.8 Other nonspecific abnormal finding of lung field
CPT/HCPCS: 71260; 72197; 74177; A9575; Q9967